=== PATIENT | male | born 1955 | race Caucasian/White ===

== ENCOUNTER 2016-07-09 14:13 | Observation (INO) | payer BC, OTHER ==
[2016-07-09] MEDS ORDERED: IPRATROPIUM-ALBUTEROL 3 ML NEB INHALATION STA ×2 (15:05→16:07)
--- NOTE | 2016-07-09 15:09 | ED ---
SOB HPI - General Chief Complaint: Shortness of Breath Stated Complaint: SOB Time Seen by Provider: 07/09/16 14:43 Source: patient, family, RN notes reviewed Mode of arrival: wheelchair Limitations: no limitations - History of Present Illness Initial Comments: This is a [id number] male history of lung cancer this fairly aggressive is had 10 days radiation treatment followed by chemotherapy that was last given 3 weeks ago complains of progressive shortness of breath especially over last 3 days she's had a dry cough no fever chills or sweats he does cough it does any phlegm is clear. He denies any overt chest pain. No complaints he is a former smoker but has never been diagnosed he states was COPD or emphysema. MD Complaint: shortness of breath, cough - Related Data Home Medications Medication Instructions Recorded Confirmed Losartan Potassium [Cozaar] 100 mg PO DAILY 09/08/15 07/09/16 amLODIPine BESYLATE [Norvasc] 10 mg PO DAILY 09/08/15 07/09/16 glipiZIDE [Glucotrol] 5 mg PO AC-BID 09/08/15 07/09/16 metFORMIN HCL [Glucophage] 1,000 mg PO BID 09/08/15 07/09/16 ALPRAZolam [Xanax] 1 mg PO Q8H PRN 07/09/16 07/09/16 Albuterol Inhaler [Ventolin Hfa 1 - 2 puff INHALATION RT-Q6H PRN 07/09/16 Inhaler] Atorvastatin [Lipitor] 20 mg PO HS 07/09/16 07/09/16 HYDROcodone/APAP 7.5-325MG [[place] 1 tab PO Q6HR PRN 07/09/16 07/09/16 7.5-325] Naproxen Sodium/P-Ephed HCl [Aleve 1 tab PO Q12H PRN 07/09/16 07/09/16 Cold and Sinus Caplet] Allergies Allergy/AdvReac Type Severity Reaction Status Date / Time Penicillins AdvReac SEE COMMENT Verified 07/09/16 14:53 Review of Systems ROS Statement: Those systems with pertinent positive or pertinent negative responses have been documented in the HPI. ROS Other: All systems not noted in ROS Statement are negative. Past Medical History Past Medical History: Cancer, Diabetes Mellitus, Hyperlipidemia, Hypertension Additional Past Medical History / Comment(s): diverticulitis, arthritis, kidney stones lung ca and liver ca brain mets History of Any Multi-Drug Resistant Organisms: None Reported Past Surgical History: Orthopedic Surgery Additional Past Surgical History / Comment(s): KIDNEY STONE REMOVED, ORIF Lt tibia, left knee arthroscopy x 2, rey cataracts, Past Anesthesia/Blood Transfusion Reactions: Postoperative Nausea & Vomiting ( PONV) Past Psychological History: No Psychological Hx Reported Smoking Status: Current every day smoker Past Alcohol Use History: None Reported, Heavy Additional Past Alcohol Use History / Comment(s): smoked- 2 PPD for past 30 yrs,lately has cut down to few cig per day, quit drinking >35 years ago drank heavy in younger years then quit Past Drug Use History: None Reported - Past Family History Mother Family Medical History: Cancer Father Additional Family Medical History / Comment(s): ALS General Exam - General Exam Comments Initial Comments: This is a well-developed well-nourished awake alert oriented 3 male Limitations: no limitations General appearance: alert, in no apparent distress Head exam: Present: atraumatic, normocephalic, normal inspection Eye exam: Present: normal appearance, PERRL, EOMI. Absent: scleral icterus, conjunctival injection, periorbital swelling ENT exam: Present: mucous membranes dry Neck exam: Present: normal inspection. Absent: tenderness, meningismus, lymphadenopathy Respiratory exam: Present: wheezes, decreased breath sounds. Absent: respiratory distress, rales, rhonchi, stridor Cardiovascular Exam: Present: regular rate, normal rhythm, normal heart sounds. Absent: systolic murmur, diastolic murmur, rubs, gallop, clicks GI/Abdominal exam: Present: soft, normal bowel sounds. Absent: distended, tenderness, guarding, rebound, rigid Extremities exam: Present: normal inspection, full ROM, normal capillary refill. Absent: tenderness, pedal edema, joint swelling, calf tenderness Back exam: Present: normal inspection Neurological exam: Present: alert, oriented X3, CN II-XII intact Psychiatric exam: Present: normal affect, normal mood Skin exam: Present: warm, dry, intact, normal color. Absent: rash Course Vital Signs 07/09/16 07/09/16 07/09/16 14:30 15:19 15:30 Temperature 97.8 F Pulse Rate 94 90 92 Respiratory 18 Rate Blood Pressure 137/59 O2 Sat by Pulse 93 L Oximetry 07/09/16 07/09/16 07/09/16 16:11 16:12 16:22 Temperature Pulse Rate 94 92 93 Respiratory 20 Rate Blood Pressure 105/65 O2 Sat by Pulse 93 L Oximetry - Reevaluation(s) Reevaluation #1: 07/09/16 16:08 Reevaluation patient revealed him to be still very dyspneic with wheezes and diminished breath sounds rhonchi on the left. Patient will get IV magnesium repeat updraft and some IV steroids Reevaluation #2: 07/09/16 16:39 I did reevaluate the patient after the repeat updraft he did receive IV steroids and IV magnesium is in process. He still does not feel much improved his saturations are in the low 90s to high 80s. Patient will be admitted for inpatient treatment Medical Decision Making - Lab Data Result diagrams: 07/09/16 14:55 07/09/16 14:55 Lab Results 07/09/16 07/09/16 07/09/16 Range/Units 14:55 14:55 14:55 WBC 4.7 (3.8-10.6) k/uL RBC 4.43 (4.30-5.90) m/uL Hgb 13.5 (13.0-17.5) gm/dL Hct 39.9 (39.0-53.0) % MCV 90.1 (80.0-100.0) fL MCH 30.4 (25.0-35.0) pg MCHC 33.7 (31.0-37.0) g/dL RDW 15.9 H (11.5-15.5) % Plt Count 194 (150-450) k/uL Neutrophils % (Manual) 62.0 % Lymphocytes % (Manual) 24.0 % Monocytes % (Manual) 13.0 % Eosinophils % (Manual) 1.0 % Neutrophils # (Manual) 2.9 (1.3-7.7) k/uL Lymphocytes # (Manual) 1.1 (1.0-4.8) k/uL Monocytes # (Manual) 0.6 (0-1.0) k/uL Eosinophils # (Manual) 0.0 (0-0.7) k/uL Nucleated RBCs 0 (0-0) /100 WBC Manual Slide Review Performed PT (9.0-12.0) sec INR (<1.1) APTT (22.0-30.0) sec Sodium 144 (137-145) mmol/L Potassium 4.8 (3.5-5.1) mmol/L Chloride 106 (98-107) mmol/L Carbon Dioxide 20 L (22-30) mmol/L Anion Gap 18 mmol/L BUN 16 (9-20) mg/dL Creatinine 1.09 (0.66-1.25) mg/dL Est GFR (MDRD) Af Amer >60 (>60 ml/min/1.73 sqM) Est GFR (MDRD) Non-Af >60 (>60 ml/min/1.73 sqM) Glucose 105 H (74-99) mg/dL Calcium 9.2 (8.4-10.2) mg/dL Magnesium 1.8 (1.6-2.3) mg/dL Total Bilirubin 0.6 (0.2-1.3) mg/dL AST 28 (17-59) U/L ALT 40 (21-72) U/L Alkaline Phosphatase 146 H (38-126) U/L Total Creatine Kinase 41 L (55-170) U/L CK-MB (CK-2) 0.4 (0.0-2.4) ng/mL CK-MB (CK-2) Rel Index 1.0 Troponin I <0.012 (0.000-0.034) ng/mL NT-Pro-B Natriuret Pep pg/mL Total Protein 7.3 (6.3-8.2) g/dL Albumin 4.2 (3.5-5.0) g/dL 07/09/16 07/09/16 Range/Units 14:55 14:55 WBC (3.8-10.6) k/uL RBC (4.30-5.90) m/uL Hgb (13.0-17.5) gm/dL Hct (39.0-53.0) % MCV (80.0-100.0) fL MCH (25.0-35.0) pg MCHC (31.0-37.0) g/dL RDW (11.5-15.5) % Plt Count (150-450) k/uL Neutrophils % (Manual) % Lymphocytes % (Manual) % Monocytes % (Manual) % Eosinophils % (Manual) % Neutrophils # (Manual) (1.3-7.7) k/uL Lymphocytes # (Manual) (1.0-4.8) k/uL Monocytes # (Manual) (0-1.0) k/uL Eosinophils # (Manual) (0-0.7) k/uL Nucleated RBCs (0-0) /100 WBC Manual Slide Review PT 10.7 (9.0-12.0) sec INR 1.1 (<1.1) APTT 25.3 (22.0-30.0) sec Sodium (137-145) mmol/L Potassium (3.5-5.1) mmol/L Chloride (98-107) mmol/L Carbon Dioxide (22-30) mmol/L Anion Gap mmol/L BUN (9-20) mg/dL Creatinine (0.66-1.25) mg/dL Est GFR (MDRD) Af Amer (>60 ml/min/1.73 sqM) Est GFR (MDRD) Non-Af (>60 ml/min/1.73 sqM) Glucose (74-99) mg/dL Calcium (8.4-10.2) mg/dL Magnesium (1.6-2.3) mg/dL Total Bilirubin (0.2-1.3) mg/dL AST (17-59) U/L ALT (21-72) U/L Alkaline Phosphatase (38-126) U/L Total Creatine Kinase (55-170) U/L CK-MB (CK-2) (0.0-2.4) ng/mL CK-MB (CK-2) Rel Index Troponin I (0.000-0.034) ng/mL NT-Pro-B Natriuret Pep 99 pg/mL Total Protein (6.3-8.2) g/dL Albumin (3.5-5.0) g/dL - EKG Data -: EKG Interpreted by Ga EKG shows normal: sinus rhythm (Sinus rhythm a rate of 93. Interval 166 QRS duration 110 daily since QTC of 380/472 with anterior fascicular block inferior changes no acute ST elevation or depression.) - Radiology Data Radiology results: report reviewed (X-ray shows no acute findings. The findings are consistent with lung cancer), image reviewed Critical Care Time Critical Care Time: Yes Critical Care Time: 31 minutes of critical care time which included the initial assessment with history physical lab and x-rays. Multiple reevaluation of the patient response to therapy evaluation of old charting. Discussion with the admitting physician. Admission orders and documentation the above. Disposition Clinical Impression: Lung cancer, Acute bronchospasm, Adult respiratory distress syndrome, Hypoxemia Disposition: ADMITTED IP TO THIS HOSP Condition: Serious
--- NOTE | 2016-07-09 15:23 | XR ---
EXAMINATION TYPE: XR chest 2V DATE OF EXAM: 07/09/2016 3:17 PM COMPARISON: 2 view chest x-ray 25 Nov 2015 HISTORY: Shortness of breath, lung carcinoma with difficulty breathing TECHNIQUE: Frontal and lateral views of the chest are obtained on 3 images. FINDINGS: There is no pleural effusion or pneumothorax seen. Increased right paratracheal density, m ass effect on the trachea is again noted. There are overlying cardiac leads. The cardiac silhouette s ize is within normal limits. Increased AP diameter of the chest compatible with possible underlying emphysema. The osseous structures are intact. IMPRESSION: Findings compatible with patient's history of lung carcinoma
[2016-07-09 15:27] LABS: INR 1.1 (<1.1)
[2016-07-09 15:28] LABS: Partial Thromboplastin Time 25.3 sec (22.0-30.0); Prothrombin Time 10.7 sec (9.0-12.0)
[2016-07-09 15:29] LABS: Aty Lym Flag Slight; CH 30.4; CHCM 33.8; HCT 39.9 % (39.0-53.0); HDW 2.83; HGB 13.5 gm/dL (13.0-17.5); MCH 30.4 pg (25.0-35.0); MCHC 33.7 g/dL (31.0-37.0); MCV 90.1 fL (80.0-100.0); Mean Platelet Volume 7.5; RBC 4.43 m/uL (4.30-5.90); RDW 15.9 % (11.5-15.5); WBC 4.7 k/uL (3.8-10.6); WBC (Perox) 4.77
[2016-07-09 15:30] LABS: ALT 40 U/L (21-72); AST 28 U/L (17-59); Alkaline Phosphatase 146 U/L (38-126); Anion Gap 18 mmol/L; Blood Urea Nitrogen 16 mg/dL (9-20); Calcium 9.2 mg/dL (8.4-10.2); Carbon Dioxide 20 mmol/L (22-30); Chloride 106 mmol/L (98-107); Glucose 105 mg/dL (74-99); Magnesium 1.8 mg/dL (1.6-2.3); Non-African American GFR(MDRD) >60 (>60 ml/min/1.73 sqM); Potassium 4.8 mmol/L (3.5-5.1); Sodium 144 mmol/L (137-145); Total Bilirubin 0.6 mg/dL (0.2-1.3); Total Protein 7.3 g/dL (6.3-8.2)
[2016-07-09 15:34] LABS: Add Differential Manual Differential; Creatine Kinase 41 U/L (55-170)
[2016-07-09 15:42] LABS: Manual Review Performed; Nucleated Red Blood Cells 0 /100 WBC (0-0); Total Cells Counted 100
[2016-07-09 15:46] LABS: Creatine Kinase MB 0.4 ng/mL (0.0-2.4); Troponin I <0.012 ng/mL (0.000-0.034)
[2016-07-09] MEDS ORDERED: methylPREDNISolone SOD SUCCI 125 MG/2 ML VIAL IV STA (16:07)
[2016-07-09] MEDS ORDERED: MAGNESIUM SULFATE-D5W PMX 1 GM in DEXTROSE/WATER 1 100ML.BAG IVPB ONE (16:07)
[2016-07-09] MEDS ORDERED: ALPRAZolam 0.5 MG TAB PO PRN (16:43)
[2016-07-09] MEDS ORDERED: NAPROXEN SODIUM PO PRN (16:43)
[2016-07-09] MEDS ORDERED: P EPHED HCL PO PRN (16:43)
[2016-07-09] MEDS: glipiZIDE 10 MG TAB PO SCH (19:07)
[2016-07-09] MEDS: INSULIN LISPRO (humaLOG) 300 UNIT/3 ML VIAL SQ SCH ×2 (19:07→22:19)
[2016-07-09] MEDS: metFORMIN 500 MG TAB PO SCH (19:08)
[2016-07-09] MEDS: methylPREDNISolone SOD SUCCI 125 MG/2 ML VIAL IV SCH (19:10)
[2016-07-09] MEDS: SODIUM CHLORIDE 0.9% 1,000 ML IV SCH (19:11)
[2016-07-09] MEDS: IPRATROPIUM-ALBUTEROL 3 ML NEB INHALATION SCH (19:39)
[2016-07-09 20:11] LABS: Glucose,Whole Blood 151 mg/dL (75-99)
[2016-07-09] MEDS ORDERED: NAPROXEN 250 MG TAB PO PRN (20:31)
[2016-07-09] MEDS ORDERED: PSEUDOEPHEDRINE 12HR 120 MG TABLET.ER PO PRN (20:31)
[2016-07-09] MEDS ORDERED: TEMAZEPAM 15 MG CAP PO SCH (21:00)
[2016-07-09] MEDS: LEVOFLOXACIN 500MG-D5W PMX 500 MG in DEXTROSE/WATER 1 100ML.BAG IVPB SCH (22:04)
[2016-07-09] MEDS: CHLORPHEN-HYDROcod 8-10mg/5ml 5 ML ORAL.SYRG PO SCH (22:05)
[2016-07-09] MEDS: ATORVASTATIN 20 MG TAB PO SCH (22:06)
[2016-07-09] MEDS: HYDROcodone/APAP 7.5-325MG 1 EACH TAB PO PRN (22:07)
[2016-07-09] MEDS: HEPARIN SODIUM,PORCINE 5,000 UNIT/ML 1 ML VIAL SQ SCH (22:10)
[2016-07-09] MEDS ORDERED: TEMAZEPAM 15 MG CAP PO PRN (22:12)
[2016-07-10] MEDS: IPRATROPIUM-ALBUTEROL 3 ML NEB INHALATION SCH ×7 (00:07→23:15)
[2016-07-10] MEDS: HYDROmorphone 1 MG/ML 1 ML SYRINGE IVP PRN ×3 (00:38→23:11)
[2016-07-10] MEDS: methylPREDNISolone SOD SUCCI 125 MG/2 ML VIAL IV SCH ×4 (00:38→18:05)
[2016-07-10 06:24] LABS: Hemoglobin A1C 6.4 % (4.2-6.1)
[2016-07-10] MEDS: FORMOTEROL FUMARATE 20 MCG/2 ML NEBU INHALATION SCH ×2 (07:49→21:31)
[2016-07-10] MEDS: BUDESONIDE 0.5 MG/2 ML NEBU INHALATION SCH ×2 (07:49→21:31)
[2016-07-10 08:22] LABS: Glucose,Whole Blood 192 mg/dL (75-99)
[2016-07-10 08:29] LABS: Basophils % (A) 1 %; CH 29.9; CHCM 32.7; Eosinophils % (A) 0 %; HCT 39.2 % (39.0-53.0); HDW 2.79; HGB 12.8 gm/dL (13.0-17.5); Luc # (Auto) 0.15; Luc % (Auto) 4; Lymphocytes # (A) 0.7 k/uL (1.0-4.8); Lymphocytes % (A) 19 %; MCH 29.8 pg (25.0-35.0); MCHC 32.5 g/dL (31.0-37.0); MCV 91.7 fL (80.0-100.0); Mean Platelet Volume 7.2; Monocytes # (A) 0.1 k/uL (0-1.0); Monocytes % (A) 1 %; Neutrophils # (A) 2.6 k/uL (1.3-7.7); Neutrophils % (A) 75 %; RBC 4.28 m/uL (4.30-5.90); RDW 15.5 % (11.5-15.5); WBC 3.5 k/uL (3.8-10.6); WBC (Perox) 3.65
[2016-07-10] MEDS: glipiZIDE 10 MG TAB PO SCH ×2 (08:30→18:04)
[2016-07-10] MEDS: metFORMIN 500 MG TAB PO SCH ×2 (08:31→18:04)
[2016-07-10] MEDS: INSULIN LISPRO (humaLOG) 300 UNIT/3 ML VIAL SQ SCH ×4 (08:31→21:46)
[2016-07-10] MEDS: amLODIPine 10 MG TAB PO SCH (08:32)
[2016-07-10] MEDS: LOSARTAN 50 MG TAB PO SCH (08:32)
[2016-07-10] MEDS: HEPARIN SODIUM,PORCINE 5,000 UNIT/ML 1 ML VIAL SQ SCH ×2 (08:32→20:06)
[2016-07-10] MEDS: CHLORPHEN-HYDROcod 8-10mg/5ml 5 ML ORAL.SYRG PO SCH ×2 (08:37→20:04)
[2016-07-10 08:45] LABS: Anion Gap 19 mmol/L; Blood Urea Nitrogen 18 mg/dL (9-20); Calcium 9.4 mg/dL (8.4-10.2); Carbon Dioxide 18 mmol/L (22-30); Chloride 104 mmol/L (98-107); Glucose 223 mg/dL (74-99); Non-African American GFR(MDRD) >60 (>60 ml/min/1.73 sqM); Potassium 4.6 mmol/L (3.5-5.1); Sodium 141 mmol/L (137-145)
--- NOTE | 2016-07-10 11:08 | XR ---
EXAMINATION TYPE: XR chest 1V portable DATE OF EXAM: 07/10/2016 10:25 AM COMPARISON: 07/09/2016 HISTORY: COPD TECHNIQUE: Single frontal view of the chest is obtained. FINDINGS: Marked mediastinal enlargement with tracheal deviation is stable. Cardiomegaly, COPD, are again noted with no evidence of pleural effusion or pneumothorax. IMPRESSION: 1. Stable mediastinal mass with no acute process.
--- NOTE | 2016-07-10 11:08 | HP ---
DATE OF ADMISSION: 07/09/2015 CHIEF COMPLIANT: Shortness of breath and cough. HISTORY OF PRESENT ILLNESS: This 60-year-old
[2016-07-10 11:15] LABS: Glucose,Whole Blood 187 mg/dL (75-99)
--- NOTE | 2016-07-10 11:31 | HP ---
DATE OF ADMISSION: 07/09/2016. CHIEF COMPLAINT: Shortness of breath and abdominal pain. HISTORY OF PRESENT ILLNESS: This 60-year-old gentleman with a past medical history of multiple medical problems, recently diagnosed with small cell lung cancer, history of diabetes, history of hypertension, hyperlipidemia, history of degenerative joint disease, history of nephrectomy being followed by Dr. Klein in the outpatient setting was complaining of shortness of breath, incessant cough and as well as abdominal pain, which is in the left groin area. The patient came to [facility] and admitted to the hospital for further evaluation and treatment. The patient had aggressive radiation followed by chemotherapy. Dr. Jerez is following the patient closely. There is no history of fever, rigors or chills. No history of headache, loss of consciousness or seizures at this time. PAST MEDICAL HISTORY: History of recently diagnosed small cell lung cancer. History of diabetes, hypertension, hyperlipidemia, history of stage IV lung cancer with mets. Medications prior to admission include: 1. Xanax 1 mg p.o. t.i.d. p.r.n. 2. [place] 7.5 q6h prn 3. Glucotrol 5 mg p.o. b.i.d. 4. Norvasc 10 mg p.o. daily. 5. Naprosyn 1 tablet b.i.d. 6. Cozaar 100 milligrams daily. 7. Lipitor 20 mg a day. ALLERGIES: ntd. FAMILY HISTORY: History of cancer, ALS in the family. SOCIAL HISTORY: Previous history of smoking. No history of alcohol intake. REVIEW OF SYSTEMS: ENT: No diminished hearing or vision. CARDIOVASCULAR: As mentioned earlier. RESPIRATORY: As mentioned earlier. GI: No nausea. : No dysuria. Nervous system: No numbness, weakness. ALLERGIES/IMMUNOLOGY: No asthma or hayfever. MUSCULOSKELETAL: As mentioned earlier. HEMATOLOGY/ONCOLOGY: No history of anemia. ENDOCRINE: No history of diabetes mellitus . CONSTITUTIONAL: As mentioned earlier. DERMATOLOGY: Negative. RHEUMATOLOGY: Negative. PSYCHIATRY: As mentioned earlier. PHYSICAL EXAMINATION: The patient alert and oriented times three. Pulse is 87, blood pressure 120/76, respirations 18, temperature 97.8. Pulse ox 97% on 2 L. HEENT: Conjunctivae normal. Oral mucosa moist. NECK: Obese. CARDIOVASCULAR: S1, S2 muffled, no S3, no S4. RESPIRATORY: Breath sounds diminished at the bases. Breath efforts are markedly increased. Bilateral scattered rhonchi and crackles. ABDOMEN: Soft, obese, minimal tenderness in the left groin area present, no guarding. No rigidity. No mass palpable. Legs: No edema. No swelling. Nervous system: Higher functions as mentioned. Moves all four limbs. No focal deficits. LYMPHATICS: No lymph nodes palpable in the neck, axillae or groin. SKIN: No ulcer, rash or bleeding. Labs at this time show WBC 4.0, hemoglobin 13.5. Glucose 151, alk phos 146. ASSESSMENT: 1. Shortness of breath possible chronic obstructive pulmonary disease, acute exacerbation, and cough with acute purulent tracheobronchitis. 2. Recently diagnosed small cell lung cancer with extensive mets status post radiation chemotherapy. 3. Left lower abdominal pain. 4. Obesity. body mass index 36.6. 5. History of nicotine dependence. 6. Hypertension. 7. Hyperlipidemia. 8. Diabetes mellitus type 2. 9. History of nephrolithiasis. 10. History of degenerative joint disease. 11. Remote history of ETOH. RECOMMENDATIONS AND DISCUSSION: In this 60-year-old gentleman who presented with multiple complex medical issues, we will monitor the patient closely. Continue the current medications. Continue bronchodilators, empiric antibiotics. I would also recommend pulmonary consult with Dr. Phillip who has seen the patient earlier. Otherwise, we will continue to monitor. Guarded prognosis. Further recommendations to follow. A copy of dictation being forwarded to Dr. Klein who is the primary care physician. [facility]
[2016-07-10] MEDS: SALT AND SODA MOUTHWASH 1,000 ML PO SCH ×3 (11:50→20:06)
--- NOTE | 2016-07-10 13:32 | P.CNPUL ---
History of Present Illness Consult date: 07/10/16 Reason for consult: dyspnea, cough, COPD, lung mass Chief complaint: Cough and shortness of breath History of present illness: This is a 60-year-old male who presented emergency department complaining of shortness breath and cough. The patient states this has been worsening over the last 2 months. However over the last 4 days it got so bad he could not walk around his house without getting short of breath. He states he was having intermittent chest pain as well. He just felt like he couldn't breathe. Patient does not wear home oxygen. He was recently diagnosed with small cell lung cancer in November 2015. He states he went to [facility] for whole brain radiation. He was found to have a brain metastases. He is also been on chemotherapy since December. He denies fevers and chills. The patient states he quit smoking in November. He used to smoke 2 packs per day since the age of [age] years old. Not use any nebulizers or inhalers at home. Review of Systems All systems: negative Past Medical History Past Medical History: Cancer, Diabetes Mellitus, Hyperlipidemia, Hypertension Additional Past Medical History / Comment(s): diverticulitis, arthritis, kidney stones 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 and liver ca brain mets masses in abdomen that have been causing pain 2 primary tumors in abdomen, tumor pushes on heart, radiation 3 weeks ago chemo 2 weeks ago short term memory loss since radiation History of Any Multi-Drug Resistant Organisms: None Reported Past Surgical History: Orthopedic Surgery Additional Past Surgical History / Comment(s): KIDNEY STONE REMOVED, ORIF Lt tibia, left knee arthroscopy x 2, rey cataracts, Past Anesthesia/Blood Transfusion Reactions: Postoperative Nausea & Vomiting ( PONV) Past Psychological History: No Psychological Hx Reported Smoking Status: Former smoker Past Alcohol Use History: None Reported, Heavy Additional Past Alcohol Use History / Comment(s): quit november 2016 Past Drug Use History: None Reported - Past Family History Mother Family Medical History: Cancer Father Additional Family Medical History / Comment(s): ALS Medications and Allergies Home Medications Medication Instructions Recorded Confirmed Type Losartan Potassium [Cozaar] 100 mg PO DAILY 09/08/15 07/09/16 History amLODIPine BESYLATE [Norvasc] 10 mg PO DAILY 09/08/15 07/09/16 History glipiZIDE [Glucotrol] 5 mg PO AC-BID 09/08/15 07/09/16 History ALPRAZolam [Xanax] 1 mg PO Q8H PRN 07/09/16 07/09/16 History Atorvastatin [Lipitor] 20 mg PO HS 07/09/16 07/09/16 History HYDROcodone/APAP 7.5-325MG [[place] 1 tab PO Q6HR PRN 07/09/16 07/09/16 History 7.5-325] Naproxen Sodium/P-Ephed HCl [Aleve 1 tab PO Q12H PRN 07/09/16 07/09/16 History Cold and Sinus Caplet] Allergies Allergy/AdvReac Type Severity Reaction Status Date / Time Penicillins AdvReac SEE COMMENT Verified 07/09/16 17:25 Physical Exam Osteopathic Statement: *. No significant issues noted on an osteopathic structural exam other than those noted in the History and Physical/Consult. Vitals: Vital Signs Temp Pulse Pulse Pulse Resp BP BP 07/10/16 11:57 88 07/10/16 11:49 88 07/10/16 08:14 88 07/10/16 08:00 84 07/10/16 07:59 84 07/10/16 07:49 88 07/10/16 07:00 97.9 F 84 18 127/84 07/10/16 04:35 80 07/10/16 04:19 76 07/10/16 00:28 129/64 07/10/16 00:17 81 07/10/16 00:09 81 07/09/16 23:00 97.7 F 88 16 07/09/16 19:49 93 07/09/16 19:39 93 07/09/16 17:35 97.8 F 87 18 121/76 07/09/16 16:54 96.8 F L 99 18 115/68 Pulse Ox 07/10/16 11:57 07/10/16 11:49 07/10/16 08:14 07/10/16 08:00 07/10/16 07:59 07/10/16 07:49 95 07/10/16 07:00 95 07/10/16 04:35 07/10/16 04:19 07/10/16 00:28 07/10/16 00:17 07/10/16 00:09 07/09/16 23:00 92 L 07/09/16 19:49 07/09/16 19:39 93 L 07/09/16 17:35 96 07/09/16 16:54 95 Intake and Output 07/09/16 07/10/16 07/10/16 22:59 06:59 14:59 Intake Total 270 180 160 Output Total 600 300 Balance 270 -420 -140 Intake: IV 20 180 160 Levofloxacin 500Mg-D5w 100 Pmx 500 mg In Dextrose/ Water 1 100ml.bag @ 100 mls/hr IVPB Q24H [facility]UPINDER Rx#: [id number] Sodium Chloride 0.9% 1, 20 80 160 000 ml @ 20 mls/hr IV . Q24H BHUPINDER Rx#:[id number] Oral 250 Output: Urine 600 300 Other: Voiding Method Urinal Urinal # Voids 300 300 Weight 129.274 kg 129.274 kg Patient Weight 07/11/16 06:59 Weight 129.274 kg Gen.: Patient is alert and oriented 3, no acute distress Cardiovascular: Regular rate and rhythm, S1/S2 Lungs: Diminished breath sounds bilaterally no wheezes rales or rhonchi Abdomen: Soft nontender nondistended positive bowel sounds Extremities: No edema Results - Laboratory Findings CBC and BMP: 07/10/16 08:05 07/10/16 08:05 PT/INR, D-dimer PT 10.7 sec (9.0-12.0) 07/09/16 14:55 INR 1.1 (<1.1) 07/09/16 14:55 Abnormal lab findings: Abnormal Labs 07/09/16 07/10/16 07/10/16 20:10 07:15 08:05 WBC 3.5 L RBC 4.28 L Hgb 12.8 L Lymphocytes # 0.7 L Carbon Dioxide Glucose POC Glucose (mg/dL) 151 H 192 H 07/10/16 07/10/16 08:05 11:11 WBC RBC Hgb Lymphocytes # Carbon Dioxide 18 L Glucose 223 H POC Glucose (mg/dL) 187 H - Diagnostic Findings Chest x-ray: report reviewed, image reviewed Assessment and Plan Plan: Acute hypoxic respiratory failure Acute exacerbation of COPD Tracheobronchitis Small cell lung cancer with metastases, stage IV Cough History of tobacco abuse Leukopenia Anemia Hyperglycemia Diabetes mellitus type 2 Hypertension Dyslipidemia Obesity O2 to maintain saturation greater than equal to 88% IV Solu-Medrol Bronchodilators and Pulmicort/Perforomist Antibiotics: Levaquin Sputum culture Continue home medications Blood sugar control Continued smoking cessation Chemo per Dr. Jerez Pain control Incentive spirometry and pulmonary hygiene GI and DVT prophylaxis
[2016-07-10 14:46] VITALS: BMI 34.5
[2016-07-10 16:55] LABS: Glucose,Whole Blood 88 mg/dL (75-99)
[2016-07-10] MEDS: SODIUM CHLORIDE 0.9% 1,000 ML IV SCH (16:55)
[2016-07-10] MEDS: HYDROcodone/APAP 7.5-325MG 1 EACH TAB PO PRN (20:05)
[2016-07-10] MEDS: ATORVASTATIN 20 MG TAB PO SCH (20:06)
[2016-07-10 20:54] LABS: Glucose,Whole Blood 139 mg/dL (75-99)
[2016-07-10] MEDS: LEVOFLOXACIN 500MG-D5W PMX 500 MG in DEXTROSE/WATER 1 100ML.BAG IVPB SCH (21:45)
--- NOTE | 2016-07-10 21:52 | P.CONS ---
History of Present Illness - Reason for Consult Consult date: 07/10/16 Metastatic small cell lung cancer. Chest pressure and SOB - History of Present Illness The patient is a 60-year-old gentleman well known to myself. He was initially seen in consult in 11/20, when he had presented to [facility], complaining of progressive right upper quadrant abdominal pain. He was found to have multiple liver metastasis. Additional last CT scans at that time revealed right upper lobe mass, extending into the mediastinum and crossing the midline along with other mediastinal adenopathy. Liver biopsy was positive for small cell lung cancer. The patient was then started on chemotherapy with [employer]-16 and carboplatin, and completed 4 cycles. He had marked improvement in the right upper quadrant abdominal pain. He was then referred to [facility], for possible clinical trials of maintenance therapy. While eligibility was being evaluated, per their recommendations, he had an additional cycle in 02/20. He was found to be eligible for a clinical trial, and as part of the pretrial workup, had an MRI of the brain in 04/22. This revealed a new mass in the left cerebellum. He underwent whole brain radiation for the same. The case was again discussed with Haylee, and received an additional cycle of chemotherapy, in early . Tolerance of the most recent cycle was somewhat worse, with increased fatigue, as well as decrease in appetite. CT scans done subsequently in 06/22, showed a mild decrease in the lung and mediastinal mass, with stable disease elsewhere. The chemotherapy was therefore discontinued, with a plan for a repeat MRI in the first week of July 2016, followed by referral back to [facility] for the above-mentioned clinical trial, if the MRI results were satisfactory. The patient did call the office yesterday stating that he was experiencing chest pressure, along with the increased shortness of breath made worse by exertion. He was also complaining of palpitations. He was admitted to go to the ER. Chest x-ray in the ER showed no evidence of infection. Cardiac enzymes were negative. He had had a CTA of the chest done in late 05/23 were similar symptoms which was negative for PE. Based on clinical evaluation, symptoms were felt to be due to bronchospastic disease. As oxygen saturation was low despite treatment in the ER, he was admitted for further management. Review of Systems Constitutional: Reports fatigue, Reports poor appetite, Reports weakness Eyes: denies blurred vision, denies pain Ears: deny: decreased hearing, ear discharge, earache, tinnitus Ears, nose, mouth and throat: Denies headache, Denies sore throat Cardiovascular: Reports chest pain, Reports palpitations, Reports shortness of breath Respiratory: Reports cough with sputum, Reports dyspnea Gastrointestinal: Denies abdominal pain, Denies diarrhea, Denies nausea, Denies vomiting Genitourinary: Reports as per HPI (No specific complaints) Musculoskeletal: Reports as per HPI, Denies myalgias Integumentary: Denies pruritus, Denies rash Neurological: Reports weakness Psychiatric: Reports anxiety Endocrine: Denies fatigue, Denies weight change Hematologic/Lymphatic: Reports as per HPI Past Medical History Past Medical History: Cancer, Diabetes Mellitus, Hyperlipidemia, Hypertension Additional Past Medical History / Comment(s): diverticulitis, arthritis, kidney stones 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 and liver ca brain mets masses in abdomen that have been causing pain 2 primary tumors in abdomen, tumor pushes on heart, radiation 3 weeks ago chemo 2 weeks ago short term memory loss since radiation History of Any Multi-Drug Resistant Organisms: None Reported Past Surgical History: Orthopedic Surgery Additional Past Surgical History / Comment(s): KIDNEY STONE REMOVED, ORIF Lt tibia, left knee arthroscopy x 2, rey cataracts, Past Anesthesia/Blood Transfusion Reactions: Postoperative Nausea & Vomiting ( PONV) Past Psychological History: No Psychological Hx Reported Smoking Status: Former smoker Past Alcohol Use History: None Reported, Heavy Additional Past Alcohol Use History / Comment(s): quit november 2016 Past Drug Use History: None Reported - Past Family History Mother Family Medical History: Cancer Father Additional Family Medical History / Comment(s): ALS Medications and Allergies Home Medications Medication Instructions Recorded Confirmed Type Losartan Potassium [Cozaar] 100 mg PO DAILY 09/08/15 07/09/16 History amLODIPine BESYLATE [Norvasc] 10 mg PO DAILY 09/08/15 07/09/16 History glipiZIDE [Glucotrol] 5 mg PO AC-BID 09/08/15 07/09/16 History ALPRAZolam [Xanax] 1 mg PO Q8H PRN 07/09/16 07/09/16 History Atorvastatin [Lipitor] 20 mg PO HS 07/09/16 07/09/16 History HYDROcodone/APAP 7.5-325MG [[place] 1 tab PO Q6HR PRN 07/09/16 07/09/16 History 7.5-325] Naproxen Sodium/P-Ephed HCl [Aleve 1 tab PO Q12H PRN 07/09/16 07/09/16 History Cold and Sinus Caplet] Allergies Allergy/AdvReac Type Severity Reaction Status Date / Time Penicillins AdvReac SEE COMMENT Verified 07/09/16 17:25 Physical Exam Vitals: Vital Signs Temp Pulse Pulse Resp BP Pulse Ox 07/10/16 16:44 94 07/10/16 16:32 94 07/10/16 14:53 97.9 F 96 18 126/67 94 L 07/10/16 11:57 88 07/10/16 11:49 88 07/10/16 08:14 88 07/10/16 08:00 84 07/10/16 07:59 84 07/10/16 07:49 88 95 07/10/16 07:00 97.9 F 84 18 127/84 95 07/10/16 04:35 80 07/10/16 04:19 76 07/10/16 00:28 129/64 07/10/16 00:17 81 07/10/16 00:09 81 07/09/16 23:00 97.7 F 88 16 92 L Intake and Output 07/10/16 07/10/16 07/10/16 06:59 14:59 22:59 Intake Total 180 160 Output Total 600 300 Balance -420 -140 Intake: IV 180 160 Levofloxacin 500Mg-D5w 100 Pmx 500 mg In Dextrose/ Water 1 100ml.bag @ 100 mls/hr IVPB Q24H [facility] Rx#: [id number] Sodium Chloride 0.9% 1, 80 160 000 ml @ 20 mls/hr IV . Q24H [facility] Rx#:[id number] Output: Urine 600 300 Other: Voiding Method Urinal Urinal # Voids 300 300 Weight 122 kg Patient Weight 07/11/16 06:59 Weight 122 kg - Constitutional General appearance: mild distress - EENT Eyes: EOMI, PERRLA ENT: normal oropharynx - Neck Neck: no lymphadenopathy - Respiratory Respiratory: bilateral: wheezing, prolonged expiration - Cardiovascular Rhythm: regular Heart sounds: normal: S1, S2 - Gastrointestinal General gastrointestinal: normal bowel sounds, soft - Integumentary Integumentary: normal - Neurologic Neurologic: CNII-XII intact - Musculoskeletal Musculoskeletal: generalized weakness, strength equal bilaterally - Psychiatric Psychiatric: A&O x's 3, appropriate affect Results CBC & Chem 7: 07/10/16 08:05 07/10/16 08:05 Labs: Abnormal Lab Results - Last 24 Hours (Table) 07/10/16 07/10/16 07/10/16 Range/Units 07:15 08:05 08:05 WBC 3.5 L (3.8-10.6) k/uL RBC 4.28 L (4.30-5.90) m/uL Hgb 12.8 L (13.0-17.5) gm/dL Lymphocytes # 0.7 L (1.0-4.8) k/uL Carbon Dioxide 18 L (22-30) mmol/L Glucose 223 H (74-99) mg/dL POC Glucose (mg/dL) 192 H (75-99) mg/dL 07/10/16 07/10/16 Range/Units 11:11 20:42 WBC (3.8-10.6) k/uL RBC (4.30-5.90) m/uL Hgb (13.0-17.5) gm/dL Lymphocytes # (1.0-4.8) k/uL Carbon Dioxide (22-30) mmol/L Glucose (74-99) mg/dL POC Glucose (mg/dL) 187 H 139 H (75-99) mg/dL Chest x-ray: report reviewed CT scan - abdomen: report reviewed CT scan - chest: report reviewed CT scan - pelvis: report reviewed (CTA of the chest from 05/23 also reviewed) Assessment and Plan (1) Adult respiratory distress syndrome Narrative/Plan: The patient had had similar symptoms, in late 05/23, with CTA of the chest at that time being negative. During this admission, cardiac workup was also negative. Based on his clinical presentation and exam , it is felt that his addition represents bronchospastic disease. The patient does not have a known diagnosis of COPD, but is at high risk for the condition, given his history of smoking and lung cancer, with imaging also showing evidence for the same. He is currently more comfortable, with initiation of steroids, breathing treatments , and oxygen. Pulmonary medicine has been consulted. Defer to them for further management. Status: Acute (2) Lung cancer Narrative/Plan: The patient has small cell lung cancer, metastatic to the liver and brain. As noted, most recent CT scans of the chest abdomen and pelvis , in 06/22, show mild decrease in the size of the lung and mediastinal mass, with stable disease elsewhere. He was supposed to have a repeat MRI of the brain, but did not keep that appointment due to the development of the symptoms leading to this admission. This will be rescheduled as an outpatient. Again, if the patient is found to have a satisfactory MRI brain, he will be referred back to the [facility], for reevaluation for clinical trials. Status: Acute
--- NOTE | 2016-07-10 22:09 | PN ---
DATE OF SERVICE: 07/10/2016 This 60-year-old gentleman admitted with shortness of breath and abdominal discomfort, also had COPD acute exacerbation, acute purulent tracheobronchitis. Patient on IV steroids and bronchodilators. Pulmonary is also following the patient. There is no history of chest pain, palpitations. PAST MEDICAL HISTORY: Reviewed. REVIEW OF SYSTEMS: CARDIOVASCULAR: No angina or palpitations. RESPIRATORY: As mentioned earlier. GI: No nausea. : No dysuria. NERVOUS: No numbness or weakness. ALLERGY/IMMUNOLOGY: No asthma. MUSCULOSKELETAL: As mentioned earlier. HEMATOLOGY/ONCOLOGY: No history of anemia. ENDOCRINE: No history of diabetes. CONSTITUTIONAL: As mentioned earlier. DERMATOLOGY: Negative. RHEUMATOLOGY: Negative. PSYCHIATRY: As mentioned earlier. PHYSICAL EXAM: The patient is alert and oriented x3. Pulse is 96, blood pressure 126/67, respirations 18, temperature 97.2, pulse ox 94% on room air. HEENT: Conjunctivae normal. NECK: No jugular venous distension. CARDIOVASCULAR: S1 and S2 muffled. RESPIRATORY: Breath sounds diminished in the bases. Bilateral scattered rhonchi and crackles. Expiratory wheezing also present. ABDOMEN: Soft, obese. LEGS: No edema. NERVOUS SYSTEM: No focal deficits. Current medications are: 1. [place] 7.5. 2. Xanax. 3. Norvasc. 4. Lipitor. 5. Tussionex. 6. Glucotrol. 7. Dilaudid. 8. Humalog. 9. Levaquin. 10. Solu-Medrol. 11. Naprosyn. 12. Sodium bicarb. 13. Protonix. 14. Sudafed. 15. Restoril. LABS: WBC 3.6, hemoglobin is 12.8. ASSESSMENT: 1. Shortness of breath, possible chronic obstructive pulmonary disease acute exacerbation with acute purulent tracheobronchitis and severe cough. 2. Recently diagnosed small-cell lung cancer with extensive metastases, status post radiation and chemotherapy. 3. Mediastinal lymphadenopathy. 4. Mild leukopenia. 5. Anemia, normocytic, possibly secondary to malignancy. 6. Left lower quadrant abdominal pain. 7. Obesity, body mass index 36.6. 8. History of nicotine dependence. 9. Hypertension. 10. Hyperlipidemia. 11. Diabetes mellitus type 2. 12. Nephrolithiasis. 13. History of degenerative joint disease. 14. Remote history of EtOH. 15. Obesity with a body mass index of 34.5. 16. NO CODE, NO CARDIOPULMONARY RESUSCITATION, NO VENTILATOR. RECOMMENDATIONS AND DISCUSSION: In this 60-year-old gentleman who presented with multiple complex medical issues, will monitor the patient closely, continue with steroids, continue with the bronchodilators, continue with the empiric antibiotics. Guarded prognosis because of multiple complex medical issues. Further recommendations to follow.
[2016-07-10] MEDS ORDERED: IPRATROPIUM-ALBUTEROL 3 ML NEB INHALATION PRN (23:16)
[2016-07-11] MEDS: methylPREDNISolone SOD SUCCI 125 MG/2 ML VIAL IV SCH ×3 (00:25→12:18)
[2016-07-11] MEDS: SALT AND SODA MOUTHWASH 1,000 ML PO SCH ×6 (00:26→21:47)
[2016-07-11 07:01] LABS: Glucose,Whole Blood 120 mg/dL (75-99)
[2016-07-11 07:41] LABS: Basophils % (A) 0 %; CH 29.9; Eosinophils % (A) 0 %; HCT 36.1 % (39.0-53.0); HDW 2.76; HGB 11.9 gm/dL (13.0-17.5); Luc # (Auto) 0.31; Luc % (Auto) 2; Lymphocytes # (A) 1.1 k/uL (1.0-4.8); Lymphocytes % (A) 6 %; MCHC 32.9 g/dL (31.0-37.0); MCV 91.1 fL (80.0-100.0); Mean Platelet Volume 7.4; Monocytes # (A) 0.5 k/uL (0-1.0); Monocytes % (A) 3 %; Neutrophils # (A) 17.2 k/uL (1.3-7.7); Neutrophils % (A) 90 %; RBC 3.97 m/uL (4.30-5.90); RDW 15.7 % (11.5-15.5); WBC 19.2 k/uL (3.8-10.6)
[2016-07-11 08:12] LABS: Anion Gap 17 mmol/L; Blood Urea Nitrogen 25 mg/dL (9-20); Calcium 9.7 mg/dL (8.4-10.2); Carbon Dioxide 20 mmol/L (22-30); Chloride 104 mmol/L (98-107); Glucose 127 mg/dL (74-99); Non-African American GFR(MDRD) >60 (>60 ml/min/1.73 sqM); Sodium 141 mmol/L (137-145)
[2016-07-11] MEDS: INSULIN LISPRO (humaLOG) 300 UNIT/3 ML VIAL SQ SCH ×4 (08:14→21:48)
[2016-07-11] MEDS: LOSARTAN 50 MG TAB PO SCH (08:14)
[2016-07-11] MEDS: metFORMIN 500 MG TAB PO SCH ×2 (08:14→17:26)
[2016-07-11] MEDS: amLODIPine 10 MG TAB PO SCH (08:14)
[2016-07-11] MEDS: glipiZIDE 10 MG TAB PO SCH ×2 (08:15→17:26)
[2016-07-11] MEDS: PANTOPRAZOLE 40 MG TABLET PO SCH (08:15)
[2016-07-11] MEDS: HEPARIN SODIUM,PORCINE 5,000 UNIT/ML 1 ML VIAL SQ SCH ×2 (08:15→21:52)
[2016-07-11] MEDS: CHLORPHEN-HYDROcod 8-10mg/5ml 5 ML ORAL.SYRG PO SCH ×2 (08:20→21:47)
[2016-07-11] MEDS: BUDESONIDE 0.5 MG/2 ML NEBU INHALATION SCH ×2 (08:44→19:13)
[2016-07-11] MEDS: IPRATROPIUM-ALBUTEROL 3 ML NEB INHALATION SCH ×4 (08:44→19:13)
[2016-07-11] MEDS: FORMOTEROL FUMARATE 20 MCG/2 ML NEBU INHALATION SCH ×2 (08:44→19:13)
[2016-07-11] MEDS: HYDROmorphone 1 MG/ML 1 ML SYRINGE IVP PRN (09:53)
[2016-07-11 11:43] LABS: Glucose,Whole Blood 127 mg/dL (75-99)
[2016-07-11] MEDS: HYDROcodone/APAP 7.5-325MG 1 EACH TAB PO PRN ×2 (12:25→21:48)
[2016-07-11 17:12] LABS: Glucose,Whole Blood 80 mg/dL (75-99)
--- NOTE | 2016-07-11 17:51 | PN ---
DATE OF SERVICE: 07/11/2016 The patient is a 60-year-old male who is seen sitting up in bed, is awake and alert, afebrile, hemodynamically stable, in no acute distress. Patient is eager to know what the plan is as far as going home and future treatment. Patient will inquire with his admitting physician and oncologist. On physical exam, vital signs, temp is 97.7, heart rate 85, respiratory rate 18, blood pressure is 139/81, O2 saturation 95% on 3 liters O2 via nasal cannula. HEENT: Head is normocephalic, atraumatic. NECK: Supple. Trachea is midline. LUNGS: Sounds decreased. No rales or wheezes. HEART: S1 and S2 are heard. Not tachycardic. ABDOMEN: Soft. Bowel sounds are heard. EXTREMITIES: With no edema. NEUROLOGIC: The patient is awake and alert. LABS: White count 19.2, hemoglobin is 11.9, hematocrit 36.1 with 204,000 platelets. Sodium is 141, potassium is 5.0, chloride 104, CO2 is 20. Anion gap is 17, BUN is 25, creatinine 0.89, glucose is 127. Calcium is 9.7. No new imaging to review. IMPRESSION: 1. Acute hypoxic respiratory failure. 2. Acute exacerbation of chronic obstructive pulmonary disease. 3. Tracheobronchitis. 4. Small cell lung cancer with metastasis stage IV. 5. Cough. 6. History of tobacco abuse. 7. Leukopenia. 8. Anemia. 9. Hyperglycemia. 10. Diabetes mellitus type 2. 11. Hypertension. 12. Dyslipidemia. 13. Obesity. PLAN: Continue oxygen to maintain saturations greater than or equal to 88%. Continue current medications which have been reviewed with bronchodilators and aerosolized steroids. IV steroids, antibiotics. Continue incentive spirometry and pulmonary hygiene with GI and DVT prophylaxis and recommendations per patient's oncologist. Will follow the patient closely with you, making further changes as necessary.
[2016-07-11 21:31] LABS: Glucose,Whole Blood 121 mg/dL (75-99)
[2016-07-11] MEDS: ATORVASTATIN 20 MG TAB PO SCH (21:47)
[2016-07-11] MEDS: LEVOFLOXACIN 500MG-D5W PMX 500 MG in DEXTROSE/WATER 1 100ML.BAG IVPB SCH (21:52)
[2016-07-12] MEDS: SALT AND SODA MOUTHWASH 1,000 ML PO SCH ×5 (00:04→17:28)
[2016-07-12] MEDS: HYDROmorphone 1 MG/ML 1 ML SYRINGE IVP PRN (01:03)
[2016-07-12] MEDS: metFORMIN 500 MG TAB PO SCH ×2 (07:31→17:29)
[2016-07-12] MEDS: HEPARIN SODIUM,PORCINE 5,000 UNIT/ML 1 ML VIAL SQ SCH (07:31)
[2016-07-12] MEDS: LOSARTAN 50 MG TAB PO SCH (07:31)
[2016-07-12] MEDS: PANTOPRAZOLE 40 MG TABLET PO SCH (07:32)
[2016-07-12] MEDS: glipiZIDE 10 MG TAB PO SCH ×2 (07:32→17:29)
[2016-07-12] MEDS: amLODIPine 10 MG TAB PO SCH (07:32)
[2016-07-12] MEDS: CHLORPHEN-HYDROcod 8-10mg/5ml 5 ML ORAL.SYRG PO SCH (07:34)
[2016-07-12] MEDS: INSULIN LISPRO (humaLOG) 300 UNIT/3 ML VIAL SQ SCH ×3 (07:40→17:28)
[2016-07-12 07:43] LABS: Glucose,Whole Blood 84 mg/dL (75-99)
[2016-07-12 08:02] LABS: Basophils % (A) 0 %; CH 29.9; CHCM 32.6; Eosinophils % (A) 0 %; HCT 34.8 % (39.0-53.0); HDW 2.72; HGB 11.6 gm/dL (13.0-17.5); Luc # (Auto) 0.31; Luc % (Auto) 2; Lymphocytes # (A) 1.7 k/uL (1.0-4.8); Lymphocytes % (A) 8 %; MCH 30.7 pg (25.0-35.0); MCHC 33.4 g/dL (31.0-37.0); Mean Platelet Volume 7.3; Monocytes # (A) 1.1 k/uL (0-1.0); Monocytes % (A) 5 %; Neutrophils # (A) 17.9 k/uL (1.3-7.7); Neutrophils % (A) 85 %; RBC 3.78 m/uL (4.30-5.90)
[2016-07-12 08:15] LABS: Anion Gap 15 mmol/L; Blood Urea Nitrogen 32 mg/dL (9-20); Calcium 9.7 mg/dL (8.4-10.2); Carbon Dioxide 23 mmol/L (22-30); Chloride 104 mmol/L (98-107); Glucose 91 mg/dL (74-99); Non-African American GFR(MDRD) >60 (>60 ml/min/1.73 sqM); Potassium 5.1 mmol/L (3.5-5.1); Sodium 142 mmol/L (137-145)
[2016-07-12 08:27] VITALS: RESP 20
[2016-07-12] MEDS: FORMOTEROL FUMARATE 20 MCG/2 ML NEBU INHALATION SCH (08:54)
[2016-07-12] MEDS: BUDESONIDE 0.5 MG/2 ML NEBU INHALATION SCH (08:54)
[2016-07-12] MEDS: IPRATROPIUM-ALBUTEROL 3 ML NEB INHALATION SCH ×3 (08:54→16:16)
[2016-07-12] MEDS ORDERED: predniSONE 20 MG TAB PO SCH (09:00)
--- NOTE | 2016-07-12 09:22 | PN ---
DATE OF SERVICE: 07/11/2016 This is a 60-year-old gentleman who was admitted with COPD acute exacerbation. He is being closely monitored. Patient also has history of recently diagnosed lung cancer. Patient is feeling slightly better now. No chest pain, no palpitation, no fever. On exam, alert and oriented x3. Pulse is 85, blood pressure 120/56, respirations 18, temperature 97.1, pulse ox 91% on room air. HEENT: Conjunctivae normal. NECK: No jugular venous distension. CARDIOVASCULAR SYSTEM: S1, S2, muffled. RESPIRATORY: Breath sounds diminished at the bases, bilateral scattered rhonchi, no crackles. Abdomen is soft, nontender. EXTREMITIES: Legs no edema, nos welling. NERVOUS SYSTEM: No focal deficits. LABS: WBC is 19.2, hemoglobin is 11.9. ASSESSMENT: 1. Shortness of breath with possible chronic obstructive pulmonary disease acute exacerbation, with acute tracheobronchitis and severe cough, improving. 2. Recently diagnosed small cell lung cancer with extensive metastasis, status post radiation and chemotherapy. 3. Mediastinal lymphadenopathy. 4. Mild leukopenia. 5. Anemia, normocytic, possibly secondary to malignancy. 6. Left lower quadrant abdominal pain secondary to cough, improving. 7. Obesity, body mass index of 36.6. 8. History of nicotine dependence. 9. Hypertension. 10. Hyperlipidemia. 11. Diabetes mellitus type 2. 12. Nephrolithiasis. 13. History of degenerative joint disease. 14. Remote history of Ethyl alcohol. 15. NO CODE. NO CARDIOPULMONARY RESUSCITATION, NO VENTILATOR. RECOMMENDATION: Recommend to continue with current medication, continue with the monitoring and symptomatic treatment. Continue with the bronchodilators. Continue with the tapering steroids. Repeat labs. Otherwise, arrange bronchodilators at home. Guarded prognosis. Further recommendations to follow.
[2016-07-12 11:53] LABS: Glucose,Whole Blood 99 mg/dL (75-99)
--- NOTE | 2016-07-12 14:00 | P.PN ---
Subjective Principal diagnosis: AECOPD Patient seen and examined. Patient states his breathing is much better. He is able to walk around without getting short of breath. He still has occasional cough. He did receive a nebulizer to take home. He is planning to go home today. Objective - Vital Signs Vital signs: Vital Signs Temp 97.4 F L 07/12/16 07:00 Pulse 92 07/12/16 12:52 Resp 20 07/12/16 07:00 BP 125/72 07/12/16 07:00 Pulse Ox 100 07/12/16 07:00 Intake & Output 07/11/16 07/12/16 07/12/16 18:59 06:59 18:59 Intake Total 160 100 Balance 160 100 Intake: IV 160 100 Levofloxacin 500Mg-D5w 100 Pmx 500 mg In Dextrose/ Water 1 100ml.bag @ 100 mls/hr IVPB Q24H [facility] Rx#: [id number] Sodium Chloride 0.9% 1, 160 000 ml @ 20 mls/hr IV . Q24H [facility] Rx#:[id number] Other: Voiding Method Urinal Urinal Urinal # Voids 1 - Exam Gen.: Patient is alert and oriented 3, no acute distress Cardiovascular: Regular rate and rhythm, S1/S2 Lungs: Diminished breath sounds bilaterally no wheezes rales or rhonchi Abdomen: Soft nontender nondistended positive bowel sounds Extremities: No edema - Labs CBC & Chem 7: 07/12/16 07:22 07/12/16 07:22 Labs: Abnormal Lab Results - Last 24 Hours (Table) 07/11/16 07/12/16 07/12/16 Range/Units 21:19 07:22 07:22 WBC 21.0 H (3.8-10.6) k/uL RBC 3.78 L (4.30-5.90) m/uL Hgb 11.6 L (13.0-17.5) gm/dL Hct 34.8 L (39.0-53.0) % RDW 16.0 H (11.5-15.5) % Neutrophils # 17.9 H (1.3-7.7) k/uL Monocytes # 1.1 H (0-1.0) k/uL BUN 32 H (9-20) mg/dL POC Glucose (mg/dL) 121 H (75-99) mg/dL Assessment and Plan Plan: Acute hypoxic respiratory failure, resolved, now on RA Acute exacerbation of COPD, improving Tracheobronchitis Small cell lung cancer with metastases, stage IV Cough History of tobacco abuse Leukopenia Anemia Hyperglycemia Diabetes mellitus type 2 Hypertension Dyslipidemia Obesity O2 to maintain saturation greater than equal to 88% IV Solu-Medrol change to Prednisone Bronchodilators and Pulmicort/Perforomist Antibiotics: Levaquin x 7 days total Sputum culture Continue home medications Blood sugar control Continued smoking cessation Chemo per Dr. Jerez Pain control Incentive spirometry and pulmonary hygiene GI and DVT prophylaxis Ok to DC from pulmonary standpoint. Follow up 1 week. Home with Duonebs, Symbicort/Advair, Prednisone taper.
[2016-07-12 15:54] VITALS: BP 124/71; TEMP 97.2
[2016-07-12 16:31] VITALS: PULSE 88
[2016-07-12 17:20] LABS: Glucose,Whole Blood 101 mg/dL (75-99)
[2016-07-12] MEDS ORDERED: LEVOFLOXACIN 500 MG TAB PO SCH (21:00)
--- NOTE | 2016-07-13 14:57 | DS ---
DATE OF ADMISSION: 07/09/2016 DATE OF DISCHARGE: 07/12/2016 FINAL DIAGNOSES: 1. Chronic obstructive pulmonary disease acute exacerbation with acute purulent tracheobronchitis, improved. 2. Recently diagnosed small cell lung cancer with extensive mental status post radiation chemotherapy. 3. Mediastinal lymphadenopathy. 4. Mild leukopenia. 5. Anemia, normocytic, possibly secondary to malignancy. 6. Left lower quadrant abdominal pain secondary to cough, improving. 7. Obesity, body mass index of 36.6. 8. History of nicotine dependence. 9. Hypertension. 10. Hyperlipidemia. 11. History of diabetes type 2. 12. Nephrolithiasis. 13. Degenerative joint disease. 14. Remote history of ETOH. 15. NO CODE, NO CPR, NO VENT. DISCHARGE DISPOSITION: The patient will be discharged in stable condition with guarded prognosis. HISTORY OF PRESENT ILLNESS: This 60-year-old gentleman with a past medical history of multiple medical problems as mentioned earlier including COPD acute exacerbation, shortness of breath, patient was treated with bronchodilators and steroids, antibiotics. Improved significantly. On exam, vital signs stable. CARDIOVASCULAR: S1, S2 muffled. Respiratory: Abdomen soft, nontender. Dr. Franco from pulmonary as well as Dr. Jerez saw the patient. DISCHARGE ADVICE AND MEDICATIONS: 1. Diet is cardiac. 2. Activity limited until follow-up. 3. Follow-up with Dr. Klein 2 to 3 days. 4. Follow up with Dr. Franco in two weeks. 5. Follow-up with Dr. Jerez as advised. 6. Xanax 1 mg q.8 p.r.n. 7. Lipitor 20 mg q.h.s. 8. Symbicort 160/4.5 2 puffs b.i.d. 9. Tussionex 5 mL b.i.d. p.r.n. 10. [place] for 7.5 q.6 p.r.n. 11. Albuterol Atrovent updrafts q.i.d. and p.r.n. 12. Levaquin 500 mg q.h.s. 13. Cozaar 100 mg p.o. daily. 14. Naprosyn 1 tablet p.o. b.i.d. 15. Norvasc 10 mg p.o. daily. 16. Glucotrol 5 mg a.c. b.i.d. 17. Prednisone 40 mg daily for 3 days, 30 for 3 days, 20 for 3 days, 10 for 3 days and discontinue. Once again, the patient will be discharged in stable condition with guarded prognosis. MTDD
== END 2016-07-12 17:45 | disposition home or self-care (01) ==
LOC: EC 14:13 → 5MS5E 16:41 → INTOOBSV 16:41 → 5ONC 16:58
PROVIDERS: ADMIT Hospitalist; ATTEND Hospitalist
DX: J44.1 Chronic obstructive pulmonary disease with (acute) exacerbation (principal); J96.01 Acute respiratory failure with hypoxia; J44.0 Chronic obstructive pulmonary disease with (acute) lower respiratory infection; J20.9 Acute bronchitis, unspecified; C34.90 Malignant neoplasm of unspecified part of unspecified bronchus or lung; C79.31 Secondary malignant neoplasm of brain; C78.7 Secondary malignant neoplasm of liver and intrahepatic bile duct; R59.0 Localized enlarged lymph nodes; D72.819 Decreased white blood cell count, unspecified; D64.9 Anemia, unspecified; R10.32 Left lower quadrant pain; E66.9 Obesity, unspecified; Z68.36 Body mass index [BMI] 36.0-36.9, adult; F17.210 Nicotine dependence, cigarettes, uncomplicated; I10 Essential (primary) hypertension; E11.65 Type 2 diabetes mellitus with hyperglycemia; N20.0 Calculus of kidney; K57.92 Diverticulitis of intestine, part unspecified, without perforation or abscess without bleeding; E78.5 Hyperlipidemia, unspecified; R41.3 Other amnesia; M19.90 Unspecified osteoarthritis, unspecified site; Z90.5 Acquired absence of kidney; Z79.899 Other long term (current) drug therapy; Z79.84 Long term (current) use of oral hypoglycemic drugs
CPT/HCPCS: 99291; 96365; 96375; 36415; 94640 ×8; 94760; 93005; 83880; 80053; 80048 ×3; 83036; 82550; 82553; 83735; 84484; 85025 ×4; 85610; 85730; 71010; 71020; G0378 ×4; J1644 ×4; J2930 ×3; J1956 ×3; J1170 ×3; J3475; J7512; 96366; 96367; 96372; 96376

== ENCOUNTER 2016-07-26 12:03 | Inpatient (IN) | payer OTHER ==
[2016-07-26] MEDS ORDERED: RX INFO: IV CONTRAST WAS GIVEN 1 EACH MISC MISCELLANE PRN (12:32)
--- NOTE | 2016-07-26 12:34 | ED ---
SOB HPI - General Chief Complaint: Shortness of Breath Stated Complaint: SOB Time Seen by Provider: 07/26/16 12:27 Source: patient Mode of arrival: wheelchair Limitations: no limitations - History of Present Illness Initial Comments: Patient complains of shortness of breath. He has tightness in the chest as well. His symptoms have been getting worse for several days. He has a history of lung cancer. He has no belly or back pain. He has no nausea or vomiting. He has no diaphoresis. He was not doing anything when the symptoms began. The symptoms are worse when walking around. He has no neck pain or stiffness. He has no change in vision or hearing. He denies any recent travel. He is tolerating oral intake. - Related Data Home Medications Medication Instructions Recorded Confirmed Losartan Potassium [Cozaar] 100 mg PO DAILY 09/08/15 07/26/16 amLODIPine BESYLATE [Norvasc] 10 mg PO DAILY 09/08/15 07/26/16 glipiZIDE [Glucotrol] 5 mg PO AC-BID 09/08/15 07/26/16 ALPRAZolam [Xanax] 1 mg PO Q8H PRN 07/09/16 07/26/16 Atorvastatin [Lipitor] 20 mg PO HS 07/09/16 07/26/16 HYDROcodone/APAP 7.5-325MG [[place] 1 tab PO Q6HR PRN 07/09/16 07/26/16 7.5-325] Naproxen Sodium/P-Ephed HCl [Aleve 1 tab PO Q12H PRN 07/09/16 07/26/16 Cold and Sinus Caplet] Budesonide-Formot 160-4.5 Mcg 2 puff INHALATION RT-BID 07/26/16 07/26/16 [Symbicort 160-4.5 Mcg Inhaler] Ipratropium-Albuterol Nebulize 3 ml INHALATION RT-QID 07/26/16 07/26/16 [Duoneb 0.5 mg-3 mg/3 ml Soln] predniSONE See Taper PO DIRECTED 07/26/16 07/26/16 Previous Rx's Medication Instructions Recorded CHLORPHEN-HYDROcod 8-10mg/5ml 5 ml PO Q12HR #60 ml 07/12/16 [Tussionex] Allergies Allergy/AdvReac Type Severity Reaction Status Date / Time Penicillins AdvReac SEE COMMENT Verified 07/26/16 12:14 Review of Systems ROS Statement: Those systems with pertinent positive or pertinent negative responses have been documented in the HPI. ROS Other: All systems not noted in ROS Statement are negative. Past Medical History Past Medical History: Cancer, Diabetes Mellitus, Hyperlipidemia, Hypertension Additional Past Medical History / Comment(s): diverticulitis, arthritis, kidney stones 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 and liver ca brain mets masses in abdomen that have been causing pain 2 primary tumors in abdomen, tumor pushes on heart, radiation 3 weeks ago chemo 2 weeks ago short term memory loss since radiation History of Any Multi-Drug Resistant Organisms: None Reported Past Surgical History: Orthopedic Surgery Additional Past Surgical History / Comment(s): KIDNEY STONE REMOVED, ORIF Lt tibia, left knee arthroscopy x 2, rey cataracts, Past Anesthesia/Blood Transfusion Reactions: Postoperative Nausea & Vomiting ( PONV) Past Psychological History: No Psychological Hx Reported Smoking Status: Former smoker Past Alcohol Use History: None Reported, Heavy Additional Past Alcohol Use History / Comment(s): quit november 2016 Past Drug Use History: None Reported - Past Family History Mother Family Medical History: Cancer Father Additional Family Medical History / Comment(s): ALS General Exam Limitations: no limitations General appearance: alert, in no apparent distress Head exam: Present: atraumatic, normocephalic, normal inspection Eye exam: Present: normal appearance, PERRL, EOMI. Absent: scleral icterus, conjunctival injection, periorbital swelling ENT exam: Present: normal exam, mucous membranes moist Neck exam: Present: normal inspection. Absent: tenderness, meningismus, lymphadenopathy Respiratory exam: Present: normal lung sounds bilaterally. Absent: respiratory distress, wheezes, rales, rhonchi, stridor Cardiovascular Exam: Present: regular rate, normal rhythm, normal heart sounds. Absent: systolic murmur, diastolic murmur, rubs, gallop, clicks GI/Abdominal exam: Present: soft, normal bowel sounds. Absent: distended, tenderness, guarding, rebound, rigid Extremities exam: Present: normal inspection, full ROM, normal capillary refill. Absent: tenderness, pedal edema, joint swelling, calf tenderness Back exam: Present: normal inspection Neurological exam: Present: alert, oriented X3, CN II-XII intact Psychiatric exam: Present: normal affect, normal mood Skin exam: Present: warm, dry, intact, normal color. Absent: rash Course Vital Signs 07/26/16 07/26/16 12:09 13:21 Temperature 98.4 F Pulse Rate 97 90 Respiratory 22 24 Rate Blood Pressure 84/58 98/61 O2 Sat by Pulse 96 99 Oximetry Medical Decision Making - Medical Decision Making Patient complains of shortness of breath. His x-rays concerning for multiple areas of infiltrate. I ordered cultures and antibiotics. He will be admitted to the hospital. - Lab Data Result diagrams: 07/26/16 12:25 07/26/16 12:25 Lab Results 07/26/16 07/26/16 07/26/16 Range/Units 12:25 12:25 12:25 WBC 11.6 H (3.8-10.6) k/uL RBC 4.17 L (4.30-5.90) m/uL Hgb 12.5 L (13.0-17.5) gm/dL Hct 38.1 L (39.0-53.0) % MCV 91.3 (80.0-100.0) fL MCH 30.0 (25.0-35.0) pg MCHC 32.9 (31.0-37.0) g/dL RDW 16.3 H (11.5-15.5) % Plt Count 147 L (150-450) k/uL Neutrophils % 83 % Lymphocytes % 7 % Monocytes % 6 % Eosinophils % 2 % Basophils % 0 % Neutrophils # 9.6 H (1.3-7.7) k/uL Lymphocytes # 0.8 L (1.0-4.8) k/uL Monocytes # 0.7 (0-1.0) k/uL Eosinophils # 0.2 (0-0.7) k/uL Basophils # 0.0 (0-0.2) k/uL Anisocytosis Slight PT (9.0-12.0) sec INR (<1.1) APTT (22.0-30.0) sec Sodium 137 (137-145) mmol/L Potassium 4.6 (3.5-5.1) mmol/L Chloride 102 (98-107) mmol/L Carbon Dioxide 22 (22-30) mmol/L Anion Gap 13 mmol/L BUN 21 H (9-20) mg/dL Creatinine 1.20 (0.66-1.25) mg/dL Est GFR (MDRD) Af Amer >60 (>60 ml/min/1.73 sqM) Est GFR (MDRD) Non-Af >60 (>60 ml/min/1.73 sqM) Glucose 101 H (74-99) mg/dL Calcium 9.3 (8.4-10.2) mg/dL Total Bilirubin 1.2 (0.2-1.3) mg/dL AST 64 H (17-59) U/L ALT 116 H (21-72) U/L Alkaline Phosphatase 243 H (38-126) U/L Troponin I (0.000-0.034) ng/mL NT-Pro-B Natriuret Pep 52 pg/mL Total Protein 6.7 (6.3-8.2) g/dL Albumin 3.8 (3.5-5.0) g/dL 07/26/16 07/26/16 Range/Units 12:25 12:25 WBC (3.8-10.6) k/uL RBC (4.30-5.90) m/uL Hgb (13.0-17.5) gm/dL Hct (39.0-53.0) % MCV (80.0-100.0) fL MCH (25.0-35.0) pg MCHC (31.0-37.0) g/dL RDW (11.5-15.5) % Plt Count (150-450) k/uL Neutrophils % % Lymphocytes % % Monocytes % % Eosinophils % % Basophils % % Neutrophils # (1.3-7.7) k/uL Lymphocytes # (1.0-4.8) k/uL Monocytes # (0-1.0) k/uL Eosinophils # (0-0.7) k/uL Basophils # (0-0.2) k/uL Anisocytosis PT 10.8 (9.0-12.0) sec INR 1.1 (<1.1) APTT 21.5 L (22.0-30.0) sec Sodium (137-145) mmol/L Potassium (3.5-5.1) mmol/L Chloride (98-107) mmol/L Carbon Dioxide (22-30) mmol/L Anion Gap mmol/L BUN (9-20) mg/dL Creatinine (0.66-1.25) mg/dL Est GFR (MDRD) Af Amer (>60 ml/min/1.73 sqM) Est GFR (MDRD) Non-Af (>60 ml/min/1.73 sqM) Glucose (74-99) mg/dL Calcium (8.4-10.2) mg/dL Total Bilirubin (0.2-1.3) mg/dL AST (17-59) U/L ALT (21-72) U/L Alkaline Phosphatase (38-126) U/L Troponin I <0.012 (0.000-0.034) ng/mL NT-Pro-B Natriuret Pep pg/mL Total Protein (6.3-8.2) g/dL Albumin (3.5-5.0) g/dL 07/26/16 12:33 Twelve-lead EKG obtained, interpreted by me showing ventricular rate 98 bpm, normal NM interval and QRS complexes, no ST elevation or depression, interpreted by me as normal sinus rhythm. Disposition Clinical Impression: Lung cancer, Pneumonia Disposition: ADMITTED IP TO THIS HOSP Condition: Serious Time of Disposition: 14:44
[2016-07-26 13:03] LABS: Anisocytosis Slight; Basophils % (A) 0 %; CH 30.2; CHCM 33.2; Eosinophils # (A) 0.2 k/uL (0-0.7); Eosinophils % (A) 2 %; HCT 38.1 % (39.0-53.0); HDW 2.36; HGB 12.5 gm/dL (13.0-17.5); Luc # (Auto) 0.11; Luc % (Auto) 1; Lymphocytes # (A) 0.8 k/uL (1.0-4.8); Lymphocytes % (A) 7 %; MCHC 32.9 g/dL (31.0-37.0); MCV 91.3 fL (80.0-100.0); Mean Platelet Volume 7.3; Monocytes # (A) 0.7 k/uL (0-1.0); Monocytes % (A) 6 %; Neutrophils # (A) 9.6 k/uL (1.3-7.7); Neutrophils % (A) 83 %; RBC 4.17 m/uL (4.30-5.90); RDW 16.3 % (11.5-15.5); WBC 11.6 k/uL (3.8-10.6); WBC (Perox) 11.43
[2016-07-26 13:17] LABS: ALT 116 U/L (21-72); AST 64 U/L (17-59); Alkaline Phosphatase 243 U/L (38-126); Anion Gap 13 mmol/L; Blood Urea Nitrogen 21 mg/dL (9-20); Calcium 9.3 mg/dL (8.4-10.2); Carbon Dioxide 22 mmol/L (22-30); Chloride 102 mmol/L (98-107); Glucose 101 mg/dL (74-99); INR 1.1 (<1.1); Non-African American GFR(MDRD) >60 (>60 ml/min/1.73 sqM); Partial Thromboplastin Time 21.5 sec (22.0-30.0); Potassium 4.6 mmol/L (3.5-5.1); Prothrombin Time 10.8 sec (9.0-12.0); Sodium 137 mmol/L (137-145); Total Bilirubin 1.2 mg/dL (0.2-1.3); Total Protein 6.7 g/dL (6.3-8.2)
--- NOTE | 2016-07-26 14:36 | CT ---
EXAMINATION TYPE: CT angio chest DATE OF EXAM: 07/26/2016 2:24 PM COMPARISON: 11/25/2015 HISTORY: Patient complains of chest pain and difficulty breathing. CT DLP: 510.7 mGycm CONTRAST: CT chest with contrast and 3D reconstruction with MIP imaging is performed with IV Contrast, patient injected with 100 mL of Omnipaque 350. Contrast-enhanced CT of the chest was performed through the course of the pulmonary arteries with maya g and mediastinal window settings submitted. 3D reconstruction with MIP imaging was also performed. PULMONARY ARTERIES: The pulmonary arteries and their major tributaries are patent. I do not see hardeep dence for sizable filling defect to suggest pulmonary embolic process. LUNGS: Scattered groundglass infiltrates throughout both lung guillen may reflect acute inflammatory p rocess. No evidence for atelectasis. No pulmonary nodule or mass is detected. No pleural effusion. MEDIASTINUM: Thoracic aorta is of normal caliber . The heart is mildly enlarged. Large right paratra cheal soft tissue mass is again seen and is slightly larger in size and currently measures 10.8 x 8.8 x 7.2 cm versus 8.9 x 8.0 x 7.9 cm. Again noted is tracheal deviation from right to left and mass ef fect upon the superior vena cava which continues to be patent. Right supraclavicular adenopathy is no kassy as well. There is also right epicardial adenopathy. Small pericardial effusion is unchanged. Uppe r abdominal adenopathy again noted. HILAR STRUCTURES: No evidence for mass. No hilar lymph nodes greater than 1 cm. UPPER ABDOMEN: No significant abnormality is seen. IMPRESSION: 1. No evidence for Pulmonary embolism at this time.
[2016-07-26] MEDS ORDERED: CEFEPIME 1 GM in SODIUM CHLORIDE 0.9% 50 ML IVPB STA (14:43)
[2016-07-26] MEDS ORDERED: VANCOMYCIN 1,750 MG in SODIUM CHLORIDE 0.9% 250 ML IVPB STA (14:43)
[2016-07-26] MEDS ORDERED: ONDANSETRON 4 MG/2 ML VIAL IVP PRN (14:45)
[2016-07-26] MEDS ORDERED: MORPHINE SULFATE 4 MG/ML SYRINGE IV PRN (14:45)
[2016-07-26] MEDS ORDERED: NALOXONE 0.4 MG/ML 1 ML VIAL IV PRN (14:45)
[2016-07-26] MEDS ORDERED: LORazepam 0.5 MG TAB PO PRN (14:45)
[2016-07-26] MEDS ORDERED: methylPREDNISolone SOD SUCCI 125 MG/2 ML VIAL IV STA (16:05)
[2016-07-26] MEDS ORDERED: LEVALBUTEROL NEB 1.25 MG/3 ML AMP INHALATION PRN (16:07)
[2016-07-26] MEDS ORDERED: IPRATROPIUM 0.5 MG/2.5 ML NEBU INHALATION PRN ×2 (16:10)
[2016-07-26 16:22] LABS: Glucose,Whole Blood 85 mg/dL (75-99)
[2016-07-26 16:37] LABS: ABG PH 7.59 (7.35-7.45)
[2016-07-26 16:38] LABS: ABG Base Excess -3.9 mmol/L; ABG HCO3 18 mmol/L (21-25); ABG Oxygen Saturation 98.3 % (94-97); ABG PCO2 19 mmHg (35-45); ABG PO2 88 mmHg (83-108); ABG TCO2 18 mmol/L (19-24)
[2016-07-26] MEDS ORDERED: ALPRAZolam 0.5 MG TAB PO PRN (16:40)
[2016-07-26] MEDS ORDERED: HYDROcodone/APAP 7.5-325MG 1 EACH TAB PO PRN (16:40)
[2016-07-26] MEDS ORDERED: P EPHED HCL PO PRN (16:40)
[2016-07-26] MEDS ORDERED: NAPROXEN SODIUM PO PRN (16:40)
[2016-07-26] MEDS ORDERED: IV VANCOMYCIN PER PHARMACY 1 EACH MISC MISCELLANE PRN (16:41)
[2016-07-26] MEDS ORDERED: TEMAZEPAM 15 MG CAP PO PRN (16:43)
[2016-07-26] MEDS ORDERED: ALPRAZolam 0.25 MG TAB PO PRN (16:43)
[2016-07-26] MEDS ORDERED: NAPROXEN 250 MG TAB PO PRN (16:47)
[2016-07-26] MEDS ORDERED: PSEUDOEPHEDRINE 12HR 120 MG TABLET.ER PO PRN (16:48)
[2016-07-26] MEDS: HYDROmorphone 1 MG/ML 1 ML SYRINGE IVP PRN (17:44)
[2016-07-26] MEDS: INSULIN LISPRO (humaLOG) 300 UNIT/3 ML VIAL SQ SCH ×2 (17:50→21:17)
[2016-07-26] MEDS: methylPREDNISolone SOD SUCCI 125 MG/2 ML VIAL IV SCH ×2 (17:50→23:48)
[2016-07-26 18:32] LABS: Appearance,Urine Clear (Clear); Bilirubin,Urine Negative (Negative); Glucose,Urine (UA) Negative (Negative); Ketones,Urine Trace (Negative); Leukocyte Esterase,Urine Negative (Negative); Nitrite,Urine Negative (Negative); PH, Urine 7.5 (5.0-8.0); Protein,Urine Trace (Negative); UA Billing (MACRO vs. MICRO) CHEM; Urobilinogen,Urine <2.0 mg/dL (<2.0)
[2016-07-26 18:46] LABS: Specific Gravity,Urine 1.046 (1.001-1.035)
[2016-07-26 19:54] LABS: Glucose,Whole Blood 141 mg/dL (75-99)
[2016-07-26 20:08] LABS: Hemoglobin A1C 6.4 % (4.2-6.1)
[2016-07-26] MEDS: BUDESONIDE 0.5 MG/2 ML NEBU INHALATION SCH (20:22)
[2016-07-26] MEDS: LEVALBUTEROL NEB 1.25 MG/3 ML AMP INHALATION SCH (20:22)
[2016-07-26] MEDS: FORMOTEROL FUMARATE 20 MCG/2 ML NEBU INHALATION SCH (20:22)
[2016-07-26] MEDS: CHLORPHEN-HYDROcod 8-10mg/5ml 5 ML ORAL.SYRG PO SCH (21:15)
[2016-07-26] MEDS: ATORVASTATIN 20 MG TAB PO SCH (21:16)
[2016-07-26] MEDS: FAMOTIDINE 20 MG TAB PO SCH (21:17)
--- NOTE | 2016-07-26 21:51 | HP ---
DATE OF ADMISSION: 07/26/2016 CHIEF COMPLAINT: Shortness of breath and chest pain. HISTORY OF PRESENT ILLNESS: This 60-year-old gentleman with a past medical history of multiple medical problems including recently diagnosed small cell lung cancer, extensive and as well as radiation and chemotherapy being followed by Dr. Klein in the outpatient setting was recently admitted with multiple complex medical issues. The patient improved significantly. The patient went home and currently the patient complaining of increased shortness of breath and cough and chest pain associated with increasing respirations. The patient came to [facility] and was admitted for further evaluation and treatment. CAT scan did not show any evidence of pulmonary embolism, diffuse inflammatory with pneumonia is considered. The patient admitted to the hospital for further evaluation and treatment. There is no history of fever, rigors or chills. No history of headache, loss of consciousness or seizures. PAST MEDICAL HISTORY: 1. Non-small cell lung cancer. 2. History of diabetes. 3. Hypertension. 4. Hyperlipidemia. 5. Obesity. 6. History of diverticulitis. 7. History of lung cancer. 8. History of orthopedic surgery. 9. History of kidney stone. Medications prior to admission include home medications are: 1. Prednisone taper as before. 2. Glucotrol 5 mg a.c. b.i.d. 3. Norvasc 10 mg p.o. daily. 4. Aleve one b.i.d. p.r.n. 5. Cozaar 100 mg daily. 6. DuoNeb q.i.d. 7. [place] 7.5 mg q.6h p.r.n. 8. Tussionex 5 mg b.i.d. 9. Symbicort 160/4.5 2 puffs b.i.d. 10. Lipitor 20 mg q.h.s. 11. Xanax 1 mg q.8 p.r.n. ALLERGIES: PENICILLIN. FAMILY HISTORY: History of cancer, ALS in the family. SOCIAL HISTORY: Previous history of smoking. No history of alcohol intake. REVIEW OF SYSTEMS: ENT: No diminished vision. No diminished hearing. CARDIOVASCULAR: As mentioned earlier. RESPIRATORY: As mentioned earlier. GI: No nausea or vomiting. : No dysuria. Nervous system: No numbness or weakness. ALLERGY/IMMUNOLOGY: No asthma or hayfever. MUSCULOSKELETAL: As mentioned earlier. HEMATOLOGY/ONCOLOGY: No history of anemia. ENDOCRINE: As mentioned earlier. CONSTITUTIONAL: As mentioned. HEMATOLOGY/ONCOLOGY: No history of anemia. ENDOCRINE: As mentioned earlier. CONSTITUTIONAL: As mentioned earlier. DERMATOLOGY: negative. RHEUMATOLOGY: Negative. PSYCHIATRY: As mentioned earlier. PHYSICAL EXAMINATION: Alert and oriented times three. Pulse 100, blood pressure 109/78, respiration 18, temperature 96.9, pulse ox 100% on 3 liters. HEENT: Conjunctivae normal. Oral mucosa moist. NECK: No jugular venous distention. No carotid bruits. No lymph node enlargement. CARDIOVASCULAR: S1, S2 muffled. No S3, no S4. RESPIRATORY: Breath sounds diminished at the bases. Breathing efforts increased. Bilateral scattered rhonchi and expiratory wheezing and crackles also present. Abdomen is soft, obese, nontender. No mass palpable. Legs no edema. No swelling. Nervous system: Higher function as mentioned earlier. Moves all four limbs. No focal deficits. LYMPHATICS: No lymph nodes palpable in the neck, axillae or groin. SKIN: No ulcer, rash or bleeding. LABS: WBC 11.6, hemoglobin is 12.5, ABGs pH 7.59, pO2 88, plasma lactic acid is 2.5. AST is 64, ALT is 116. Chest x-ray noted. ASSESSMENT: 1. Chronic obstructive pulmonary disease acute exacerbation with acute bilateral pneumonia, possibly gram-negative with acute sepsis. 2. Acute respiratory alkalosis. 3. Increased WBC. 4. Anemia, normocytic. 5. Thrombocytopenia. 6. Obesity with body mass index . 7. History of recently diagnosed small cell lung cancer with extensive mental status and status post radiation. 8. Mediastinal lymphadenopathy. 9. History of nicotine dependence. 10. Hypertension. 11. Hyperlipidemia. 12. Diabetes mellitus type 2 history. 14. History of degenerative joint disease. 15. ETOH. 16. Increased plasma lactic acid. 17. Increased AST, ALT. 18. FULL CODE. RECOMMENDATIONS AND DISCUSSION: In this 60-year-old gentleman who presented with multiple complex medical issues, we will monitor the patient closely. Continue with current condition medications, continue symptomatic treatment. We will initiate broad-spectrum IV antibiotics. Continue the bronchodilators. Pulmonary consultation. IV steroids. Symptomatic treatment for pain. Prognosis guarded because of multiple complex medical issues. Further recommendations to follow. A copy of dictation being forwarded to Dr. Klein who is the primary physician. [facility]
[2016-07-26] MEDS: CEFEPIME 2 GM in SODIUM CHLORIDE 0.9% 50 ML IVPB SCH (23:48)
[2016-07-27] MEDS: VANCOMYCIN 1,750 MG in SODIUM CHLORIDE 0.9% 250 ML IVPB SCH ×3 (05:11→22:58)
[2016-07-27] MEDS: methylPREDNISolone SOD SUCCI 125 MG/2 ML VIAL IV SCH ×3 (05:12→17:30)
[2016-07-27] MEDS: HYDROmorphone 1 MG/ML 1 ML SYRINGE IVP PRN (05:26)
[2016-07-27] MEDS: BUDESONIDE 0.5 MG/2 ML NEBU INHALATION SCH ×2 (07:17→20:59)
[2016-07-27] MEDS: FORMOTEROL FUMARATE 20 MCG/2 ML NEBU INHALATION SCH ×2 (07:17→20:59)
[2016-07-27] MEDS: LEVALBUTEROL NEB 1.25 MG/3 ML AMP INHALATION SCH ×3 (07:17→20:59)
[2016-07-27 07:37] LABS: Basophils % (A) 0 %; CH 30.1; CHCM 32.8; Eosinophils % (A) 0 %; HDW 2.29; HGB 11.6 gm/dL (13.0-17.5); Luc # (Auto) 0.02; Luc % (Auto) 0; Lymphocytes # (A) 0.5 k/uL (1.0-4.8); Lymphocytes % (A) 6 %; MCH 29.7 pg (25.0-35.0); MCHC 32.2 g/dL (31.0-37.0); MCV 92.2 fL (80.0-100.0); Mean Platelet Volume 7.1; Monocytes # (A) 0.2 k/uL (0-1.0); Monocytes % (A) 2 %; Neutrophils # (A) 7.8 k/uL (1.3-7.7); Neutrophils % (A) 92 %; RDW 15.9 % (11.5-15.5); WBC 8.4 k/uL (3.8-10.6); WBC (Perox) 9.12
[2016-07-27 08:03] LABS: Glucose,Whole Blood 168 mg/dL (75-99)
[2016-07-27 08:05] LABS: ALT 107 U/L (21-72); AST 58 U/L (17-59); Alkaline Phosphatase 231 U/L (38-126); Anion Gap 12 mmol/L; Blood Urea Nitrogen 24 mg/dL (9-20); Calcium 9.2 mg/dL (8.4-10.2); Carbon Dioxide 21 mmol/L (22-30); Chloride 105 mmol/L (98-107); Glucose 176 mg/dL (74-99); Non-African American GFR(MDRD) >60 (>60 ml/min/1.73 sqM); Sodium 138 mmol/L (137-145); Total Bilirubin 0.8 mg/dL (0.2-1.3); Total Protein 6.5 g/dL (6.3-8.2)
[2016-07-27] MEDS: INSULIN LISPRO (humaLOG) 300 UNIT/3 ML VIAL SQ SCH ×4 (09:09→21:48)
[2016-07-27] MEDS: FAMOTIDINE 20 MG TAB PO SCH ×2 (09:10→22:58)
[2016-07-27] MEDS: amLODIPine 10 MG TAB PO SCH (09:10)
[2016-07-27] MEDS: LOSARTAN 50 MG TAB PO SCH (09:10)
[2016-07-27] MEDS: CHLORPHEN-HYDROcod 8-10mg/5ml 5 ML ORAL.SYRG PO SCH ×2 (09:12→20:23)
[2016-07-27] MEDS: CEFEPIME 2 GM in SODIUM CHLORIDE 0.9% 50 ML IVPB SCH ×2 (09:12→15:46)
--- NOTE | 2016-07-27 09:19 | XR ---
EXAMINATION TYPE: XR chest 1V portable DATE OF EXAM: 07/27/2016 8:51 AM HISTORY: Difficulty breathing. REFERENCE: Previous study dated 07/10/2016. FINDINGS: The heart is enlarged. There is a stable right paratracheal mass. This is compressing and d eviating the trachea towards the left. There is overinflation of the lungs. There is some volume loss in the left lung. IMPRESSION: 1. STABLE RIGHT-SIDED MEDIASTINAL MASS. 2. CARDIOMEGALY. 3. INTERVAL DEVELOPMENT OF VOLUME LOSS AT THE LEFT LUNG BASE.
[2016-07-27 12:00] LABS: Glucose,Whole Blood 214 mg/dL (75-99)
--- NOTE | 2016-07-27 14:17 | CONS ---
DATE OF CONSULTATION: Mr. Reynaldo Menchaca is a 60-year-old male who was seen, evaluated, examined as per request of Dr. Everett who is the attending physician of the patient in the hospital. This patient is well known to me for diagnosis supraclavicular mass and small cell cancer diagnosed back in November 2015. In fact, I did a bronchoscopy and lung biopsy on him and consulted Dr. Pisano at that time to do a biopsy of supraclavicular lymph node. Patient recently has been seen by another renal medicine physician, Dr. Franco in my absence and advised to be admitted to the hospital. Patient has been seeing Dr. Jerez for chemotherapy. Due to problems with progressive increased shortness of breath came into the hospital and has been admitted to the hospital. He had a CT scan of the chest in the emergency department. He had been complaining of shortness of breath and cough and difficulty in breathing. Past medical history is significant for small cell lung cancer, diabetes mellitus, hypertension, dyslipidemia, morbid obesity, diverticulitis. PAST SURGICAL HISTORY: Significant for bronchoscopy and transbronchial lung biopsies, supraclavicular lymph node biopsy. Also significant for orthopedic surgery. REVIEW OF SYSTEMS: Otherwise unremarkable and noncontributory except as dictated above. The CT scan of the chest performed in the emergency room reviewed. No evidence of filling defect suggestive of PE is present; however, revealed a ground glass infiltrate bilaterally, large right paratracheal soft tissue mass is seen, which is 10 x 8 cm x 7.2 cm in size, along with tracheal deviation and mass effect on the SVC. Current medications while in the hospital include: Tylenol with Codeine, Xanax, amlodipine, Lipitor, Pulmicort, cefepime, Tussionex, Pepcid, Perforomist, Dilaudid, Humalog, Xopenex, Cozaar, Solu-Medrol, Restoril and vancomycin. FAMILY HISTORY AND SOCIAL HISTORY: Significant for smoking and nicotine use. See my prior consultation note for details. On examination, most recent vitals include blood pressure is 124/71, respiratory rate 16. Blood pressure 100/57, respiratory rate 16 to 18, heart rate 82, temperature 98, sating 94%. She is on 3 liters of oxygen. HEENT: Atraumatic, normocephalic. Pharynx is clear. Supraclavicular mass palpable. Right supraclavicular mass as dictated above. LUNGS: Bilateral coarse breath sounds present. HEART: Regular rate and rhythm. S1 and S2 audible. ABDOMEN: Soft. No rebound or rigidity. EXTREMITIES: +1 peripheral pulses. NEUROLOGICAL EXAMINATION: Awake and alert. No focal neurological deficit. IMPRESSION: 1. Patchy pneumonia. I agree with broad-spectrum antibiotics appears to be community-acquired pneumonia. 2. Small cell lung cancer 3. Hypertension, hypertensive cardiovascular disease. 4. Dyslipidemia. PLAN AND RECOMMENDATIONS: Continue broad-spectrum antibiotics. Continue supportive care. I will obtain consultation with Radiation Oncology for possible radiation treatment as well as consultation with Oncology.
[2016-07-27 14:56] VITALS: BMI 34.0
--- NOTE | 2016-07-27 16:32 | P.CONS ---
History of Present Illness - Reason for Consult Consult date: 07/27/16 Shortness of breathe- Small cell lung cancer Requesting physician: Cindy Everett - Chief Complaint I have chest pressure - History of Present Illness SITE: SMALL CELL LUNG CANCER OF RIGHT UPPER L OBE STAGE: [id number], Extensive stage Mr. Menchaca is a pleasant 60 year old male with a diagnosis of extensive stage small cell lung cancer. He was found at diagnosis to have multiple liver metastasis. Mr. Paul had been receiving carbo/PEDIATRIC REGISTERED NURSE 16 under the care of Dr. Jerez x 4 cycles, which he tolerated quite well. He was undergoing consideration for a clinical trial at [facility]. Unfortunately he was found to have brain metastasis and was therefore treated at [facility] with whole brain radiation. Mr. Paul is now being seen as an inpatient secondary to significant chest pressure making it difficult to stand for long periods of time and shorness of breathe worse on exertion. Review of Systems Constitutional: Reports anorexia, Reports fatigue, Reports weakness Eyes: denies blurred vision, denies pain Cardiovascular: Reports chest pain, Reports orthopnea, Reports shortness of breath Respiratory: Reports congestion Gastrointestinal: Denies abdominal pain, Denies diarrhea, Denies nausea, Denies vomiting Neurological: Denies numbness, Denies weakness 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, masses in abdomen that have been causing pain 2 primary tumors in abdomen, tumor pushes on heart, radiation ?5 weeks ago, chemo 07-08-16, short term memory loss since radiation History of Any Multi-Drug Resistant Organisms: None Reported Past Surgical History: Orthopedic Surgery Additional Past Surgical History / Comment(s): cystocopy and KIDNEY STONE REMOVED, ORIF Lt tibia, left knee arthroscopy x 2, rey cataracts,brochoscopy/bx , bx supraclavicular mass Past Anesthesia/Blood Transfusion Reactions: Postoperative Nausea & Vomiting ( PONV) Past Psychological History: No Psychological Hx Reported Smoking Status: Former smoker Past Alcohol Use History: None Reported, Heavy Additional Past Alcohol Use History / Comment(s): quit november 2016 Past Drug Use History: None Reported - Past Family History Mother Family Medical History: Cancer Father Additional Family Medical History / Comment(s): ALS Medications and Allergies Home Medications Medication Instructions Recorded Confirmed Type Losartan Potassium [Cozaar] 100 mg PO DAILY 09/08/15 07/26/16 History amLODIPine BESYLATE [Norvasc] 10 mg PO DAILY 09/08/15 07/26/16 History glipiZIDE [Glucotrol] 5 mg PO AC-BID 09/08/15 07/26/16 History ALPRAZolam [Xanax] 1 mg PO Q8H PRN 07/09/16 07/26/16 History Atorvastatin [Lipitor] 20 mg PO HS 07/09/16 07/26/16 History HYDROcodone/APAP 7.5-325MG [[place] 1 tab PO Q6HR PRN 07/09/16 07/26/16 History 7.5-325] Naproxen Sodium/P-Ephed HCl [Aleve 1 tab PO Q12H PRN 07/09/16 07/26/16 History Cold and Sinus Caplet] Budesonide-Formot 160-4.5 Mcg 2 puff INHALATION RT-BID 07/26/16 07/26/16 History [Symbicort 160-4.5 Mcg Inhaler] Ipratropium-Albuterol Nebulize 3 ml INHALATION RT-QID 07/26/16 07/26/16 History [Duoneb 0.5 mg-3 mg/3 ml Soln] predniSONE See Taper PO DIRECTED 07/26/16 07/26/16 History Allergies Allergy/AdvReac Type Severity Reaction Status Date / Time Penicillins AdvReac SEE COMMENT Verified 07/26/16 12:14 Physical Exam Vitals: Vital Signs Temp Pulse Pulse Resp BP Pulse Ox 07/27/16 16:08 96.6 F L 88 16 102/61 95 07/27/16 13:54 80 07/27/16 13:41 80 07/27/16 08:00 82 16 07/27/16 07:38 75 07/27/16 07:31 75 07/27/16 07:20 75 94 L 07/27/16 07:00 97.8 F 82 16 100/57 96 07/26/16 23:50 16 07/26/16 21:11 98.2 F 87 16 123/70 93 L 07/26/16 20:46 104 H 07/26/16 20:34 104 H 07/26/16 20:33 104 H 07/26/16 20:23 100 07/26/16 17:19 98 30 H 07/26/16 16:47 100 07/26/16 16:36 100 Intake and Output 07/27/16 07/27/16 07/27/16 06:59 14:59 22:59 Intake Total 420 Balance 420 Intake: Intake, IV Titration 300 Amount Cefepime 2 gm In Sodium 50 Chloride 0.9% 50 ml @ 100 mls/hr IVPB Q8HR BHUPINDER Rx# :[id number] Vancomycin 1,750 mg In 250 Sodium Chloride 0.9% 250 ml @ 125 mls/hr IVPB Q12H BHUPINDER Rx#:[id number] Oral 120 Other: # Voids 2 Weight 120 kg Patient Weight 07/28/16 06:59 Weight 120 kg - Constitutional General appearance: average body habitus - EENT Eyes: EOMI - Respiratory Respiratory: bilateral: prolonged expiration, negative: wheezing - Cardiovascular Rhythm: regular - Neurologic Neurologic: CNII-XII intact Results CBC & Chem 7: 07/27/16 07:10 07/27/16 07:10 Labs: Abnormal Lab Results - Last 24 Hours (Table) 07/26/16 07/26/16 07/26/16 Range/Units 16:25 18:13 19:53 RBC (4.30-5.90) m/uL Hgb (13.0-17.5) gm/dL Hct (39.0-53.0) % RDW (11.5-15.5) % Plt Count (150-450) k/uL Neutrophils # (1.3-7.7) k/uL Lymphocytes # (1.0-4.8) k/uL ABG pH 7.59 H (7.35-7.45) ABG pCO2 19 L* (35-45) mmHg ABG HCO3 18 L (21-25) mmol/L ABG Total CO2 18 L (19-24) mmol/L ABG O2 Saturation 98.3 H (94-97) % Carbon Dioxide (22-30) mmol/L BUN (9-20) mg/dL Glucose (74-99) mg/dL POC Glucose (mg/dL) 141 H (75-99) mg/dL ALT (21-72) U/L Alkaline Phosphatase (38-126) U/L Ur Specific [place] 1.046 H (1.001-1.035) Urine Protein Trace H (Negative) Urine Ketones Trace H (Negative) 07/27/16 07/27/16 07/27/16 Range/Units 07:10 07:10 07:46 RBC 3.90 L (4.30-5.90) m/uL Hgb 11.6 L (13.0-17.5) gm/dL Hct 36.0 L (39.0-53.0) % RDW 15.9 H (11.5-15.5) % Plt Count 121 L (150-450) k/uL Neutrophils # 7.8 H (1.3-7.7) k/uL Lymphocytes # 0.5 L (1.0-4.8) k/uL ABG pH (7.35-7.45) ABG pCO2 (35-45) mmHg ABG HCO3 (21-25) mmol/L ABG Total CO2 (19-24) mmol/L ABG O2 Saturation (94-97) % Carbon Dioxide 21 L (22-30) mmol/L BUN 24 H (9-20) mg/dL Glucose 176 H (74-99) mg/dL POC Glucose (mg/dL) 168 H (75-99) mg/dL ALT 107 H (21-72) U/L Alkaline Phosphatase 231 H (38-126) U/L Ur Specific [place] (1.001-1.035) Urine Protein (Negative) Urine Ketones (Negative) 07/27/16 Range/Units 11:58 RBC (4.30-5.90) m/uL Hgb (13.0-17.5) gm/dL Hct (39.0-53.0) % RDW (11.5-15.5) % Plt Count (150-450) k/uL Neutrophils # (1.3-7.7) k/uL Lymphocytes # (1.0-4.8) k/uL ABG pH (7.35-7.45) ABG pCO2 (35-45) mmHg ABG HCO3 (21-25) mmol/L ABG Total CO2 (19-24) mmol/L ABG O2 Saturation (94-97) % Carbon Dioxide (22-30) mmol/L BUN (9-20) mg/dL Glucose (74-99) mg/dL POC Glucose (mg/dL) 214 H (75-99) mg/dL ALT (21-72) U/L Alkaline Phosphatase (38-126) U/L Ur Specific [place] (1.001-1.035) Urine Protein (Negative) Urine Ketones (Negative) Microbiology - Last 24 Hours (Table) 07/26/16 18:13 Urine Culture - Preliminary Urine,Voided Assessment and Plan Plan: Mr. Menchaca is a 60 year old gentleman with metastatic small cell lung cancer including brain metastasis. He has primary symptoms of chest pressure and shortness of breathe. Based on recent imaging he does have large volume central disease that is likely a cause of this pressure and positional bronchial collapse. He is likely a good candidate for palliative chest radiation. I have discussed this case with Dr. Jerez and he would like to await re-evaluation downtown at [facility] for consideration of maintenance therapy. I have scheduled Mr. Menchaca for a follow up for further discussion as an outpatient regarding chest palliation.
[2016-07-27 17:01] LABS: Glucose,Whole Blood 189 mg/dL (75-99)
--- NOTE | 2016-07-27 17:56 | P.CONS ---
History of Present Illness - Reason for Consult Consult date: 07/27/16 small cell lung cancer Requesting physician: Romario Phillip - Chief Complaint chest pain - History of Present Illness Mr. Souza is a very pleasant 60-year-old male patient of Dr. Jerez who was initially seen in consult in November 2015. Patient at that time had complaints of progressive right upper quadrant abdominal pain. On imaging he was found to have multiple liver metastases. CT also revealed right upper lobe mass that extended into the mediastinum crossing the midline with mediastinal adenopathy. Liver biopsy was performed, this was positive for small cell lung cancer. Patient was started on chemotherapy with carboplatin and etoposide. Patient completed 4 cycles with marketed improvement in his right upper quadrant abdominal pain. He was referred to [facility] in [place] for clinical trials in maintenance therapy. Pt eligibility was being evaluated so patient had an additional cycle of chemotherapy in February 2016. Patient was then participating in preclinical trial workup when he had an MRI of the brain in April 2016. Patient was found to have a mass in the left cerebellum. Patient had whole brain radiation for the same. Patient is case was still being reviewed at [facility] so the patient received another cycle of chemotherapy in June 2016, with poor tolerance. CT in June 2016 showed mild decrease in the lung and mediastinal mass and stable disease elsewhere. Chemotherapy has been on hold since that time. Patient was due for a repeat MRI but unfortunately due to multiple hospital admissions for shortness of breath and associated chest pain this has not been completed. Patient does require open MRI due to severe anxiety. Patient is admitted again with the same symptoms of chest pressure, radiating across the anterior portion of the chest, patient states tenderness to palpation of the sternum, he denies fevers, chills, oral irritation, postnasal drip, cough, numbness or tingling, nausea or vomiting, dizziness, abdominal pain or distention, no acute changes in bowel or bladder habits. Patient complains of moderate to severe musculoskeletal weakness, this is worse if the patient is active in any fashion. His voice gets weaker as he speaks, he does get short of breath the more he talks. Patient's chest x-ray and CTA of the chest have no definitive infection or PE. 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, masses in abdomen that have been causing pain 2 primary tumors in abdomen, tumor pushes on heart, radiation ?5 weeks ago, chemo 07-08-16, short term memory loss since radiation History of Any Multi-Drug Resistant Organisms: None Reported Past Surgical History: Orthopedic Surgery Additional Past Surgical History / Comment(s): cystocopy and KIDNEY STONE REMOVED, ORIF Lt tibia, left knee arthroscopy x 2, rey cataracts,brochoscopy/bx , bx supraclavicular mass Past Anesthesia/Blood Transfusion Reactions: Postoperative Nausea & Vomiting ( PONV) Past Psychological History: No Psychological Hx Reported Smoking Status: Former smoker Past Alcohol Use History: None Reported, Heavy Additional Past Alcohol Use History / Comment(s): quit november 2016 Past Drug Use History: None Reported - Past Family History Mother Family Medical History: Cancer Father Additional Family Medical History / Comment(s): ALS Medications and Allergies Home Medications Medication Instructions Recorded Confirmed Type Losartan Potassium [Cozaar] 100 mg PO DAILY 09/08/15 07/26/16 History amLODIPine BESYLATE [Norvasc] 10 mg PO DAILY 09/08/15 07/26/16 History glipiZIDE [Glucotrol] 5 mg PO AC-BID 09/08/15 07/26/16 History ALPRAZolam [Xanax] 1 mg PO Q8H PRN 07/09/16 07/26/16 History Atorvastatin [Lipitor] 20 mg PO HS 07/09/16 07/26/16 History HYDROcodone/APAP 7.5-325MG [[place] 1 tab PO Q6HR PRN 07/09/16 07/26/16 History 7.5-325] Naproxen Sodium/P-Ephed HCl [Aleve 1 tab PO Q12H PRN 07/09/16 07/26/16 History Cold and Sinus Caplet] Budesonide-Formot 160-4.5 Mcg 2 puff INHALATION RT-BID 07/26/16 07/26/16 History [Symbicort 160-4.5 Mcg Inhaler] Ipratropium-Albuterol Nebulize 3 ml INHALATION RT-QID 07/26/16 07/26/16 History [Duoneb 0.5 mg-3 mg/3 ml Soln] predniSONE See Taper PO DIRECTED 07/26/16 07/26/16 History Allergies Allergy/AdvReac Type Severity Reaction Status Date / Time Penicillins AdvReac SEE COMMENT Verified 07/26/16 12:14 Physical Exam Vitals: Vital Signs Temp Pulse Pulse Resp BP Pulse Ox 07/27/16 16:08 96.6 F L 88 16 102/61 95 07/27/16 16:00 88 16 07/27/16 13:54 80 07/27/16 13:41 80 07/27/16 08:00 82 16 07/27/16 07:38 75 07/27/16 07:31 75 07/27/16 07:20 75 94 L 07/27/16 07:00 97.8 F 82 16 100/57 96 07/26/16 23:50 16 07/26/16 21:11 98.2 F 87 16 123/70 93 L 07/26/16 20:46 104 H 07/26/16 20:34 104 H 07/26/16 20:33 104 H 07/26/16 20:23 100 Intake and Output 07/27/16 07/27/16 07/27/16 06:59 14:59 22:59 Intake Total 420 Balance 420 Intake: Intake, IV Titration 300 Amount Cefepime 2 gm In Sodium 50 Chloride 0.9% 50 ml @ 100 mls/hr IVPB Q8HR [facility]UPINDER Rx# :[id number] Vancomycin 1,750 mg In 250 Sodium Chloride 0.9% 250 ml @ 125 mls/hr IVPB Q12H [facility]UPINDER Rx#:[id number] Oral 120 Other: # Voids 2 Weight 120 kg Patient Weight 07/28/16 06:59 Weight 120 kg - Constitutional General appearance: cooperative, mild distress, obese - EENT Eyes: anicteric sclerae, PERRLA, normal appearance ENT: normal oropharynx - Neck Neck: no lymphadenopathy - Respiratory Respiratory: bilateral: CTA - Cardiovascular Rhythm: regular Heart sounds: normal: S1, S2 leg Peripheral Edema: bilateral: None - Gastrointestinal General gastrointestinal: no absent bowel sounds, no decreased bowel sounds, no distended, no hepatomegaly, no hyperactive bowel sounds, normal bowel sounds, no organomegaly, no rigid, no scaphoid, soft, no splenomegaly, no tenderness, no umbilical hernia, no ventral hernia - Integumentary Integumentary: normal - Neurologic Neurologic: CNII-XII intact - Musculoskeletal Musculoskeletal: generalized weakness, strength equal bilaterally - Psychiatric Psychiatric: A&O x's 3, appropriate affect, intact judgment & insight Results CBC & Chem 7: 07/27/16 07:10 07/27/16 07:10 Labs: Abnormal Lab Results - Last 24 Hours (Table) 07/26/16 07/26/16 07/27/16 Range/Units 18:13 19:53 07:10 RBC 3.90 L (4.30-5.90) m/uL Hgb 11.6 L (13.0-17.5) gm/dL Hct 36.0 L (39.0-53.0) % RDW 15.9 H (11.5-15.5) % Plt Count 121 L (150-450) k/uL Neutrophils # 7.8 H (1.3-7.7) k/uL Lymphocytes # 0.5 L (1.0-4.8) k/uL Carbon Dioxide (22-30) mmol/L BUN (9-20) mg/dL Glucose (74-99) mg/dL POC Glucose (mg/dL) 141 H (75-99) mg/dL ALT (21-72) U/L Alkaline Phosphatase (38-126) U/L Ur Specific [place] 1.046 H (1.001-1.035) Urine Protein Trace H (Negative) Urine Ketones Trace H (Negative) 07/27/16 07/27/16 07/27/16 Range/Units 07:10 07:46 11:58 RBC (4.30-5.90) m/uL Hgb (13.0-17.5) gm/dL Hct (39.0-53.0) % RDW (11.5-15.5) % Plt Count (150-450) k/uL Neutrophils # (1.3-7.7) k/uL Lymphocytes # (1.0-4.8) k/uL Carbon Dioxide 21 L (22-30) mmol/L BUN 24 H (9-20) mg/dL Glucose 176 H (74-99) mg/dL POC Glucose (mg/dL) 168 H 214 H (75-99) mg/dL ALT 107 H (21-72) U/L Alkaline Phosphatase 231 H (38-126) U/L Ur Specific [place] (1.001-1.035) Urine Protein (Negative) Urine Ketones (Negative) 07/27/16 Range/Units 16:45 RBC (4.30-5.90) m/uL Hgb (13.0-17.5) gm/dL Hct (39.0-53.0) % RDW (11.5-15.5) % Plt Count (150-450) k/uL Neutrophils # (1.3-7.7) k/uL Lymphocytes # (1.0-4.8) k/uL Carbon Dioxide (22-30) mmol/L BUN (9-20) mg/dL Glucose (74-99) mg/dL POC Glucose (mg/dL) 189 H (75-99) mg/dL ALT (21-72) U/L Alkaline Phosphatase (38-126) U/L Ur Specific [place] (1.001-1.035) Urine Protein (Negative) Urine Ketones (Negative) Microbiology - Last 24 Hours (Table) 07/26/16 18:13 Urine Culture - Preliminary Urine,Voided Chest x-ray: report reviewed CT scan - chest: report reviewed Assessment and Plan (1) Small cell lung cancer Narrative/Plan: Metastatic small cell lung cancer to the liver. Patient is status post 6 cycles of carboplatin and etoposide. Patient has also had whole brain radiation for solitary left cerebellum lesion. Patient had open MRI scan scheduled at [facility] but due to to hospitalizations within the last few weeks this has had to be rescheduled. Patient will reschedule this appointment. This MRI is needed for patient to be qualified for clinical trial at [facility]. Patient has also been evaluated by radiation oncology. Patient is going to be evaluated for possible radiation to the chest mass to see if this can relieve some of patient's symptoms. Status: Acute (2) SOB (shortness of breath) Status: Acute (3) Chest pain Status: Acute Plan: Chest pain and shortness of breath are felt to be multi factoral including COPD , mass effect from the tumor, bronchospasm and it is also felt that there is a psychological component because when the patient becomes anxious the difficulty breathing exacerbates with subsequent chest pain. Also from patient's description of onset of symptoms it sounds as though there is a degree of exercise intolerance. We will consult physical therapy to evaluate patient, may need pulmonary consult for medications if the patient is experiencing bronchospasm and exercise intolerance. He will be evaluated for oxygen. Patient's anxiety and pain medications will also be adjusted for comfort.
[2016-07-27] MEDS: HYDROcodone/APAP 7.5-325MG 1 EACH TAB PO PRN (20:13)
[2016-07-27] MEDS: ALPRAZolam 0.5 MG TAB PO PRN (20:15)
[2016-07-27] MEDS: ATORVASTATIN 20 MG TAB PO SCH (20:16)
[2016-07-27 20:44] LABS: Glucose,Whole Blood 236 mg/dL (75-99)
--- NOTE | 2016-07-27 21:44 | PN ---
DATE OF SERVICE: 07/27/2016 This 60-year-old gentleman admitted with shortness of breath, possible COPD acute exacerbation, and pneumonia as well. The patient had recent lung cancer. Patient also underwent chemotherapy. 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 Radiology opinion has been sought at this time and Dr. Holly has seen the patient. The possibility of palliative radiation is being considered at this time. Otherwise, the patient being closely monitored. The patient also had respiratory alkalosis. PAST MEDICAL HISTORY: Reviewed. REVIEW OF SYSTEMS: CARDIOVASCULAR: As mentioned earlier. RESPIRATORY: As mentioned earlier. GI: No nausea or vomiting. : No dysuria. Nervous system: No numbness, weakness. The current medications are reviewed and include: 1. [place] 7.5. q4h p.r.n. 2. Ventolin t.i.d. 3. Xanax 1 mg q.i.d. p.r.n. 4. Norvasc 10 mg daily. 5. Lipitor 20 mg q.h.s. 6. Pulmicort 0.5 b.i.d. 7. Cefepime 2 grams q.8. 8. Pepcid. 9. Dilaudid. 10. Xopenex. 11. Cozaar. 12. Solu-Medrol 60 IV q.6. 13. Vancomycin. 14. Narcan. 16. Zofran. 17. Sudafed. 18. Restoril. 19. Vancomycin. PHYSICAL EXAMINATION: The patient is alert and oriented times three. Pulse 80. Blood pressure ( ). Respiratory rate 16, temperature 97.6, pulse ox 94% on room air. HEENT: Conjunctivae normal. NECK: No jugular venous distention. CARDIOVASCULAR: S1, S2 muffled. RESPIRATORY: Breath sounds diminished at the bases. Bilateral scattered rhonchi and crackles. Expiratory wheezing also present. ABDOMEN: Soft, nontender. LEGS: No edema. No swelling. CENTRAL NERVOUS SYSTEM: No focal deficits. LABS: WBC 8.2, hemoglobin 11.6, platelets 121. The glucose 176, ALT is 107. Alk phos 231. ASSESSMENT: 1. Chronic obstructive pulmonary disease, acute exacerbation, with acute bilateral pneumonia, possibly gram-negative with acute sepsis, present on admission. 2. Acute respiratory alkalosis. 3. Increased WBC. 4. Anemia, normocytic. 5. Thrombocytopenia. 6. Obesity with a body mass index of . 7. History of recently diagnosed small cell lung cancer with extensive metastasis. Status post chemotherapy. 8. Mediastinal lymphadenopathy. 9. History of nicotine dependence. 10. Hypertension. 11. Hyperlipidemia. 12. Diabetes mellitus type 2 history. 13. History of degenerative joint disease. 14. History of ETOH. 15. Increased plasma lactic acid. 16. Increased AST, ALT. 17. FULL CODE. RECOMMENDATIONS AND DISCUSSION: In this 60-year-old gentleman who presented with multiple complex medical issues, we will monitor the patient closely. Continue the current medications, continue with bronchodilators, continue with antibiotics. Continue with IV steroids. Monitor blood sugars closely. Patient is apparently candidate for palliative radiation therapy as an outpatient. Guarded prognosis because of multiple complex medical issues. Further recommendations to follow. MTDD
[2016-07-28] MEDS: HYDROmorphone 1 MG/ML 1 ML SYRINGE IVP PRN ×3 (00:51→21:01)
[2016-07-28] MEDS: CEFEPIME 2 GM in SODIUM CHLORIDE 0.9% 50 ML IVPB SCH ×3 (00:53→18:00)
[2016-07-28] MEDS: methylPREDNISolone SOD SUCCI 125 MG/2 ML VIAL IV SCH ×3 (00:53→12:23)
[2016-07-28] MEDS: ALBUTEROL NEBULIZED 2.5 MG/3 ML INHALATION SCH ×3 (07:18→18:51)
[2016-07-28] MEDS: BUDESONIDE 0.5 MG/2 ML NEBU INHALATION SCH ×2 (07:18→18:51)
[2016-07-28] MEDS: FORMOTEROL FUMARATE 20 MCG/2 ML NEBU INHALATION SCH ×2 (07:18→18:51)
[2016-07-28] MEDS: HYDROcodone/APAP 7.5-325MG 1 EACH TAB PO PRN (07:51)
[2016-07-28 07:54] LABS: Glucose,Whole Blood 188 mg/dL (75-99)
[2016-07-28] MEDS: INSULIN LISPRO (humaLOG) 300 UNIT/3 ML VIAL SQ SCH ×4 (08:49→21:06)
[2016-07-28] MEDS: amLODIPine 10 MG TAB PO SCH (08:50)
[2016-07-28] MEDS: FAMOTIDINE 20 MG TAB PO SCH ×2 (08:50→21:06)
[2016-07-28] MEDS: LOSARTAN 50 MG TAB PO SCH (08:50)
[2016-07-28] MEDS: CHLORPHEN-HYDROcod 8-10mg/5ml 5 ML ORAL.SYRG PO SCH ×2 (08:52→23:35)
[2016-07-28] MEDS ORDERED: VANCOMYCIN TROUGH DUE 1 EACH MISC MISCELLANE ONE (09:00)
[2016-07-28 09:37] LABS: Basophils % (A) 0 %; CH 30.1; CHCM 32.7; Eosinophils % (A) 0 %; HCT 35.5 % (39.0-53.0); HDW 2.32; HGB 11.2 gm/dL (13.0-17.5); Luc # (Auto) 0.06; Luc % (Auto) 0; Lymphocytes # (A) 0.6 k/uL (1.0-4.8); Lymphocytes % (A) 3 %; MCH 29.1 pg (25.0-35.0); MCHC 31.5 g/dL (31.0-37.0); MCV 92.4 fL (80.0-100.0); Monocytes # (A) 0.7 k/uL (0-1.0); Monocytes % (A) 3 %; Neutrophils # (A) 19.5 k/uL (1.3-7.7); Neutrophils % (A) 93 %; RBC 3.85 m/uL (4.30-5.90); RDW 15.9 % (11.5-15.5); WBC 20.9 k/uL (3.8-10.6); WBC (Perox) 21.95
[2016-07-28 10:53] LABS: ALT 103 U/L (21-72); AST 53 U/L (17-59); Alkaline Phosphatase 205 U/L (38-126); Anion Gap 15 mmol/L; Blood Urea Nitrogen 28 mg/dL (9-20); Calcium 9.2 mg/dL (8.4-10.2); Carbon Dioxide 20 mmol/L (22-30); Chloride 102 mmol/L (98-107); Glucose 155 mg/dL (74-99); Non-African American GFR(MDRD) >60 (>60 ml/min/1.73 sqM); Potassium 4.7 mmol/L (3.5-5.1); Sodium 137 mmol/L (137-145); Total Bilirubin 0.6 mg/dL (0.2-1.3); Total Protein 6.4 g/dL (6.3-8.2)
[2016-07-28] MEDS: VANCOMYCIN 1,750 MG in SODIUM CHLORIDE 0.9% 250 ML IVPB SCH (11:11)
[2016-07-28 12:07] LABS: Glucose,Whole Blood 176 mg/dL (75-99)
[2016-07-28 16:37] LABS: Glucose,Whole Blood 185 mg/dL (75-99)
[2016-07-28] MEDS: ALPRAZolam 0.5 MG TAB PO PRN ×2 (18:02→23:36)
[2016-07-28] MEDS ORDERED: IPRATROPIUM-ALBUTEROL 3 ML NEB INHALATION PRN (18:56)
[2016-07-28 20:33] LABS: Glucose,Whole Blood 218 mg/dL (75-99)
[2016-07-28] MEDS: IPRATROPIUM-ALBUTEROL 3 ML NEB INHALATION SCH (20:47)
[2016-07-28] MEDS: ATORVASTATIN 20 MG TAB PO SCH (21:05)
--- NOTE | 2016-07-28 22:16 | PN ---
DATE OF SERVICE: 07/28/2016 This 60-year-old gentleman admitted with shortness of breath, possible COPD acute exacerbation/pneumonia, the patient was evaluated by therapy and recommended outpatient palliative radiation for significant mediastinal mass and lung cancer. The patient on IV steroids. PAST MEDICAL HISTORY: Reviewed. REVIEW OF SYSTEMS: CARDIOVASCULAR: No angina. RESPIRATORY: As mentioned earlier. GI: No nausea. : No dysuria. NERVOUS SYSTEM: No numbness or weakness. Current medications are reviewed and include: 1. [place] 7.5 every 5 p.r.n. 2. Ventolin t.i.d. 3. Xanax 1 mg daily. 4. Norvasc 10 mg daily. 5. Lipitor 20 mg at bedtime. 6. Pulmicort 2.5 b.i.d. 7. Cefepime 2 grams every 8. 8. Pepcid 20 mg daily. 9. [place] 20 mg b.i.d. 10. Dilaudid 0.2 mg every 4. 11. Humalog scale. 12. Atrovent. 13. Cozaar. 14. Solu-Medrol. 15. Narcan. 16. Naprosyn. 17. Zofran. 18. Sudafed. 19. Restoril. 20. Vancomycin. 21. IV fluids. PHYSICAL EXAMINATION: GENERAL: Alert, oriented x2. VITAL SIGNS: Pulse 60, blood pressure is 106/61, respirations 18, temperature normal, pulse ox 94% on room air. HEENT: Conjunctiva normal. NECK: No JVD. No carotid bruits. RESPIRATORY: Breath sounds diminished at the bases. A few scattered rhonchi and crackles. Respiratory wheezing also present. ABDOMEN: Soft, obese, nontender. No masses felt. EXTREMITIES: No edema. NERVOUS SYSTEM: Higher functions as mentioned. Moves all limbs equally. No focal motor or sensory deficits. LYMPHATICS: No lymph nodes in the neck, axillae or groin. SKIN: No ulcers or rashes. LABS: WBC 20.9, hemoglobin 7.2. ASSESSMENT: 1. Chronic obstructive pulmonary disease acute exacerbation with acute bilateral pneumonia, possibly gram-negative with acute sepsis, present on admission. 2. Sepsis with acute hypoxic respiratory failure, present on admission. 3. Acute respiratory alkalosis. 4. Increased WBC. 5. Anemia, normocytic. 6. Thrombocytopenia. 7. Obesity, high body mass index. 8. History of recently diagnosed small cell lung cancer with extensive mediastinal mets, status post chemotherapy. 9. Mediastinal lymphadenopathy. 10. History of nicotine dependence. 11. Hypertension. 12. Hyperlipidemia. 13. Diabetes mellitus type 2. 14. History of degenerative joint disease. 15. History of EtOH. 16. Increased plasma lactic acid. 17. Increased AST, ALT. 18. FULL CODE. RECOMMENDATIONS AND DISCUSSION: This 60-year-old gentleman who presented with multiple complex medical issues, we will monitor the patient closely, continue we will taper the steroids, continue with bronchodilators and aerosol medications. Malignancy also may be contributing to the shortness of breath per se. Also agree with radiation therapy, Dr. Barajas's recommendations, to pursue palliative radiation therapy. Closely follow with Dr. Phillip, the lodge officer. See orders for further details. Further recommendations to follow. MTDD
[2016-07-29] MEDS: HYDROmorphone 1 MG/ML 1 ML SYRINGE IVP PRN ×3 (01:14→22:23)
[2016-07-29] MEDS: VANCOMYCIN 1,750 MG in SODIUM CHLORIDE 0.9% 250 ML IVPB SCH ×3 (01:49→22:29)
[2016-07-29] MEDS: CEFEPIME 2 GM in SODIUM CHLORIDE 0.9% 50 ML IVPB SCH ×3 (02:38→16:57)
[2016-07-29] MEDS: methylPREDNISolone SOD SUCCI 40 MG/ML 1 ML VIAL IV SCH ×3 (02:40→16:58)
[2016-07-29 07:29] LABS: Glucose,Whole Blood 101 mg/dL (75-99)
[2016-07-29 07:34] LABS: Basophils % (A) 0 %; CH 29.9; CHCM 32.3; Eosinophils % (A) 0 %; HCT 34.6 % (39.0-53.0); HDW 2.32; HGB 10.9 gm/dL (13.0-17.5); Luc # (Auto) 0.11; Luc % (Auto) 1; Lymphocytes % (A) 5 %; MCH 29.5 pg (25.0-35.0); MCHC 31.7 g/dL (31.0-37.0); MCV 93.2 fL (80.0-100.0); Mean Platelet Volume 8.1; Monocytes % (A) 5 %; Neutrophils # (A) 17.1 k/uL (1.3-7.7); Neutrophils % (A) 89 %; RBC 3.71 m/uL (4.30-5.90); WBC 19.3 k/uL (3.8-10.6); WBC (Perox) 19.96
[2016-07-29 07:53] LABS: ALT 124 U/L (21-72); AST 63 U/L (17-59); Alkaline Phosphatase 201 U/L (38-126); Anion Gap 11 mmol/L; Blood Urea Nitrogen 29 mg/dL (9-20); Calcium 9.2 mg/dL (8.4-10.2); Carbon Dioxide 22 mmol/L (22-30); Chloride 106 mmol/L (98-107); Glucose 101 mg/dL (74-99); Non-African American GFR(MDRD) >60 (>60 ml/min/1.73 sqM); Potassium 4.9 mmol/L (3.5-5.1); Sodium 139 mmol/L (137-145); Total Bilirubin 0.5 mg/dL (0.2-1.3); Total Protein 6.3 g/dL (6.3-8.2)
[2016-07-29] MEDS: INSULIN LISPRO (humaLOG) 300 UNIT/3 ML VIAL SQ SCH ×4 (09:10→22:27)
[2016-07-29] MEDS: FAMOTIDINE 20 MG TAB PO SCH ×2 (09:13→20:39)
[2016-07-29] MEDS: amLODIPine 10 MG TAB PO SCH (09:13)
[2016-07-29] MEDS: LOSARTAN 50 MG TAB PO SCH (09:13)
[2016-07-29] MEDS: BUDESONIDE 0.5 MG/2 ML NEBU INHALATION SCH ×2 (09:24→19:45)
[2016-07-29] MEDS: FORMOTEROL FUMARATE 20 MCG/2 ML NEBU INHALATION SCH ×2 (09:24→19:45)
[2016-07-29] MEDS: IPRATROPIUM-ALBUTEROL 3 ML NEB INHALATION SCH ×3 (09:25→19:45)
[2016-07-29] MEDS: CHLORPHEN-HYDROcod 8-10mg/5ml 5 ML ORAL.SYRG PO SCH ×2 (10:49→20:40)
[2016-07-29 12:23] LABS: Glucose,Whole Blood 111 mg/dL (75-99)
[2016-07-29] MEDS: glipiZIDE 5 MG TAB PO SCH (16:59)
[2016-07-29 17:14] LABS: Glucose,Whole Blood 152 mg/dL (75-99)
[2016-07-29] MEDS: ATORVASTATIN 20 MG TAB PO SCH (20:39)
[2016-07-29 22:13] LABS: Glucose,Whole Blood 164 mg/dL (75-99)
--- NOTE | 2016-07-29 22:21 | PN ---
DATE OF SERVICE: 07/28/2016 Mr. Menchaca is a 60-year-old male who is seen, evaluated, examined. This patient has history of supraclavicular mass with biopsy, came back positive for small cell cancer. Patient has METs to the brain. He is status post radiation therapy. He has been on chemotherapy as well. The patient came in to the hospital with cough, congestion, shortness of breath and chest pain. Spiral CT is negative for PE. ( ) SVC compression has been noted. Radiation oncology and oncology service has been following this patient as well. Last set of vitals include blood pressure is 130/80, respiratory rate 16, pulse 80, temperature 97, sating 94%. HEENT: Atraumatic, normocephalic. Pharynx is clear. NECK: Supple without any lymphadenopathy, jugular venous distention or carotid bruit. Neck veins slightly prominent. LUNGS: Bilateral coarse breath sounds present, expiratory rhonchi. HEART: Regular rate and rhythm. S1 and S2 audible. ABDOMEN: Soft. No rebound or rigidity. EXTREMITIES: +1 peripheral pulses. NEUROLOGICAL EXAMINATION: Otherwise, awake and alert. IMPRESSION: 1. Acute chronic obstructive pulmonary disease exacerbation and bilateral pneumonia, mixed bacterial pneumonia and gram-negative cannot be excluded. 2. Sepsis associated pneumonia. 3. Chronic anemia and thrombocytopenia with morbid obesity. 4. 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 5. Mediastinal lymphadenopathy with large right-sided mass Patient has been evaluated by radiation oncology and recommended radiation therapy. Will follow.
--- NOTE | 2016-07-29 22:41 | PN ---
DATE OF SERVICE: 07/29/2016 Mr. Menchaca is a 60-year-old male, who has small cell cancer with a large right-sided hilar mass compressing the SVC; however, no obvious signs of SVC syndrome, has been noted though. Patient has feeling of chest pressure and pain which appears to be related to large mass. Patient has been evaluated by oncology and radiation oncology did recommend radiation therapy on outpatient basis. Clinically, patient is doing well. Clinically, patient is not much change. Cough, congestion, shortness breath improved. He is being treated for acute COPD exacerbation and pneumonia. His last set of vitals include blood pressure is 110/60, respiratory rate 16, pulse 83, temperature 97, sating 94%. HEENT: Unremarkable. NECK: Supple. LUNGS: Good air entry bilaterally. HEART: Regular rate and rhythm. ABDOMEN: Soft. No rebound or rigidity. EXTREMITIES: +1 peripheral pulses. NEUROLOGICAL EXAMINATION: Otherwise awake and alert. Labs reviewed. Medications reviewed as well. IMPRESSION: 1. Bilateral pneumonia. 2. Chest pressure related to large mass in the mediastinal with area of collapse, which may be causing contribution developing pneumonia intermittently. 3. Small cell cancer stage IV with mets to the brain. 4. History of XRT. 5. Severe chronic obstructive pulmonary disease. 6. Morbid obesity. 7. Large supraclavicular right-sided mass. PLAN: As above. Continue supportive care. Antibiotics, supportive care. Follow clinical course closely. Further recommendations pending.
[2016-07-30] MEDS: methylPREDNISolone SOD SUCCI 40 MG/ML 1 ML VIAL IV SCH ×4 (00:24→23:53)
[2016-07-30] MEDS: CEFEPIME 2 GM in SODIUM CHLORIDE 0.9% 50 ML IVPB SCH ×3 (00:25→15:48)
[2016-07-30] MEDS: HYDROmorphone 1 MG/ML 1 ML SYRINGE IVP PRN ×4 (04:02→23:55)
[2016-07-30 07:39] LABS: Glucose,Whole Blood 114 mg/dL (75-99)
[2016-07-30 08:00] LABS: ALT 202 U/L (21-72); AST 102 U/L (17-59); Alkaline Phosphatase 235 U/L (38-126); Anion Gap 10 mmol/L; Blood Urea Nitrogen 23 mg/dL (9-20); Calcium 9.3 mg/dL (8.4-10.2); Carbon Dioxide 22 mmol/L (22-30); Chloride 106 mmol/L (98-107); Glucose 121 mg/dL (74-99); Non-African American GFR(MDRD) >60 (>60 ml/min/1.73 sqM); Potassium 5.1 mmol/L (3.5-5.1); Sodium 138 mmol/L (137-145); Total Bilirubin 0.7 mg/dL (0.2-1.3); Total Protein 6.5 g/dL (6.3-8.2)
[2016-07-30] MEDS: CHLORPHEN-HYDROcod 8-10mg/5ml 5 ML ORAL.SYRG PO SCH ×2 (08:03→22:29)
[2016-07-30] MEDS: glipiZIDE 5 MG TAB PO SCH ×3 (08:04→17:20)
[2016-07-30] MEDS: FAMOTIDINE 20 MG TAB PO SCH ×2 (08:05→22:29)
[2016-07-30] MEDS: amLODIPine 10 MG TAB PO SCH (08:05)
[2016-07-30] MEDS: LOSARTAN 50 MG TAB PO SCH (08:05)
[2016-07-30] MEDS: INSULIN LISPRO (humaLOG) 300 UNIT/3 ML VIAL SQ SCH ×4 (08:05→22:30)
[2016-07-30 08:17] LABS: Basophils % (A) 0 %; CH 29.8; CHCM 32.1; Eosinophils % (A) 0 %; HCT 35.4 % (39.0-53.0); HDW 2.31; HGB 11.5 gm/dL (13.0-17.5); Luc # (Auto) 0.12; Luc % (Auto) 1; Lymphocytes # (A) 0.8 k/uL (1.0-4.8); Lymphocytes % (A) 5 %; MCH 30.2 pg (25.0-35.0); MCHC 32.5 g/dL (31.0-37.0); MCV 93.2 fL (80.0-100.0); Mean Platelet Volume 7.2; Monocytes # (A) 0.8 k/uL (0-1.0); Monocytes % (A) 5 %; Neutrophils % (A) 89 %; WBC 14.6 k/uL (3.8-10.6); WBC (Perox) 14.88
[2016-07-30] MEDS: BUDESONIDE 0.5 MG/2 ML NEBU INHALATION SCH ×2 (08:48→20:07)
[2016-07-30] MEDS: IPRATROPIUM-ALBUTEROL 3 ML NEB INHALATION SCH ×3 (08:48→20:07)
[2016-07-30] MEDS: FORMOTEROL FUMARATE 20 MCG/2 ML NEBU INHALATION SCH ×2 (08:48→20:07)
--- NOTE | 2016-07-30 09:16 | PN ---
DATE OF SERVICE: 07/29/2016 This is a 60-year-old gentleman who was admitted with COPD acute exacerbation as well as acute hypoxic respiratory failure, is being improved significantly. No chest pain or palpitation. No fever. On exam, alert and oriented x3. Pulse 83, blood pressure 112/62, respirations 16, temperature is 97.4, pulse ox 94% on room air. HEENT: Conjunctivae normal. NECK: No jugular venous distension. CARDIOVASCULAR: S1, S2, muffled. RESPIRATORY: Breath sounds diminished at the bases. Bilateral scattered rhonchi, no crackles. Abdomen is soft, obese, nontender. EXTREMITIES: Legs no edema. NERVOUS SYSTEM: No focal deficits. Labs are at this time WBC is 19.3, hemoglobin is 10.9. ASSESSMENT: 1. Chronic obstructive pulmonary disease acute exacerbation, with acute bilateral pneumonia, possibly gram-negative with acute sepsis, present on admission. 2. Sepsis with acute hypoxic respiratory failure, present on admission. 3. Acute respiratory alkalosis. 4. Increased WBC. 5. Anemia, normocytic. 6. Thrombocytopenia. 7. Obesity. High body mass index of 34. 8. History of recently diagnosed small cell lung cancer with extensive mediastinal metastases, status post chemotherapy. 9. Mediastinal lymphadenopathy. 10. History of nicotine dependence. 11. Hypertension. 12. Hyperlipidemia. 13. Diabetes mellitus type 2. 14. History of degenerative joint disease. 15. History of Ethyl alcohol. 16. Increased plasma lactic acid, present on admission. 17. Increased AST, ALT. 18. FULL CODE. RECOMMENDATION: In this 60-year-old gentleman who presented with multiple complex medical issues, will monitor the patient closely. Continue with the current medication and symptomatic treatment. Otherwise, at this time I would recommend continue with the bronchodilators, taper the steroids. Continue the rest of the medications. Closely follow with Pulmonary. Guarded prognosis. Further recommendations to follow.
[2016-07-30] MEDS: VANCOMYCIN 1,750 MG in SODIUM CHLORIDE 0.9% 250 ML IVPB SCH ×2 (11:43→22:32)
[2016-07-30 11:48] LABS: Glucose,Whole Blood 120 mg/dL (75-99)
[2016-07-30] MEDS: LORazepam 0.5 MG TAB PO PRN (14:00)
[2016-07-30 17:18] LABS: Glucose,Whole Blood 122 mg/dL (75-99)
--- NOTE | 2016-07-30 17:51 | CONS ---
DATE OF CONSULTATION: 07/30/2016 Mr. Menchaca is seen, evaluated, examined and followed. This patient is a 60-year-old male with pneumonia, acute COPD exacerbation and a large mass in the right perihilar area causing a feeling of chest pain and discomfort. Patient has a right supraclavicular mass as well. He has been found to have small-cell lung cancer, stage IV, with metastases to the brain which have been radiated. Patient has been on chemotherapy. Came into the hospital with chest pain and cough. He is being treated with steroids, bronchodilators and broad-spectrum antibiotics. Patient has been evaluated by Radiation Oncology as well as General Medical Oncology. His last set of vitals includes blood pressure 120/70, respiratory rate 20, pulse 80, temperature 97. Saturating 93% on 3 L oxygen. HEENT: Unremarkable. Atraumatic, normocephalic. Pharynx is clear. NECK: Supple without lymphadenopathy, jugular venous distention or carotid bruit. LUNGS: Bilateral good air entry is present with fine expiratory rhonchi. HEART: Regular rate, rhythm. S1, S2 audible. ABDOMEN: Soft. No rebound or rigidity. EXTREMITIES: Plus one. NEUROLOGICAL EXAMINATION: Awake and alert. Labs reviewed. White cell count 14,600, hemoglobin 11, hematocrit 35, platelet count 149,000. Sodium 138, potassium 5.1. BUN and creatinine are 23 and 0.82. AST and ALT are 102 and 202. Alkaline phosphatase is 235. Culture results and reports are reviewed. Blood culture is positive for Staph epi; however, repeat blood culture has no growth so far. Urine culture results are pending. Current medications are reviewed and include: 1. Tylenol with codeine 4 times a day. 2. DuoNeb updraft 4 times a day. 3. Amlodipine 10 mg daily. 4. Lipitor 20 mg daily. 5. Pulmicort 2 times a day. 6. Cefepime 2 grams q.8. 7. Tussionex as needed. 8. Pepcid. 9. Perforomist. 10. Glipizide 5 mg daily. 11. Dilaudid for pain control. 12. Ativan. 13. Cozaar. 14. Solu-Medrol 40 q.8 hourly. 15. Vancomycin. 16. Zofran. 17. Temazepam. The chest x-ray performed on 07/27/[address] scan of the chest have been reviewed; suggestive of left lung volume loss as well as right-sided infiltrate versus pneumonia and large mass in the right perihilar area which is about 9 x 8 cm in size, slightly ( ) than the previous exam of 11 x 9 cm. IMPRESSION: 1. Sepsis and pneumonia, on broad-spectrum antibiotics. Pneumonia involves the left lower lobe as well as the right lower lobe. 2. Progressively enlarging right-sided mediastinal mass. Patient is for radiation therapy in outpatient setting. 3. Severe chronic obstructive pulmonary disease and emphysema. 4. Stage IV small-cell lung cancer. PLAN AND RECOMMENDATION: As above. Continue supportive care. Continue antibiotics, breathing treatments. Will follow clinical course closely. Further recommendations pending. Plan of care as per clinical response of the patient.
[2016-07-30 20:22] LABS: Glucose,Whole Blood 174 mg/dL (75-99)
[2016-07-30] MEDS: HYDROcodone/APAP 7.5-325MG 1 EACH TAB PO PRN (20:22)
[2016-07-30] MEDS: ATORVASTATIN 20 MG TAB PO SCH (22:29)
[2016-07-31] MEDS: CEFEPIME 2 GM in SODIUM CHLORIDE 0.9% 50 ML IVPB SCH ×4 (00:52→23:43)
[2016-07-31] MEDS: HYDROmorphone 1 MG/ML 1 ML SYRINGE IVP PRN ×3 (06:14→14:25)
[2016-07-31] MEDS: FORMOTEROL FUMARATE 20 MCG/2 ML NEBU INHALATION SCH ×2 (06:57→18:59)
[2016-07-31] MEDS: BUDESONIDE 0.5 MG/2 ML NEBU INHALATION SCH ×2 (06:57→18:59)
[2016-07-31] MEDS: IPRATROPIUM-ALBUTEROL 3 ML NEB INHALATION SCH ×3 (06:57→18:58)
[2016-07-31 07:04] LABS: Glucose,Whole Blood 90 mg/dL (75-99)
--- NOTE | 2016-07-31 07:23 | PN ---
DATE OF SERVICE: 07/30/2016 This is a 60-year-old gentleman who was admitted with COPD acute exacerbation, with acute hypoxic respiratory failure, is being closely monitored at this time. The patient has also been evaluated for radiation, there is no chest pain. No palpitation. No fever. On exam, alert and oriented x3. Pulse is 80, blood pressure 120/68, respirations 20, temperature is 97.4, pulse ox 97% on 3 L. HEENT: Conjunctivae normal. NECK: No jugular venous distension. CARDIOVASCULAR SYSTEM: S1, S2, muffled. RESPIRATORY: Breath sounds diminished at the bases, a few scattered rhonchi, no crackles. Abdomen is soft, nontender. EXTREMITIES: Legs no edema. NERVOUS SYSTEM: No focal deficits. LABS: WBC is 14.6 hemoglobin is 11.5, glucose 114. ASSESSMENT: 1. Chronic obstructive pulmonary disease acute exacerbation with acute bilateral pneumonia, gram-negative with acute sepsis, present on admission. 2. Sepsis with acute hypoxic respiratory failure, present on admission. 3. Acute respiratory alkalosis. 4. Increased WBC. 5. Anemia, normocytic. 6. Thrombocytopenia. 7. Obesity, body mass index of 34. 8. History of recently diagnosed non-small cell cancer with extensive mediastinal metastases, status post chemotherapy. 9. Mediastinal lymphadenopathy. 10. History of nicotine dependence. 11. Hypertension. 12. Hyperlipidemia. 13. Diabetes mellitus type 2. 14. History of degenerative joint disease. 15. History of Ethyl alcohol. 16. Increased plasma lactic acid, present on admission. 17. Increased AST, ALT. 18. FULL CODE. RECOMMENDATION: Recommend to continue current medication. Continue with the monitoring and symptomatic treatment. Otherwise, continue with bronchodilators, continue with steroids. Guarded prognosis because of multiple complex medical issues. Further recommendations to follow.
[2016-07-31 07:48] VITALS: RESP 20
[2016-07-31] MEDS: amLODIPine 10 MG TAB PO SCH (08:31)
[2016-07-31] MEDS: FAMOTIDINE 20 MG TAB PO SCH ×2 (08:31→20:14)
[2016-07-31] MEDS: LOSARTAN 50 MG TAB PO SCH (08:31)
[2016-07-31] MEDS: CHLORPHEN-HYDROcod 8-10mg/5ml 5 ML ORAL.SYRG PO SCH ×2 (08:38→21:15)
[2016-07-31 08:40] LABS: Anisocytosis Slight; Basophils # (A) 0.1 k/uL (0-0.2); Basophils % (A) 1 %; CH 30.1; CHCM 32.7; Eosinophils % (A) 0 %; HCT 36.2 % (39.0-53.0); HDW 2.38; HGB 11.5 gm/dL (13.0-17.5); Luc # (Auto) 0.09; Luc % (Auto) 1; Lymphocytes # (A) 0.9 k/uL (1.0-4.8); Lymphocytes % (A) 6 %; MCH 29.5 pg (25.0-35.0); MCHC 31.9 g/dL (31.0-37.0); MCV 92.6 fL (80.0-100.0); Mean Platelet Volume 8.2; Monocytes # (A) 0.8 k/uL (0-1.0); Monocytes % (A) 5 %; Neutrophils # (A) 12.9 k/uL (1.3-7.7); Neutrophils % (A) 88 %; RBC 3.91 m/uL (4.30-5.90); WBC 14.8 k/uL (3.8-10.6); WBC (Perox) 14.37
[2016-07-31 08:54] LABS: ALT 298 U/L (21-72); AST 131 U/L (17-59); Alkaline Phosphatase 242 U/L (38-126); Anion Gap 11 mmol/L; Blood Urea Nitrogen 21 mg/dL (9-20); Calcium 9.3 mg/dL (8.4-10.2); Carbon Dioxide 22 mmol/L (22-30); Chloride 104 mmol/L (98-107); Glucose 153 mg/dL (74-99); Non-African American GFR(MDRD) >60 (>60 ml/min/1.73 sqM); Potassium 5.3 mmol/L (3.5-5.1); Sodium 137 mmol/L (137-145); Total Bilirubin 0.7 mg/dL (0.2-1.3); Total Protein 6.4 g/dL (6.3-8.2)
[2016-07-31] MEDS ORDERED: VANCOMYCIN TROUGH DUE 1 EACH MISC MISCELLANE ONE (09:00)
[2016-07-31] MEDS: INSULIN LISPRO (humaLOG) 300 UNIT/3 ML VIAL SQ SCH ×4 (09:03→21:13)
[2016-07-31] MEDS: VANCOMYCIN 1,750 MG in SODIUM CHLORIDE 0.9% 250 ML IVPB SCH ×2 (09:11→21:15)
[2016-07-31] MEDS: glipiZIDE 5 MG TAB PO SCH ×2 (09:11→17:06)
[2016-07-31] MEDS: methylPREDNISolone SOD SUCCI 40 MG/ML 1 ML VIAL IV SCH (09:50)
[2016-07-31 10:51] LABS: Glucose,Whole Blood 114 mg/dL (75-99)
[2016-07-31] MEDS: predniSONE 20 MG TAB PO SCH (11:21)
--- NOTE | 2016-07-31 12:13 | PN ---
DATE OF SERVICE: 07/31/2016 Mr. Reynaldo Menchaca is a 60-year-old male, seen, evaluated, and examined on the fifth floor. Patient is breathing relatively more comfortably, continued to have issues such as chest discomfort and pain. Patient has been requiring narcotic agents including Dilaudid and [place] fairly on a regular basis. His cough and congestion are slightly better. Last set of vitals include blood pressure is 134/80, respiratory rate 20, pulse 78, temperature 97, saturating at 93%. HEENT: Unremarkable. NECK: Supple. LUNGS: Good air entry bilaterally. HEART: Regular rate and rhythm. Abdomen is soft. NEUROLOGICAL EXAMINATION: Otherwise, awake and alert. IMPRESSION: 1. Sepsis and pneumonia left lower lobe as well as base of the right lower lobe. 2. Large right-sided median sternal mass. 3. Severe chronic obstructive pulmonary disease. 4. Stage IV metastatic small cell cancer. Plan is to continue antibiotics, supportive care. Continue pain medications. Will follow clinical course closely. Further recommendations pending.
[2016-07-31 16:58] LABS: Glucose,Whole Blood 79 mg/dL (75-99)
[2016-07-31] MEDS ORDERED: HYDROcodone/APAP 10-325MG 1 EACH TAB PO PRN (18:01)
--- NOTE | 2016-07-31 18:01 | P.PN ---
Subjective Principal diagnosis: chest pain, SCLC Pt seen today in followup, he continues to c/o pain across the chest area, not progressive, no diaphoresis, numbness, nausea or vomiting, he has THOMAS, persistent, dry cough, denies diarrhea or constipation, he has had difficulty sleeping, is very tired and worse out, being this tired "makes everything worse ". Objective - Vital Signs Vital signs: Vital Signs Temp 97.4 F L 07/31/16 15:00 Pulse 78 07/31/16 15:00 Resp 20 07/31/16 15:00 BP 144/90 07/31/16 15:00 Pulse Ox 94 L 07/31/16 15:00 Intake & Output 07/30/16 07/31/16 07/31/16 18:59 06:59 18:59 Intake Total 830 785 Balance 830 785 Intake: IV 480 410 0.9 @ 20ML/HR 180 110 Cefepime 2 gm In Sodium 50 50 Chloride 0.9% 50 ml @ 100 mls/hr IVPB Q8HR [facility] Rx# :[id number] Vancomycin 1,750 mg In 250 250 Sodium Chloride 0.9% 250 ml @ 125 mls/hr IVPB Q12HR@1000,2200 [facility] Rx#: [id number] Oral 350 375 Other: Voiding Method Toilet # Voids 3 - Constitutional Constitutional Comment(s): pt gets shorter of breath the more he talks General appearance: Present: cooperative, mild distress, obese - Respiratory Respiratory: bilateral: diminished - Cardiovascular Heart sounds: normal: S1, S2 - Peripheral edema leg Peripheral Edema: bilateral: Trace - Gastrointestinal General gastrointestinal: Present: normal bowel sounds, soft - Integumentary Integumentary: Present: pale - Neurologic Neurologic: Present: CNII-XII intact - Musculoskeletal Musculoskeletal: Present: strength equal bilaterally - Psychiatric Psychiatric: Present: A&O x's 3, appropriate affect, intact judgment & insight - Labs CBC & Chem 7: 07/31/16 07:59 07/31/16 07:59 Labs: Abnormal Lab Results - Last 24 Hours (Table) 07/30/16 07/31/16 07/31/16 Range/Units 20:07 07:59 07:59 WBC 14.8 H (3.8-10.6) k/uL RBC 3.91 L (4.30-5.90) m/uL Hgb 11.5 L (13.0-17.5) gm/dL Hct 36.2 L (39.0-53.0) % RDW 16.0 H (11.5-15.5) % Neutrophils # 12.9 H (1.3-7.7) k/uL Lymphocytes # 0.9 L (1.0-4.8) k/uL Potassium 5.3 H (3.5-5.1) mmol/L BUN 21 H (9-20) mg/dL Glucose 153 H (74-99) mg/dL POC Glucose (mg/dL) 174 H (75-99) mg/dL AST 131 H (17-59) U/L ALT 298 H (21-72) U/L Alkaline Phosphatase 242 H (38-126) U/L 07/31/16 Range/Units 10:50 WBC (3.8-10.6) k/uL RBC (4.30-5.90) m/uL Hgb (13.0-17.5) gm/dL Hct (39.0-53.0) % RDW (11.5-15.5) % Neutrophils # (1.3-7.7) k/uL Lymphocytes # (1.0-4.8) k/uL Potassium (3.5-5.1) mmol/L BUN (9-20) mg/dL Glucose (74-99) mg/dL POC Glucose (mg/dL) 114 H (75-99) mg/dL AST (17-59) U/L ALT (21-72) U/L Alkaline Phosphatase (38-126) U/L Microbiology - Last 24 Hours (Table) 07/28/16 12:52 Blood Culture - Preliminary Blood No Growth after 72 hours 07/28/16 12:39 Blood Culture - Preliminary Blood No Growth after 72 hours Assessment and Plan (1) Small cell lung cancer Narrative/Plan: Metastatic small cell lung cancer to the liver. Patient is status post 6 cycles of carboplatin and etoposide. Patient has also had whole brain radiation for solitary left cerebellum lesion. Patient had open MRI scan scheduled at [facility] but due to to hospitalizations within the last few weeks this has had to be rescheduled. Patient will reschedule this appointment. This MRI is needed for patient to be qualified for clinical trial at [facility]. Patient has been evaluated by radiation oncology and pt has appt with Dr. Aly on 08/10, Dr. Jerez has left a message asking if radiation can start as there has been significant difficulty controlling pt symptoms. Status: Acute (2) SOB (shortness of breath) Narrative/Plan: Persistent, Status: Acute (3) Chest pain Narrative/Plan: Chest pain and shortness of breath are felt to be multi factorial including COPD , mass effect from the tumor, bronchospasm and it is also felt that there is a psychological component because when the patient becomes anxious the difficulty breathing exacerbates with subsequent chest pain. EKG on admit and previous have been negative for cardiac source as the cause for discomfort. [place] most likely to be related to mass in the chest, Rad Onc is seeing pt with plans to palliatively radiate the chest mass. Pain meds are being adjusted. Status: Chronic Plan: Chest pain and shortness of breath are felt to be multi factoral including COPD , mass effect from the tumor, bronchospasm and it is also felt that there is a psychological component because when the patient becomes anxious the difficulty breathing exacerbates with subsequent chest pain. Also from patient's description of onset of symptoms it sounds as though there is a degree of exercise intolerance. We will consult physical therapy to evaluate patient, may need pulmonary consult for medications if the patient is experiencing bronchospasm and exercise intolerance. He will be evaluated for oxygen. Patient's anxiety and pain medications will also be adjusted for comfort.
--- NOTE | 2016-07-31 18:54 | PN ---
DATE OF SERVICE: 07/31/2016 This 60-year-old gentleman who was admitted with COPD, acute exacerbation, also has significant lung cancer with some shortness of breath. Dr. Phillip is following the patient closely from the pulmonary point of view. No chest pain. No palpitation. No fever. On exam, alert and oriented x3. Pulse 78, blood pressure 130/88, respiration 20, temperature 96.9, pulse ox 92% on room air. HEENT: Conjunctivae normal. NECK: No jugular venous distention. CARDIOVASCULAR SYSTEM: S1, S2 muffled. RESPIRATORY SYSTEM: Breath sounds diminished at the bases. Bilateral scattered rhonchi and crackles. ABDOMEN: Soft, obese, nontender. LEGS: No edema. No swelling. NERVOUS SYSTEM: No focal deficit. LABS: WBC 14.8, hemoglobin 11.5. Sodium 137, potassium 5.3. ASSESSMENT: 1. Chronic obstructive pulmonary disease, acute exacerbation, with acute bilateral pneumonia, Gram-negative, with acute sepsis, present on admission. 2. Sepsis with acute hypoxic respiratory failure, present on admission. 3. Acute respiratory alkalosis. 4. Increased white count. 5. Anemia, normocytic. 6. Thrombocytopenia. 7. Obesity with a body mass index of 34. 8. History of recently diagnosed [id number] cancer with extensive mediastinal metastases, status post chemotherapy. 9. Mediastinal lymphadenopathy. 10. History of nicotine dependence. 11. Hypertension. 12. Hyperlipidemia. 13. Diabetes mellitus, type 2. 14. History of degenerative joint disease. 15. History of ethanol. 16. Increased plasma lactic acidosis, present on admission. 17. Increased AST, ALT. 18. FULL CODE. RECOMMENDATIONS AND DISCUSSION: I recommend to continue current medications, continue with the monitoring, symptomatic treatment. Otherwise, at this time I would recommend continuing the bronchodilators, tapering steroids. Closely follow. Patient also has a significant element of anxiety. The radiation therapist evaluated the patient for which is most likely outpatient. Closely follow with Dr. Jerez. Further recommendations to follow. [facility]
[2016-07-31] MEDS: ATORVASTATIN 20 MG TAB PO SCH (20:14)
[2016-07-31] MEDS: MORPHINE SULFATE ER 15 MG TABLET PO SCH (20:14)
[2016-07-31 20:48] LABS: Glucose,Whole Blood 106 mg/dL (75-99)
[2016-08-01 07:01] LABS: Glucose,Whole Blood 62 mg/dL (75-99)
[2016-08-01 07:22] LABS: Glucose,Whole Blood 68 mg/dL (75-99)
[2016-08-01 07:38] LABS: Glucose,Whole Blood 87 mg/dL (75-99)
[2016-08-01] MEDS: amLODIPine 10 MG TAB PO SCH (07:49)
[2016-08-01] MEDS: CEFEPIME 2 GM in SODIUM CHLORIDE 0.9% 50 ML IVPB SCH ×2 (07:49→17:59)
[2016-08-01] MEDS: MORPHINE SULFATE ER 15 MG TABLET PO SCH (07:49)
[2016-08-01] MEDS: FAMOTIDINE 20 MG TAB PO SCH (07:49)
[2016-08-01] MEDS: predniSONE 20 MG TAB PO SCH (07:49)
[2016-08-01] MEDS: LOSARTAN 50 MG TAB PO SCH (07:49)
[2016-08-01] MEDS: glipiZIDE 5 MG TAB PO SCH (07:49)
[2016-08-01 07:50] LABS: Basophils % (A) 0 %; CHCM 32.6; Eosinophils # (A) 0.1 k/uL (0-0.7); Eosinophils % (A) 0 %; HCT 37.4 % (39.0-53.0); HDW 2.35; HGB 12.1 gm/dL (13.0-17.5); Luc # (Auto) 0.14; Luc % (Auto) 1; Lymphocytes # (A) 1.7 k/uL (1.0-4.8); Lymphocytes % (A) 12 %; MCH 29.9 pg (25.0-35.0); MCHC 32.4 g/dL (31.0-37.0); MCV 92.4 fL (80.0-100.0); Mean Platelet Volume 7.9; Monocytes # (A) 0.9 k/uL (0-1.0); Monocytes % (A) 6 %; Neutrophils # (A) 11.9 k/uL (1.3-7.7); Neutrophils % (A) 81 %; RBC 4.05 m/uL (4.30-5.90); RDW 15.9 % (11.5-15.5); WBC 14.7 k/uL (3.8-10.6); WBC (Perox) 15.67
[2016-08-01] MEDS: CHLORPHEN-HYDROcod 8-10mg/5ml 5 ML ORAL.SYRG PO SCH (07:50)
[2016-08-01] MEDS: INSULIN LISPRO (humaLOG) 300 UNIT/3 ML VIAL SQ SCH ×3 (07:50→17:59)
[2016-08-01 08:07] LABS: ALT 359 U/L (21-72); AST 134 U/L (17-59); Alkaline Phosphatase 257 U/L (38-126); Anion Gap 13 mmol/L; Blood Urea Nitrogen 23 mg/dL (9-20); Calcium 9.5 mg/dL (8.4-10.2); Carbon Dioxide 23 mmol/L (22-30); Chloride 104 mmol/L (98-107); Glucose 68 mg/dL (74-99); Non-African American GFR(MDRD) >60 (>60 ml/min/1.73 sqM); Potassium 4.9 mmol/L (3.5-5.1); Sodium 140 mmol/L (137-145); Total Bilirubin 0.9 mg/dL (0.2-1.3); Total Protein 6.6 g/dL (6.3-8.2)
[2016-08-01] MEDS: LORazepam 0.5 MG TAB PO PRN ×2 (08:52→15:27)
[2016-08-01] MEDS: VANCOMYCIN 1,750 MG in SODIUM CHLORIDE 0.9% 250 ML IVPB SCH (08:52)
[2016-08-01] MEDS: IPRATROPIUM-ALBUTEROL 3 ML NEB INHALATION SCH ×2 (08:59→16:20)
[2016-08-01] MEDS: BUDESONIDE 0.5 MG/2 ML NEBU INHALATION SCH (08:59)
[2016-08-01] MEDS: FORMOTEROL FUMARATE 20 MCG/2 ML NEBU INHALATION SCH (08:59)
[2016-08-01 11:10] LABS: Glucose,Whole Blood 97 mg/dL (75-99)
--- NOTE | 2016-08-01 12:18 | PN ---
DATE OF SERVICE: 08/01/2016 Mr. Jose Juan Menchaca is a 60-year-old male who was seen, evaluated and examined. The patient has been admitted to the hospital with pneumonia, has a large mass in the mediastinal area, which patient has been treated with a small cell cancer and also which is stage IV with a history of radiation therapy to the brain mets. He is awake and alert and does have still some chest discomfort. Hemodynamic status is stable. Blood pressure 140/81, respiratory rate 20, pulse 85, temperature 97, sating 95%. HEENT: Unremarkable. NECK: Supple. LUNGS: Good air entry bilaterally. HEART: Regular rate and rhythm. ABDOMEN: Soft. NEUROLOGICAL EXAMINATION: Awake and alert. IMPRESSION: 1. Metastatic stage IV small cell cancer. 2. Large mediastinal mass and small cell cancer with feeling of pressure in the chest. 3. Left-sided pneumonia. 4. Generalized weakness and medical debility. Plan is to continue antibiotics, steroids, breathing treatments. Continue supportive care. Continue to continue space pain medications. Increase activity as tolerated.
--- NOTE | 2016-08-01 12:41 | P.PN ---
Subjective Principal diagnosis: chest pain, SCLC Pt seen today in follow up. He is nauseous when seen, stating difficulty breathing and pain across the chest, denies headache, numbness, tingling, diaphoresis or dizziness. Objective - Vital Signs Vital signs: Vital Signs Temp 97 F L 08/01/16 07:00 Pulse 83 08/01/16 09:17 Resp 20 08/01/16 07:00 BP 141/81 08/01/16 07:00 Pulse Ox 95 08/01/16 09:01 Intake & Output 07/31/16 08/01/16 08/01/16 18:59 06:59 18:59 Intake Total 785 490 Balance 785 490 Intake: IV 410 490 0.9 @ 20ML/HR 110 140 Cefepime 2 gm In Sodium 50 100 Chloride 0.9% 50 ml @ 100 mls/hr IVPB Q8HR [facility] Rx# :[id number] Vancomycin 1,750 mg In 250 250 Sodium Chloride 0.9% 250 ml @ 125 mls/hr IVPB Q12HR@1000,2200 [facility] Rx#: [id number] Oral 375 Other: Voiding Method Toilet - Exam Pt is able to have a conversation and answer questions, no diaphoresis, paleness - Constitutional General appearance: Present: cooperative, mild distress, obese - EENT Eyes: Present: anicteric sclerae - Respiratory Respiratory: bilateral: CTA - Cardiovascular Rhythm: regular Heart sounds: normal: S1, S2 Abnormal Heart Sounds: Absent: systolic murmur, diastolic murmur, rub, S3 Gallop , S4 Gallop, click, other - Peripheral edema leg Peripheral Edema: bilateral: None - Gastrointestinal General gastrointestinal: Present: normal bowel sounds, soft - Integumentary Integumentary: Present: normal turgor, pale - Neurologic Neurologic: Present: CNII-XII intact - Musculoskeletal Musculoskeletal: Present: generalized weakness - Psychiatric Psychiatric Comment(s): flat affect Psychiatric: Present: A&O x's 3, appropriate affect, intact judgment & insight - Labs CBC & Chem 7: 08/01/16 07:17 08/01/16 07:17 Labs: Abnormal Lab Results - Last 24 Hours (Table) 07/31/16 07/31/16 08/01/16 Range/Units 10:50 20:46 06:56 WBC (3.8-10.6) k/uL RBC (4.30-5.90) m/uL Hgb (13.0-17.5) gm/dL Hct (39.0-53.0) % RDW (11.5-15.5) % Neutrophils # (1.3-7.7) k/uL BUN (9-20) mg/dL Glucose (74-99) mg/dL POC Glucose (mg/dL) 114 H 106 H 62 L (75-99) mg/dL AST (17-59) U/L ALT (21-72) U/L Alkaline Phosphatase (38-126) U/L 08/01/16 08/01/16 08/01/16 Range/Units 07:16 07:17 07:17 WBC 14.7 H (3.8-10.6) k/uL RBC 4.05 L (4.30-5.90) m/uL Hgb 12.1 L (13.0-17.5) gm/dL Hct 37.4 L (39.0-53.0) % RDW 15.9 H (11.5-15.5) % Neutrophils # 11.9 H (1.3-7.7) k/uL BUN 23 H (9-20) mg/dL Glucose 68 L (74-99) mg/dL POC Glucose (mg/dL) 68 L (75-99) mg/dL AST 134 H (17-59) U/L ALT 359 H (21-72) U/L Alkaline Phosphatase 257 H (38-126) U/L Microbiology - Last 24 Hours (Table) 07/28/16 12:52 Blood Culture - Preliminary Blood No Growth after 72 hours 07/28/16 12:39 Blood Culture - Preliminary Blood No Growth after 72 hours Assessment and Plan (1) Small cell lung cancer Narrative/Plan: Metastatic small cell lung cancer to the liver. Patient is status post 6 cycles of carboplatin and etoposide. Patient has also had whole brain radiation for solitary left cerebellum lesion. Patient had open MRI scan scheduled at [facility] but due to to hospitalizations within the last few weeks this has had to be rescheduled. Patient will reschedule this appointment. This MRI is needed for patient to be qualified for clinical trial at [facility]. Rad Onc to see pt and possibly start palliative treatment sooner Status: Acute (2) SOB (shortness of breath) Narrative/Plan: Persistent, O2 on, saturation is WNL, nebulizers being provided, antianxiety meds seem to help Status: Acute (3) Chest pain Narrative/Plan: Telemetry ordered, Radiation Oncologist to see pt today, pain meds adjusted, anxiety medicine ordered. Pt being monitored closely. Status: Chronic
[2016-08-01 14:27] VITALS: BP 110/65; TEMP 97.5
[2016-08-01 16:34] VITALS: PULSE 82
--- NOTE | 2016-08-01 16:35 | XR ---
EXAMINATION TYPE: XR Hip Complete RT DATE OF EXAM ORDERED: 08/01/2016 4:28 PM HISTORY: Pain following trauma. COMPARISON: None. FINDINGS: There is degenerative change in the right hip with overgrowth of the acetabulum as well as a nonspherical femoral head. There is a small "bump" on the femoral neck. No fracture or dislocation is seen. No other acute osseous lesion is seen. IMPRESSION: 1. NO ACUTE OSSEOUS LESION. 2. PLEASE CORRELATE CLINICALLY FOR FEMOROACETABULAR IMPINGEMENT SYNDROME.
--- NOTE | 2016-08-01 16:35 | XR ---
EXAMINATION TYPE: XR knee complete RT DATE OF EXAM ORDERED: 08/01/2016 4:28 PM HISTORY: Pain following trauma. COMPARISON: None. FINDINGS: No fracture, dislocation or joint effusion is seen. IMPRESSION: NO ACUTE OSSEOUS LESION.
[2016-08-01 16:39] LABS: Glucose,Whole Blood 105 mg/dL (75-99)
--- NOTE | 2016-08-02 08:51 | DS ---
DATE OF ADMISSION: 07/26/2016 DATE OF DISCHARGE: 08/01/2016 The patient is a 60-year-old admitted with history of lung cancer is admitted with shortness of breath and patient is clinically doing well but patient is severely fatigued, probably because of the cancer ( ) by itself rather than chronic obstructive pulmonary disease and patient was treated for COPD. The patient is saturating well and is not requiring any home oxygen. Patient was seen and examined on the day of discharge. Vital signs stable. PHYSICAL EXAMINATION: GENERAL: The patient is alert and oriented x3, not in any acute distress. Well developed, well nourished. HEENT: Pupils are round and equally reacting to light. EOMI. No scleral icterus. No conjunctival pallor. Normocephalic, atraumatic. No pharyngeal erythema. No thyromegaly. CARDIOVASCULAR: S1 and S2 present. No murmurs, rubs, or gallops. PULMONARY: Chest is clear to auscultation, no wheezing or crackles. ABDOMEN: Soft, nontender, nondistended, normoactive bowel sounds. No palpable organomegaly. MUSCULOSKELETAL: No joint swelling or deformity. EXTREMITIES: No cyanosis, clubbing, or pedal edema. NEUROLOGICAL: Gross neurological examination did not reveal any focal deficits. SKIN: No rashes. FINAL DIAGNOSIS(ES): 1. Acute hypercapnic respiratory failure secondary to chronic obstructive pulmonary disease exacerbation. 2. Lung cancer with metastasis and pulmonology and oncology is recommending palliative radiation therapy. 3. Leukocytosis due to systemic steroids. 4. Type 2 diabetes mellitus. 5. Left-sided pneumonia and sepsis secondary to that. Patient will be discharged on Ceftin. I do not believe patient will need pseudomonal coverage at this point of time. Patient please refer to my depart summary for further details of discharge medications. DISCHARGE DIET: Regular. Activity as tolerated. Follow up with Dr. Gustavo Jerez in one week, ( ) primary care physician August 09 at 10:00 a.m. Her primary care physician is Dr. Luisana Klein. Patient will follow with Dr. Luisana Klein in 3 to 7 days. Activity as tolerated. We will set up home care for him. Patient will be discharged today on a tapering dose of steroids, inhalational treatments and Ceftin. Spent greater than 35 minutes in total discharge process.
== END 2016-08-01 18:25 | disposition home or self-care (01) | DRG 871 ==
LOC: EC 12:03 → 5MS5E 14:45 → 5ONC 07-27 17:38
PROVIDERS: ADMIT Hospitalist; ATTEND Hospitalist
DX: A41.9 Sepsis, unspecified organism (principal); J96.02 Acute respiratory failure with hypercapnia; J96.01 Acute respiratory failure with hypoxia; E87.4 Mixed disorder of acid-base balance; J15.6 Pneumonia due to other Gram-negative bacteria; C78.1 Secondary malignant neoplasm of mediastinum; J44.0 Chronic obstructive pulmonary disease with (acute) lower respiratory infection; C78.7 Secondary malignant neoplasm of liver and intrahepatic bile duct; C34.11 Malignant neoplasm of upper lobe, right bronchus or lung; D64.9 Anemia, unspecified; C79.31 Secondary malignant neoplasm of brain; J44.1 Chronic obstructive pulmonary disease with (acute) exacerbation; D69.6 Thrombocytopenia, unspecified; E11.9 Type 2 diabetes mellitus without complications; I11.9 Hypertensive heart disease without heart failure; E78.5 Hyperlipidemia, unspecified; F41.9 Anxiety disorder, unspecified; R41.3 Other amnesia; J98.01 Acute bronchospasm; R11.2 Nausea with vomiting, unspecified; G89.3 Neoplasm related pain (acute) (chronic); M19.90 Unspecified osteoarthritis, unspecified site; R63.0 Anorexia; T38.0X5A Adverse effect of glucocorticoids and synthetic analogues, initial encounter; R74.8 Abnormal levels of other serum enzymes; D72.829 Elevated white blood cell count, unspecified; R53.1 Weakness; Z88.0 Allergy status to penicillin; Z87.81 Personal history of (healed) traumatic fracture; Z87.01 Personal history of pneumonia (recurrent); Z92.3 Personal history of irradiation; Z87.891 Personal history of nicotine dependence; Z87.442 Personal history of urinary calculi; Z92.21 Personal history of antineoplastic chemotherapy; Z68.34 Body mass index [BMI] 34.0-34.9, adult; Z87.898 Personal history of other specified conditions; Z87.19 Personal history of other diseases of the digestive system; Z80.9 Family history of malignant neoplasm, unspecified; Z82.0 Family history of epilepsy and other diseases of the nervous system; Z98.42 Cataract extraction status, left eye; Z98.41 Cataract extraction status, right eye; Z79.84 Long term (current) use of oral hypoglycemic drugs; Z79.1 Long term (current) use of non-steroidal anti-inflammatories (NSAID); Z79.891 Long term (current) use of opiate analgesic; Z79.51 Long term (current) use of inhaled steroids; Z79.52 Long term (current) use of systemic steroids; Z79.899 Other long term (current) drug therapy
CPT/HCPCS: 36415; 36600; 71010; 71275; 73502; 80053; 80202; 81003; 82805; 83036; 83605; 83880; 84484; 85025; 85610; 85730; 87040; 87077; 87086; 87186; 93005; 94640; 94760; 99285

== ENCOUNTER 2016-08-18 00:59 | Inpatient (IN) | payer OTHER ==
[2016-08-18] MEDS ORDERED: SODIUM CHLORIDE 0.9% 1,000 ML IV ONE ×2 (02:03→02:58)
[2016-08-18] MEDS ORDERED: ONDANSETRON 4 MG/2 ML VIAL IVP STA ×2 (02:03→03:24)
[2016-08-18] MEDS ORDERED: MORPHINE SULFATE 10 MG/ML SYRINGE IVP STA (02:03)
--- NOTE | 2016-08-18 02:09 | ED ---
Nausea/Vomiting/Diarrhea HPI - General Source: patient, RN notes reviewed Mode of arrival: ambulatory Limitations: no limitations <Sharmila Johnston - Last Filed: 08/18/16 04:04> <Min Mccoy - Last Filed: 08/18/16 04:21> - General Chief complaint: Nausea/Vomiting/Diarrhea Stated complaint: ROEL,vomiting Time Seen by Provider: 08/18/16 01:45 - History of Present Illness Initial comments: Patient is a 60-year-old male presents the emergency room for evaluation of nausea and vomiting. Patient has stage IV lung cancer with metastases. Patient has been going through chemotherapy and radiation since November. Patient has been following up with oncologist, Dr. Jerez. Patient states that he is recently started on a new radiation regimen 4 days ago. Patient states over the past 4 days he has had increasing nausea and vomiting has been unable to keep anything down and take his medications. Patient denies any increasing pain or shortness of breath. Patient denies fevers. Patient states he was given nausea medication but he is unable to keep it down. (Sharmila Johnston) - Related Data Home Medications Medication Instructions Recorded Confirmed Losartan Potassium [Cozaar] 100 mg PO DAILY 09/08/15 08/18/16 amLODIPine BESYLATE [Norvasc] 10 mg PO DAILY 09/08/15 08/18/16 glipiZIDE [Glucotrol] 5 mg PO AC-BID 09/08/15 08/18/16 ALPRAZolam [Xanax] 0.25 mg PO Q8H PRN 07/09/16 08/18/16 Atorvastatin [Lipitor] 20 mg PO HS 07/09/16 08/18/16 Naproxen Sodium/P-Ephed HCl [Aleve 1 tab PO Q12H PRN 07/09/16 07/26/16 Cold and Sinus Caplet] Budesonide-Formot 160-4.5 Mcg 2 puff INHALATION RT-BID 07/26/16 08/18/16 [Symbicort 160-4.5 Mcg Inhaler] Ipratropium-Albuterol Nebulize 3 ml INHALATION RT-QID 07/26/16 08/18/16 [Duoneb 0.5 mg-3 mg/3 ml Soln] metFORMIN HCL [Glucophage] 500 mg PO BID 08/18/16 08/18/16 Previous Rx's Medication Instructions Recorded CHLORPHEN-HYDROcod 8-10mg/5ml 5 ml PO Q12HR #60 ml 07/12/16 [Tussionex] Cefuroxime Axetil [Ceftin] 500 mg PO BID #10 tab 08/01/16 HYDROcodone/APAP 10-325MG [Lorton 1 each PO Q4H PRN #30 tab 08/01/16 10-325] Morphine Sulfate ER [Ms Contin] 15 mg PO Q12HR #30 tablet 08/01/16 predniSONE 10 mg PO DAILY #30 tab 08/01/16 Allergies Allergy/AdvReac Type Severity Reaction Status Date / Time Penicillins AdvReac SEE COMMENT Verified 08/18/16 01:42 Review of Systems ROS Other: All systems not noted in ROS Statement are negative. <Sharmila Johnston - Last Filed: 08/18/16 04:04> ROS Other: All systems not noted in ROS Statement are negative. <Min Mccoy - Last Filed: 08/18/16 04:21> ROS Statement: Those systems with pertinent positive or pertinent negative responses have been documented in the HPI. 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, masses in abdomen that have been causing pain 2 primary tumors in abdomen, tumor pushes on heart, radiation ?5 weeks ago, chemo 07-08-16, short term memory loss since radiation History of Any Multi-Drug Resistant Organisms: None Reported Past Surgical History: Orthopedic Surgery Additional Past Surgical History / Comment(s): cystocopy and KIDNEY STONE REMOVED, ORIF Lt tibia, left knee arthroscopy x 2, rey cataracts,brochoscopy/bx , bx supraclavicular mass Past Anesthesia/Blood Transfusion Reactions: Postoperative Nausea & Vomiting ( PONV) Past Psychological History: No Psychological Hx Reported Smoking Status: Former smoker Past Alcohol Use History: None Reported, Heavy Additional Past Alcohol Use History / Comment(s): quit november 2016 Past Drug Use History: None Reported - Past Family History Mother Family Medical History: Cancer Father Additional Family Medical History / Comment(s): ALS <Sharmila Johnston - Last Filed: 08/18/16 04:04> General Exam Limitations: no limitations General appearance: alert, in no apparent distress Head exam: Present: atraumatic, normocephalic, normal inspection Eye exam: Present: normal appearance, PERRL, EOMI Pupils: Present: normal accommodation ENT exam: Present: normal exam Neck exam: Present: normal inspection Respiratory exam: Present: decreased breath sounds. Absent: respiratory distress Cardiovascular Exam: Present: regular rate, normal rhythm, normal heart sounds GI/Abdominal exam: Present: soft, normal bowel sounds. Absent: distended, tenderness, guarding, rebound, rigid Extremities exam: Present: normal inspection Back exam: Present: normal inspection Neurological exam: Present: alert, oriented X3, CN II-XII intact, normal gait Psychiatric exam: Present: normal affect, normal mood Skin exam: Present: warm, dry, intact, normal color. Absent: rash <Sharmila Johnston L - Last Filed: 08/18/16 04:04> General appearance: alert, in no apparent distress Head exam: Present: atraumatic, normocephalic, normal inspection Eye exam: Present: normal appearance, PERRL, EOMI. Absent: scleral icterus, conjunctival injection, periorbital swelling ENT exam: Present: normal exam, mucous membranes moist Neck exam: Present: normal inspection. Absent: tenderness, meningismus, lymphadenopathy Respiratory exam: Present: normal lung sounds bilaterally. Absent: respiratory distress, wheezes, rales, rhonchi, stridor Cardiovascular Exam: Present: regular rate, normal rhythm, normal heart sounds. Absent: systolic murmur, diastolic murmur, rubs, gallop, clicks GI/Abdominal exam: Present: soft, normal bowel sounds. Absent: distended, tenderness, guarding, rebound, rigid Extremities exam: Present: normal inspection, full ROM, normal capillary refill. Absent: tenderness, pedal edema, joint swelling, calf tenderness Back exam: Present: normal inspection Neurological exam: Present: alert, oriented X3, CN II-XII intact Psychiatric exam: Present: normal affect, normal mood Skin exam: Present: warm, dry, intact, normal color. Absent: rash <Min Mccoy B - Last Filed: 08/18/16 04:21> - General Exam Comments Initial Comments: Sitting in exam room, no acute distress. (Sharmila Johnston) Course <Sharmila Johnston - Last Filed: 08/18/16 04:04> <Min Mccoy - Last Filed: 08/18/16 04:21> Vital Signs 08/18/16 08/18/16 08/18/16 01:22 02:18 03:15 Temperature 97.7 F 97.6 F 97.5 F L Pulse Rate 100 96 96 Respiratory 24 18 18 Rate Blood Pressure 94/61 98/56 104/56 O2 Sat by Pulse 92 L 98 96 Oximetry - Reevaluation(s) Reevaluation #1: 08/18/16 04:21 Patient still with active nausea vomiting (Min Mccoy) Medical Decision Making - Lab Data Result diagrams: 08/18/16 01:50 08/18/16 01:50 - Radiology Data Radiology results: report reviewed, image reviewed <Sharmila Johnston - Last Filed: 08/18/16 04:04> - Lab Data Result diagrams: 08/18/16 01:50 08/18/16 01:50 <Min Mccoy - Last Filed: 08/18/16 04:21> - Medical Decision Making Patient is a 60-year-old male presents emergency room for evaluation of nausea and vomiting. Patient has stage IV lung cancer and has been going through radiation over the past 4 days. Case discussed with Dr. Mccoy. Will admit patient for fluid rehydration and nausea/pain control. No new findings in labs compared with past results. (Sharmila Johnston) 60 now here for evaluation tract with nausea and vomiting, nausea abnormality and dehydration. Patient be admitted for symptom control and resuscitation ( Min Mccoy) - Lab Data Lab Results 08/18/16 08/18/16 Range/Units 01:50 01:50 WBC 8.9 (3.8-10.6) k/uL RBC 4.48 (4.30-5.90) m/uL Hgb 13.6 (13.0-17.5) gm/dL Hct 41.8 (39.0-53.0) % MCV 93.4 (80.0-100.0) fL MCH 30.3 (25.0-35.0) pg MCHC 32.5 (31.0-37.0) g/dL RDW 17.2 H (11.5-15.5) % Plt Count 226 (150-450) k/uL Neutrophils % 87 % Lymphocytes % 7 % Monocytes % 4 % Eosinophils % 1 % Basophils % 0 % Neutrophils # 7.7 (1.3-7.7) k/uL Lymphocytes # 0.6 L (1.0-4.8) k/uL Monocytes # 0.4 (0-1.0) k/uL Eosinophils # 0.0 (0-0.7) k/uL Basophils # 0.0 (0-0.2) k/uL Anisocytosis Slight Sodium 144 (137-145) mmol/L Potassium 5.4 H (3.5-5.1) mmol/L Chloride 107 (98-107) mmol/L Carbon Dioxide 17 L (22-30) mmol/L Anion Gap 20 mmol/L BUN 45 H (9-20) mg/dL Creatinine 2.50 H (0.66-1.25) mg/dL Est GFR (MDRD) Af Amer 32 (>60 ml/min/1.73 sqM) Est GFR (MDRD) Non-Af 26 (>60 ml/min/1.73 sqM) Glucose 80 (74-99) mg/dL Calcium 9.9 (8.4-10.2) mg/dL Magnesium 2.4 H (1.6-2.3) mg/dL Total Bilirubin 1.8 H (0.2-1.3) mg/dL AST 74 H (17-59) U/L ALT 126 H (21-72) U/L Alkaline Phosphatase 372 H (38-126) U/L Total Protein 7.0 (6.3-8.2) g/dL Albumin 4.1 (3.5-5.0) g/dL Disposition Decision Date: 08/18/16 <Sharmila Johnston - Last Filed: 08/18/16 04:04> <Min Mccoy - Last Filed: 08/18/16 04:21> Clinical Impression: Dehydration, Lung cancer, Nausea and vomiting Disposition: ADMITTED IP TO THIS [facility] Condition: Stable Referrals: Luisana Klein MD [Primary Care Provider] - 1-2 days
[2016-08-18 02:23] LABS: Anisocytosis Slight; Basophils % (A) 0 %; CH 30.5; CHCM 32.8; Eosinophils % (A) 1 %; HCT 41.8 % (39.0-53.0); HDW 2.29; HGB 13.6 gm/dL (13.0-17.5); Luc # (Auto) 0.14; Luc % (Auto) 2; Lymphocytes # (A) 0.6 k/uL (1.0-4.8); Lymphocytes % (A) 7 %; MCH 30.3 pg (25.0-35.0); MCHC 32.5 g/dL (31.0-37.0); MCV 93.4 fL (80.0-100.0); Mean Platelet Volume 7.5; Monocytes # (A) 0.4 k/uL (0-1.0); Monocytes % (A) 4 %; Neutrophils # (A) 7.7 k/uL (1.3-7.7); Neutrophils % (A) 87 %; RBC 4.48 m/uL (4.30-5.90); RDW 17.2 % (11.5-15.5); WBC 8.9 k/uL (3.8-10.6)
[2016-08-18 02:33] LABS: Calcium 9.9 mg/dL (8.4-10.2); Magnesium 2.4 mg/dL (1.6-2.3); Potassium 5.4 mmol/L (3.5-5.1); Total Bilirubin 1.8 mg/dL (0.2-1.3)
--- NOTE | 2016-08-18 02:38 | XR ---
EXAMINATION TYPE: XR KUB DATE OF EXAM: 08/18/2016 2:29 AM COMPARISON: 11/25/2015 HISTORY: Vomiting TECHNIQUE: 2 views FINDINGS: There is no sign of intestinal obstruction or pneumoperitoneum. Fecal pattern is normal. Th ere are no pathologic calcifications over the kidneys. There is no sign of a mass. IMPRESSION: Nonacute abdomen. No change.
[2016-08-18] MEDS ORDERED: HYDROmorphone 1 MG/ML 1 ML SYRINGE IVP STA (03:24)
[2016-08-18] MEDS ORDERED: ONDANSETRON 4 MG/2 ML VIAL IVP PRN (03:24)
[2016-08-18] MEDS ORDERED: NALOXONE 0.4 MG/ML 1 ML VIAL IV PRN (03:24)
[2016-08-18] MEDS ORDERED: HYDROmorphone 1 MG/ML 1 ML SYRINGE IV PRN (03:24)
[2016-08-18] MEDS ORDERED: ALPRAZolam 0.25 MG TAB PO PRN (03:26)
[2016-08-18] MEDS ORDERED: diphenhydrAMINE 50 MG/ML 1 ML VIAL IVP PRN (05:14)
[2016-08-18] MEDS ORDERED: LORazepam 2 MG/ML SYRINGE IV PRN (05:14)
[2016-08-18] MEDS: SODIUM CHLORIDE 0.9% 1,000 ML IV SCH ×2 (05:30→11:47)
[2016-08-18] MEDS: METOCLOPRAMIDE 5 MG/ML 2 ML VIAL IVP SCH ×4 (05:33→23:15)
[2016-08-18 07:25] LABS: Glucose,Whole Blood 76 mg/dL (75-99)
[2016-08-18] MEDS: INSULIN LISPRO (humaLOG) 300 UNIT/3 ML VIAL SQ SCH ×4 (07:30→20:36)
[2016-08-18] MEDS: IPRATROPIUM-ALBUTEROL 3 ML NEB INHALATION SCH ×4 (08:00→20:50)
[2016-08-18] MEDS: amLODIPine 10 MG TAB PO SCH (09:00)
[2016-08-18] MEDS: predniSONE 10 MG TAB PO SCH (09:02)
[2016-08-18 11:20] VITALS: BMI 29.5
[2016-08-18 11:43] LABS: Glucose,Whole Blood 79 mg/dL (75-99)
[2016-08-18] MEDS ORDERED: HYDROcodone/APAP 10-325MG 1 EACH TAB PO PRN (11:59)
[2016-08-18 12:09] LABS: Anisocytosis Slight; Basophils # (A) 0.1 k/uL (0-0.2); Basophils % (A) 1 %; CH 30.2; CHCM 31.3; Eosinophils # (A) 0.1 k/uL (0-0.7); Eosinophils % (A) 1 %; HCT 39.6 % (39.0-53.0); HDW 2.21; HGB 12.4 gm/dL (13.0-17.5); Luc # (Auto) 0.13; Luc % (Auto) 2; Lymphocytes # (A) 0.6 k/uL (1.0-4.8); Lymphocytes % (A) 8 %; MCH 30.2 pg (25.0-35.0); MCHC 31.2 g/dL (31.0-37.0); MCV 96.8 fL (80.0-100.0); Macrocytosis Slight; Mean Platelet Volume 7.4; Monocytes # (A) 0.4 k/uL (0-1.0); Monocytes % (A) 5 %; Neutrophils % (A) 84 %; RBC 4.09 m/uL (4.30-5.90); RDW 17.1 % (11.5-15.5); WBC 7.1 k/uL (3.8-10.6); WBC (Perox) 7.89
[2016-08-18 12:22] LABS: Calcium 9.1 mg/dL (8.4-10.2); Potassium 5.4 mmol/L (3.5-5.1); Total Bilirubin 1.5 mg/dL (0.2-1.3); Total Protein 6.4 g/dL (6.3-8.2)
--- NOTE | 2016-08-18 14:28 | HP ---
DATE OF ADMISSION: The patient is a 60-year-old who came in with complaints of nausea and vomiting, multiple episodes and patient was found to be in renal failure with elevated BUN and creatinine. Patient's baseline creatinine 0.8, now around 2.5 and patient's potassium has gone up to 5.4. Patient is admitted for IV fluid hydration. Patient's nausea, vomiting did improve. Patient has lung cancer with metastasis and patient is presently receiving radiation therapy. He started having nausea, vomiting since yesterday, multiple episodes yesterday. Denied any abdominal pain, denied any diarrhea. Denied any fever, chills. Denied any dysuria, cough, runny nose and denied any flu-like symptoms. REVIEW OF SYSTEMS: CONSTITUTIONAL: No fever, no malaise, no fatigue. HEENT: No recent visual problems or hearing problems. Denied any sore throat. CARDIOVASCULAR: No chest pain, orthopnea, PND, no palpitations, no syncope. PULMONARY: No shortness of breath, no cough, no hemoptysis. GASTROINTESTINAL: As described in HPI. NEUROLOGICAL: No headaches, no weakness, no numbness. HEMATOLOGICAL: Denies any bleeding or petechiae. GENITOURINARY: Denies any burning micturition, frequency, or urgency. MUSCULOSKELETAL/RHEUMATOLOGICAL: Denies any joint pain, swelling, or any muscle pain. ENDOCRINE: Denies any polyuria or polydipsia. The rest of the 14 point review of systems is negative. Home medications include: 1. Losartan. 2. Amlodipine. 3. Glipizide. 4. Alprazolam. 5. Atorvastatin. 6. Naproxen. 7. Budesonide formoterol 8. Ipratropium albuterol. 9. Metformin. 10. Ceftin. 11. Hydrocodone acetaminophen. 12. Morphine. 13. Prednisone. I am not sure why patient is on Ceftin. ALLERGIES: Allergic to PENICILLINS. Past medical history is significant for lung cancer, receiving radiation therapy, COPD, diabetes mellitus, hyperlipidemia, hypertension, pneumonias in the past. SOCIAL HISTORY: Former smoker. Quit smoking in November 2015. Denied any alcohol abuse or any drug abuse. FAMILY HISTORY: Mother had cancer. Father had amyotrophic lateral sclerosis. PHYSICAL EXAMINATION: Temperature 96.9, pulse of 88, respiratory rate of 16, blood pressure is 106/67, saturating at 92% on room air. GENERAL: The patient is alert and oriented x3, not in any acute distress. Well developed, well nourished. HEENT: Pupils are round and equally reacting to light. EOMI. No scleral icterus. No conjunctival pallor. Normocephalic, atraumatic. No pharyngeal erythema. No thyromegaly. CARDIOVASCULAR: S1 and S2 present. No murmurs, rubs, or gallops. PULMONARY: Chest is clear to auscultation, no wheezing or crackles. ABDOMEN: Soft, nontender, nondistended, normoactive bowel sounds. No palpable organomegaly. MUSCULOSKELETAL: No joint swelling or deformity. EXTREMITIES: No cyanosis, clubbing, or pedal edema. NEUROLOGICAL: Gross neurological examination did not reveal any focal deficits. SKIN: No rashes. LABORATORY DATA: CBC, CMP are abnormal for elevated potassium of 5.4, bicarbonate of 17, which has come up to 20, BUN of 45, creatinine of 2.27, total bili of 1.5, AST 62 and ALT is 115, fairly stable at that level. Minimal elevation is probably due to metastatic lung cancer. ASSESSMENT AND PLAN: 1. Nausea, vomiting secondary to radiation therapy. 2. Acute renal failure secondary to excessive nausea, vomiting and low bicarbonate is secondary to bicarbonate losses from GI. 3. Intravascular volume depletion leading to metabolic acidosis and patient will be on IV fluids, because of hyperchloremia changing to lactated Ringer's at 125 mL per hour. 4. Lung cancer. 5. Diabetes mellitus, hold off on oral hypoglycemic agents including metformin because of renal dysfunction. 6. Hypertension. Hold off losartan because of hyperkalemia. 7. Hyperkalemia secondary to losartan and acute renal failure. Basically IV fluid hydration. Hold off on those medications. Monitor liver function testing, make sure LFTs are not going up tomorrow.
[2016-08-18 14:33] LABS: Hemoglobin A1C 6.2 % (4.2-6.1)
[2016-08-18] MEDS: LACTATED RINGERS 1,000 ML IV SCH ×2 (15:41→20:40)
[2016-08-18 16:59] LABS: Glucose,Whole Blood 111 mg/dL (75-99)
--- NOTE | 2016-08-18 20:16 | CONS ---
DATE OF CONSULTATION: August 18, 2016. REASON FOR CONSULTATION: Lung cancer. CHIEF COMPLAINT: Nausea and vomiting. Reynaldo is a very pleasant 60-year-old gentleman, very well-known to our practice. He has been under the care of Dr. Jerez. He was initially diagnosed in November 2015 with small cell lung cancer. The patient initially presented with right-sided upper abdominal pain which has been getting progressively worse associated with 20 pounds weight loss. He had a CT scan of his abdomen which revealed extensive liver metastases and mediastinal adenopathy, the largest in the right paratracheal area measuring 8 almost 9 cm in size. He did eventually end up having biopsy of the right supraclavicular node, which was positive for small cell carcinoma of the lung carcinoma and his initial brain CAT scan was negative. The patient was started on systemic chemotherapy with a combination of carboplatin and GEOLOGY TEACHER-16 on 12/07/2015. He received four cycles and then he was referred to [facility] for potential clinical trial. However, they recommended to continue with the current regimen and he received cycle number five in February 2016. However shortly after that, then he had restaging work-up done for potential participation in clinical trial. He had a brain MRI on 05/03/2016 which revealed a new 1 cm lesion in the left cerebellum. The patient underwent whole brain radiation therapy completed on 05/29/2016 and then he received today his cycle #6 of systemic treatment completed on 06/07/2016. His recent imaging study however revealed further disease progression in his mediastinal lymph node and because of significant dysphagia and shortness of breath he was referred to start radiation therapy, which was started on 08/13/2016. The patient presented to the emergency department yesterday with progressive nausea, vomiting and inability to keep food down and he was found to be dehydrated and he ended up being admitted to the hospital. He feels overall tired. He is nauseated. He could not keep anything down for the last couple of days. He stated that he has lost about 50 pounds within the last month or so. He denies any fever or chills. No melena, hematochezia, hematuria, hemoptysis, hematemesis or epistaxis. No headaches. PAST MEDICAL HISTORY: In addition to what is stated above in regard to his lung carcinoma, he has history of kidney stones but otherwise negative. History of hypertension and hyperlipidemia. SOCIAL HISTORY: He used to smoke. He quit in November 2015. No alcohol abuse or substance abuse. ALLERGIES: No known drug allergies. FAMILY HISTORY: For malignancy. His mother had colon cancer. Current medications include: 1. Hydrocodone 10 every 4 hours as needed. 2. Albuterol inhaler as needed. 3. Xanax 0.25 mg every 8 hours as needed. 4. Norvasc 10 mg daily. 5. Atrovent 20 mg q.h.s. 6. Symbicort b.i.d. 7. Benadryl 25 mg as needed. 8. Dilaudid 1 mg IV every 3 hours as needed. 9. Humalog sliding scale. 10. Ativan 1 mg every 6 hours as needed. 11. Reglan 10 mg IV q.6h. 12. MS Contin 15 mg q.12h. 13. Zofran 4 mg IV every 8 hours as needed. 14. Protonix 40 mg IV daily. 15. Prednisone 10 mg daily. PHYSICAL EXAMINATION: He is alert and oriented x3. Does not appear to be in distress at this point in time. VITAL SIGNS: Temperature 96.4, afebrile, pulse is 88 and regular, respiration 16, blood pressure 106/67, pulse ox is 92% on room air. HEENT: Normocephalic, atraumatic. No obvious icterus. NECK: Supple. He has a palpable large right supraclavicular node. Chest equal expansion bilaterally. LUNGS: Revealed decreased breath sounds at both bases. He has scattered rhonchi. HEART: Regular rate and rhythm. ABDOMEN: Soft, has mild epigastric tenderness. The liver is enlarged. EXTREMITIES: Reveal no edema. SKIN: A few bruises. No ecchymosis or petechiae. LYMPHATIC: He has a large about 4 cm right supraclavicular node. MUSCULOSKELETAL: Moving all extremities appropriately. There is no percussion tenderness detected over his spine or his sternum. Laboratory data: WBC of 7.1, hemoglobin 12.4, hematocrit 39.6, platelets are 200, sodium 145, potassium 5.4, chloride 109, CO2 is 20. BUN 45, creatinine is 2.26. Total bilirubin 1.5. AST 62, ALT 115, alkaline phosphatase is 318. IMPRESSION: 1. Persistent nausea or vomiting likely related to radiation therapy and extensive mediastinal adenopathy. 2. Acute renal failure related to nausea or vomiting and in fact, his creatinine back in March 2016 was normal at 0.9. 3. Extensive stage small cell lung carcinoma with recent progression with diagnostic and therapeutic circumstances as stated above. RECOMMENDATIONS: 1. Continue IV hydration. 2. Continue current and antiemetics. The patient seems to be slowly improving. 3. Radiation therapy is on hold until the patient's nausea and vomiting improves. 4. Overall prognosis is felt to be very guarded. The above was discussed with the patient and I have answered all his questions to his satisfaction. Thank you very much for asking me to participate in the care of this nice gentleman.
[2016-08-18] MEDS: MORPHINE SULFATE ER 15 MG TABLET PO SCH (20:33)
[2016-08-18] MEDS: ATORVASTATIN 20 MG TAB PO SCH (20:35)
[2016-08-18 20:48] LABS: Glucose,Whole Blood 96 mg/dL (75-99)
[2016-08-18] MEDS: SYMBICORT 160-4.5 MCG INHALER INHALATION SCH (20:50)
[2016-08-19] MEDS: LACTATED RINGERS 1,000 ML IV SCH ×3 (03:41→21:36)
[2016-08-19] MEDS: METOCLOPRAMIDE 5 MG/ML 2 ML VIAL IVP SCH ×3 (05:45→17:27)
[2016-08-19 07:30] LABS: Glucose,Whole Blood 84 mg/dL (75-99)
[2016-08-19] MEDS: INSULIN LISPRO (humaLOG) 300 UNIT/3 ML VIAL SQ SCH ×4 (07:35→21:34)
[2016-08-19 07:48] LABS: Anisocytosis Slight; CH 30.4; CHCM 32.1; HCT 36.4 % (39.0-53.0); HDW 2.27; HGB 11.8 gm/dL (13.0-17.5); MCH 30.9 pg (25.0-35.0); MCHC 32.5 g/dL (31.0-37.0); MCV 95.2 fL (80.0-100.0); Mean Platelet Volume 8.3; RBC 3.82 m/uL (4.30-5.90); RDW 17.1 % (11.5-15.5); WBC 5.3 k/uL (3.8-10.6)
[2016-08-19] MEDS: PANTOPRAZOLE 40 MG/10 ML VIAL IVP SCH (07:59)
[2016-08-19] MEDS: predniSONE 10 MG TAB PO SCH (07:59)
[2016-08-19] MEDS: amLODIPine 10 MG TAB PO SCH (07:59)
[2016-08-19] MEDS: MORPHINE SULFATE ER 15 MG TABLET PO SCH ×2 (07:59→21:33)
[2016-08-19 08:16] LABS: Calcium 9.1 mg/dL (8.4-10.2); Potassium 4.7 mmol/L (3.5-5.1); Total Bilirubin 1.6 mg/dL (0.2-1.3); Total Protein 5.9 g/dL (6.3-8.2)
[2016-08-19] MEDS: IPRATROPIUM-ALBUTEROL 3 ML NEB INHALATION SCH ×4 (08:28→20:57)
[2016-08-19] MEDS: SYMBICORT 160-4.5 MCG INHALER INHALATION SCH ×2 (08:28→20:57)
[2016-08-19 12:22] LABS: Glucose,Whole Blood 101 mg/dL (75-99)
[2016-08-19 17:13] LABS: Glucose,Whole Blood 98 mg/dL (75-99)
--- NOTE | 2016-08-19 19:23 | DS ---
DATE OF ADMISSION: 08/18/2016 DATE OF DISCHARGE: PROGRESS NOTE/DISCHARGE SUMMARY: This dictation is both progress note/discharge summary. 60-year-old admitted with nausea, vomiting secondary to radiation therapy and patient's symptoms of nausea, vomiting improved. Diarrhea, improved, and patient kidney function improved with IV fluids and although it is not normalized yet, because of which I am going to hold off on his LAURA inhibitor and the patient's blood pressures are normal in spite of holding off his LAURA inhibitor for more than a day. Patient is also diabetic but his blood sugars are in the 80s and 90s all throughout the day and we will advance the diet now and since his kidney function has not normalized yet, I believe it is better to hold off his glipizide as well as metformin. His creatinine is 1.51, baseline is around 0.8. He came in with 2.5 and the patient will check his blood sugars and we will follow up with Dr. Luisana Klein in 3 to 7 days. At that time if his blood sugars continues to be elevated he may need to be restarted back. If his kidney function normalizes. If his kidney function does not normalize, patient will be a candidate for Januvia or related medications. At that time, sulfonuria or metformin is not a good idea. At this time, patient is clinically doing well. If patient is able to tolerate soft diet, patient will be discharged today. Otherwise, the patient will continue with IV fluids resuscitation and keep him one more day if patient is not able to tolerate soft diet. REVIEW OF SYSTEMS: Continued nausea. CARDIOVASCULAR: No chest pain, no orthopnea, no PND, no palpitations. PULMONARY: Denied any shortness of breath. No cough or hemoptysis. GASTROINTESTINAL: No diarrhea, nausea or vomiting. No abdominal pain. Normoactive bowel sounds. NEUROLOGIC: No headaches, no weakness, no numbness. Medications were reviewed and medication reconciliation as mentioned earlier. PHYSICAL EXAMINATION: VITAL SIGNS: Temperature 97.5, pulse of 100, respiratory rate of 20. Blood pressure is 124/69, saturating at 95% on room air. GENERAL: Alert and oriented x3, morbidly obese. HEENT: Pupils are round and equally reacting to light. EOMI. No scleral icterus. No conjunctival pallor. Normocephalic, atraumatic. No pharyngeal erythema. No thyromegaly. CARDIOVASCULAR: S1 and S2 present. No murmurs, rubs, or gallops. PULMONARY: Chest is clear to auscultation, no wheezing or crackles. ABDOMEN: Soft, nontender, nondistended, normoactive bowel sounds. No palpable organomegaly. MUSCULOSKELETAL: No joint swelling or deformity. EXTREMITIES: No cyanosis, clubbing, or pedal edema. NEUROLOGICAL: Gross neurological examination did not reveal any focal deficits. SKIN: No rashes. LABORATORY DATA: Creatinine improved to 1.5 as mentioned above, BUN to 34, bilirubin is 1.6, mildly elevated ALT but fairly stable compared to yesterday. No further intervention at this point of time. Fairly stable AST. ASSESSMENT AND PLAN: 1. Nausea, vomiting, secondary to radiation therapy. 2. Acute renal failure secondary to excessive nausea, vomiting, improved creatinine with IV fluid resuscitation. 3. Intravascular volume depletion leading to metabolic acidosis and acute renal failure both of which improved IV fluids. 4. History of lung cancer, is receiving radiation therapy at this point of time. 5. Type 2 diabetes mellitus, management as mentioned above. 6. Hypertension. 7. Hyperkalemia. Please refer to my depart summary for further details of discharge medications and patient will follow with Dr. Luisana Klein if he is discharged today in 3 to 5 days. Activity as tolerated. BMP needs to be tested in the clinic upon his discharge. Cardiac and ADA 1800 calorie diet. Spent greater than 35 minutes in total discharge process.
[2016-08-19 21:11] LABS: Glucose,Whole Blood 89 mg/dL (75-99)
[2016-08-19] MEDS: ATORVASTATIN 20 MG TAB PO SCH (21:33)
[2016-08-20] MEDS: METOCLOPRAMIDE 5 MG/ML 2 ML VIAL IVP SCH ×2 (00:10→05:26)
[2016-08-20] MEDS: LACTATED RINGERS 1,000 ML IV SCH (05:27)
[2016-08-20] MEDS: PANTOPRAZOLE 40 MG/10 ML VIAL IVP SCH (07:52)
[2016-08-20] MEDS: predniSONE 10 MG TAB PO SCH (07:52)
[2016-08-20 07:54] LABS: Glucose,Whole Blood 76 mg/dL (75-99)
[2016-08-20] MEDS: MORPHINE SULFATE ER 15 MG TABLET PO SCH (07:54)
[2016-08-20] MEDS: INSULIN LISPRO (humaLOG) 300 UNIT/3 ML VIAL SQ SCH (07:56)
[2016-08-20 08:08] VITALS: BP 125/81; RESP 17; TEMP 97.4
[2016-08-20] MEDS: IPRATROPIUM-ALBUTEROL 3 ML NEB INHALATION SCH (08:29)
[2016-08-20] MEDS: SYMBICORT 160-4.5 MCG INHALER INHALATION SCH (08:29)
[2016-08-20 08:32] VITALS: PULSE 88
[2016-08-20] MEDS: amLODIPine 10 MG TAB PO SCH (09:44)
[2016-08-20 11:39] LABS: ALT 127 U/L (21-72); AST 92 U/L (17-59); Alkaline Phosphatase 348 U/L (38-126); Anion Gap 11 mmol/L; Blood Urea Nitrogen 21 mg/dL (9-20); Calcium 9.1 mg/dL (8.4-10.2); Carbon Dioxide 20 mmol/L (22-30); Chloride 109 mmol/L (98-107); Glucose 95 mg/dL (74-99); Non-African American GFR(MDRD) >60 (>60 ml/min/1.73 sqM); Potassium 4.7 mmol/L (3.5-5.1); Sodium 140 mmol/L (137-145); Total Bilirubin 1.7 mg/dL (0.2-1.3)
--- NOTE | 2016-08-21 12:53 | DS ---
DATE OF ADMISSION: 08/18/2016 DATE OF DISCHARGE: 08/20/2016 Patient is a 60-year-old admitted with nausea, vomiting and resulting in acute renal failure, which improved. Patient's creatinine has come down to 1.06. Patient was discharged by me yesterday, but patient ended up staying here, because of which I repeated comprehensive metabolic profile again and saw and evaluated the patient. His liver enzymes are fairly stable, although there is minimal elevation, not high enough to be concerned about, but this needs to be reviewed as an outpatient. His kidney function did improve and creatinine came down to 1.06 from 2.50 a couple days ago. Please refer to my discharge summary from yesterday. Consider my yesterday's discharge summary as progress note. PHYSICAL EXAMINATION: Patient's vital signs are stable. GENERAL: The patient is alert and oriented x3, not in any acute distress. Well developed, well nourished. HEENT: Pupils are round and equally reacting to light. EOMI. No scleral icterus. No conjunctival pallor. Normocephalic, atraumatic. No pharyngeal erythema. No thyromegaly. CARDIOVASCULAR: S1 and S2 present. No murmurs, rubs, or gallops. PULMONARY: Chest is clear to auscultation, no wheezing or crackles. ABDOMEN: Soft, nontender, nondistended, normoactive bowel sounds. No palpable organomegaly. MUSCULOSKELETAL: No joint swelling or deformity. EXTREMITIES: No cyanosis, clubbing, or pedal edema. NEUROLOGICAL: Gross neurological examination did not reveal any focal deficits. SKIN: No rashes. For further details please refer to my discharge summary from yesterday.
== END 2016-08-20 11:42 | disposition home or self-care (01) | DRG 683 ==
LOC: EC 00:59 → 4MS4W 04:21
PROVIDERS: ADMIT Hospitalist; ATTEND Hospitalist
DX: N17.9 Acute kidney failure, unspecified (principal); C34.90 Malignant neoplasm of unspecified part of unspecified bronchus or lung; C78.7 Secondary malignant neoplasm of liver and intrahepatic bile duct; E87.2 Acidosis; E87.8 Other disorders of electrolyte and fluid balance, not elsewhere classified; R13.10 Dysphagia, unspecified; T66.XXXA Radiation sickness, unspecified, initial encounter; E87.5 Hyperkalemia; E86.0 Dehydration; I10 Essential (primary) hypertension; E11.9 Type 2 diabetes mellitus without complications; E78.5 Hyperlipidemia, unspecified; J44.9 Chronic obstructive pulmonary disease, unspecified; K57.90 Diverticulosis of intestine, part unspecified, without perforation or abscess without bleeding; M19.90 Unspecified osteoarthritis, unspecified site; T46.5X5A Adverse effect of other antihypertensive drugs, initial encounter; Z79.84 Long term (current) use of oral hypoglycemic drugs; Z79.52 Long term (current) use of systemic steroids; Z79.899 Other long term (current) drug therapy; Z87.891 Personal history of nicotine dependence; Y92.009 Unspecified place in unspecified non-institutional (private) residence as the place of occurrence of the external cause; Y84.2 Radiological procedure and radiotherapy as the cause of abnormal reaction of the patient, or of later complication, without mention of misadventure at the time of the procedure
CPT/HCPCS: 36415; 74000; 80053; 83036; 83735; 85025; 85027; 94640; 96361; 96374; 96375; 96376; 99285

== ENCOUNTER 2016-08-28 02:20 | Emergency (ER) | payer OTHER ==
[2016-08-28] MEDS ORDERED: SODIUM CHLORIDE 0.9% 500 ML IV STA (03:11)
[2016-08-28] MEDS ORDERED: MORPHINE SULFATE 4 MG/ML SYRINGE IV STA (03:11)
[2016-08-28] MEDS ORDERED: METOCLOPRAMIDE 5 MG/ML 2 ML VIAL IVP STA (03:11)
[2016-08-28] MEDS ORDERED: SODIUM CHLORIDE 0.9% 1,000 ML IV STA (03:11)
--- NOTE | 2016-08-28 03:15 | ED ---
General Adult HPI - General Chief complaint: Nausea/Vomiting/Diarrhea Stated complaint: SOB/Hx Lung CA Time Seen by Provider: 08/28/16 02:35 Source: patient, family, RN notes reviewed Mode of arrival: ambulatory Limitations: no limitations - History of Present Illness Initial comments: Patient is a pleasant 60-year-old male presenting to the emergency Department with vomiting. Patient has a history of stage IV lung cancer. Patient has undergone chemotherapy twice and radiation. Patient is currently on another treatment regimen for radiation. This time it is his chest and neck. Patient does have some difficulty in breathing and chest pain. This has been persistent for over a month. Patient has decreased oral intake. Patient has occasional vomiting, worse today. - Related Data Home Medications Medication Instructions Recorded Confirmed amLODIPine BESYLATE [Norvasc] 10 mg PO DAILY 09/08/15 08/18/16 ALPRAZolam [Xanax] 0.25 mg PO Q8H PRN 07/09/16 08/18/16 Atorvastatin [Lipitor] 20 mg PO HS 07/09/16 08/18/16 Budesonide-Formot 160-4.5 Mcg 2 puff INHALATION RT-BID 07/26/16 08/18/16 [Symbicort 160-4.5 Mcg Inhaler] Ipratropium-Albuterol Nebulize 3 ml INHALATION RT-QID 07/26/16 08/18/16 [Duoneb 0.5 mg-3 mg/3 ml Soln] HYDROcodone/APAP 10-325MG [[place] 1 tab PO Q4H PRN 08/18/16 08/18/16 10-325] Previous Rx's Medication Instructions Recorded Morphine Sulfate ER [Ms Contin] 15 mg PO Q12HR #30 tablet 08/01/16 Ondansetron Odt [Zofran Odt] 4 mg PO Q8HR PRN #30 tab 08/19/16 Allergies Allergy/AdvReac Type Severity Reaction Status Date / Time Penicillins AdvReac SEE COMMENT Verified 08/18/16 10:23 Review of Systems ROS Statement: Those systems with pertinent positive or pertinent negative responses have been documented in the HPI. ROS Other: All systems not noted in ROS Statement are negative. Constitutional: Denies: fever Eyes: Denies: eye pain ENT: Denies: ear pain Respiratory: Reports: dyspnea. Denies: cough Cardiovascular: Reports: chest pain (Right-sided upper chest where his tumors are) Endocrine: Reports: fatigue Gastrointestinal: Reports: nausea, vomiting. 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, masses in abdomen that have been causing pain 2 primary tumors in abdomen, tumor pushes on heart, radiation ?5 weeks ago, chemo 07-08-16, short term memory loss since radiation History of Any Multi-Drug Resistant Organisms: None Reported Past Surgical History: Orthopedic Surgery Additional Past Surgical History / Comment(s): cystocopy and KIDNEY STONE REMOVED, ORIF Lt tibia, left knee arthroscopy x 2, rey cataracts,brochoscopy/bx , bx supraclavicular mass Past Anesthesia/Blood Transfusion Reactions: Postoperative Nausea & Vomiting ( PONV) Past Psychological History: No Psychological Hx Reported Smoking Status: Former smoker Past Alcohol Use History: None Reported, Heavy Additional Past Alcohol Use History / Comment(s): quit november 2015 Past Drug Use History: None Reported - Past Family History Mother Family Medical History: Cancer Father Additional Family Medical History / Comment(s): ALS General Exam Limitations: no limitations General appearance: alert, in no apparent distress Head exam: Present: atraumatic Eye exam: Present: normal appearance, PERRL ENT exam: Present: normal oropharynx Neck exam: Present: other (Right-sided fullness which patient states is chronic) Respiratory exam: Present: normal lung sounds bilaterally Cardiovascular Exam: Present: regular rate, normal rhythm GI/Abdominal exam: Present: soft. Absent: tenderness Extremities exam: Present: normal inspection Neurological exam: Present: alert Psychiatric exam: Present: normal affect, normal mood Skin exam: Absent: rash Course Vital Signs 08/28/16 08/28/16 08/28/16 02:24 02:26 03:26 Temperature 98.6 F 97 F L Pulse Rate 110 H 97 98 Respiratory 24 22 18 Rate Blood Pressure 127/75 107/55 O2 Sat by Pulse 94 L 97 97 Oximetry 08/28/16 08/28/16 04:00 05:00 Temperature Pulse Rate 83 97 Respiratory 20 18 Rate Blood Pressure 131/87 113/87 O2 Sat by Pulse 97 97 Oximetry EKG Findings - EKG Comments: EKG Findings:: Sinus tachycardia at 109. NH 182. QRS 86. QT 332. QTC 447. Left axis. Septal Q waves. No acute ST change. Q wave in lead aVF. Medical Decision Making - Medical Decision Making Patient again reexamined and is feeling better. Patient is comfortable with discharge home. Patient will follow-up today with his radiation oncologist. - Lab Data Result diagrams: 08/28/16 02:40 08/28/16 02:40 Lab Results 08/28/16 08/28/16 Range/Units 02:40 02:40 WBC 5.4 (3.8-10.6) k/uL RBC 4.42 (4.30-5.90) m/uL Hgb 13.6 (13.0-17.5) gm/dL Hct 40.9 (39.0-53.0) % MCV 92.6 (80.0-100.0) fL MCH 30.8 (25.0-35.0) pg MCHC 33.2 (31.0-37.0) g/dL RDW 17.4 H (11.5-15.5) % Plt Count 195 (150-450) k/uL Neutrophils % 78 % Lymphocytes % 11 % Monocytes % 8 % Eosinophils % 0 % Basophils % 1 % Neutrophils # 4.2 (1.3-7.7) k/uL Lymphocytes # 0.6 L (1.0-4.8) k/uL Monocytes # 0.4 (0-1.0) k/uL Eosinophils # 0.0 (0-0.7) k/uL Basophils # 0.0 (0-0.2) k/uL Anisocytosis Slight Sodium 140 (137-145) mmol/L Potassium 4.9 (3.5-5.1) mmol/L Chloride 106 (98-107) mmol/L Carbon Dioxide 17 L (22-30) mmol/L Anion Gap 17 mmol/L BUN 18 (9-20) mg/dL Creatinine 1.30 H (0.66-1.25) mg/dL Est GFR (MDRD) Af Amer >60 (>60 ml/min/1.73 sqM) Est GFR (MDRD) Non-Af 56 (>60 ml/min/1.73 sqM) Glucose 95 (74-99) mg/dL Calcium 9.7 (8.4-10.2) mg/dL Total Bilirubin 1.8 H (0.2-1.3) mg/dL AST 73 H (17-59) U/L ALT 86 H (21-72) U/L Alkaline Phosphatase 429 H (38-126) U/L Total Protein 6.5 (6.3-8.2) g/dL Albumin 3.6 (3.5-5.0) g/dL Amylase 38 (30-110) U/L Lipase 61 (23-300) U/L - Radiology Data Radiology results: image reviewed (Chest x-ray shows interval improvement of right para Tracheal mass. No acute abnormality.) Disposition Clinical Impression: Lung cancer, Nausea and vomiting Disposition: HOME SELF-CARE Condition: Stable Instructions: Acute Nausea and Vomiting (ED) Additional Instructions: Please follow-up today with her radiation oncologist as planned. Please also follow-up with your regular oncologist and primary care physician this week. Return for uncontrolled vomiting, pain, fevers, weakness, worsening symptoms or other concerns. Referrals: Luisana Klein MD [Primary Care Provider] - 1-2 days
[2016-08-28 03:31] LABS: Anisocytosis Slight; Basophils % (A) 1 %; CH 31.1; CHCM 33.7; Eosinophils % (A) 0 %; HCT 40.9 % (39.0-53.0); HDW 2.35; HGB 13.6 gm/dL (13.0-17.5); Luc # (Auto) 0.18; Luc % (Auto) 3; Lymphocytes # (A) 0.6 k/uL (1.0-4.8); Lymphocytes % (A) 11 %; MCH 30.8 pg (25.0-35.0); MCHC 33.2 g/dL (31.0-37.0); MCV 92.6 fL (80.0-100.0); Monocytes # (A) 0.4 k/uL (0-1.0); Monocytes % (A) 8 %; Neutrophils # (A) 4.2 k/uL (1.3-7.7); Neutrophils % (A) 78 %; RBC 4.42 m/uL (4.30-5.90); RDW 17.4 % (11.5-15.5); WBC 5.4 k/uL (3.8-10.6); WBC (Perox) 5.36
[2016-08-28 03:43] LABS: ALT 86 U/L (21-72); AST 73 U/L (17-59); Alkaline Phosphatase 429 U/L (38-126); Amylase 38 U/L (30-110); Anion Gap 17 mmol/L; Blood Urea Nitrogen 18 mg/dL (9-20); Calcium 9.7 mg/dL (8.4-10.2); Carbon Dioxide 17 mmol/L (22-30); Chloride 106 mmol/L (98-107); Glucose 95 mg/dL (74-99); Non-African American GFR(MDRD) 56 (>60 ml/min/1.73 sqM); Potassium 4.9 mmol/L (3.5-5.1); Sodium 140 mmol/L (137-145); Total Bilirubin 1.8 mg/dL (0.2-1.3); Total Protein 6.5 g/dL (6.3-8.2)
[2016-08-28] MEDS ORDERED: ONDANSETRON 4 MG/2 ML VIAL IVP STA (04:45)
[2016-08-28] MEDS ORDERED: SODIUM CHLORIDE 0.9% 250 ML IV STA (04:45)
[2016-08-28] MEDS ORDERED: FAMOTIDINE 20 MG/2 ML VIAL IV STA (04:45)
[2016-08-28] MEDS ORDERED: MORPHINE SULFATE 2 MG/ML SYRINGE IVP STA (04:45)
[2016-08-28 05:03] VITALS: PULSE 97; RESP 18
[2016-08-28 05:52] VITALS: BP 114/78; TEMP 98
--- NOTE | 2016-08-28 14:18 | XR ---
EXAM: XR Chest, 2 Views. CLINICAL HISTORY: Reason: pain. There is a reported history of lung carcinoma. TECHNIQUE: Frontal and lateral views of the chest. COMPARISON: 07/09/16 two-view exam. FINDINGS: Lungs: No new defined parenchymal infiltrate. Pleural spaces: No pleural effusion or pneumothorax. Heart: Cardiopericardial silhouette is stable. Mediastinum: When compared to the prior study, the previously seen right paratracheal mass has decreased in size and conspicuity as has the previously noted mass effect upon the right lateral tracheal wall and leftward deviation of the trachea. Bones: Stable in appearance including degenerative changes within the spine and shoulders. IMPRESSION: 1. Interval improvement in previous right paratracheal mass, presumably related to the patient's history of lung carcinoma, and associated mass effect. 2. No new acute intrathoracic abnormality is seen.
== END 2016-08-28 05:53 | disposition home or self-care (01) ==
LOC: EC 02:20
DX: C34.90 Malignant neoplasm of unspecified part of unspecified bronchus or lung (principal); R11.2 Nausea with vomiting, unspecified; R07.9 Chest pain, unspecified; I10 Essential (primary) hypertension; J44.9 Chronic obstructive pulmonary disease, unspecified; E78.5 Hyperlipidemia, unspecified; Z87.891 Personal history of nicotine dependence; Z79.899 Other long term (current) drug therapy; Z88.0 Allergy status to penicillin; Z85.05 Personal history of malignant neoplasm of liver; Z85.841 Personal history of malignant neoplasm of brain; Z87.11 Personal history of peptic ulcer disease; Z87.09 Personal history of other diseases of the respiratory system; Z87.442 Personal history of urinary calculi; Z80.9 Family history of malignant neoplasm, unspecified; Z98.890 Other specified postprocedural states
CPT/HCPCS: 99284; 96374; 96375 ×3; 96376; 96361 ×2; 36415; 80053; 82150; 83690; 85025; 71020; J2270 ×2; J2765; J2405; 77336; 77387; 77412; 93005

== ENCOUNTER 2016-09-03 13:05 | Inpatient (IN) | payer OTHER ==
[2016-09-03] MEDS ORDERED: SODIUM CHLORIDE 0.9% 1,000 ML IV STA ×3 (13:27→18:39)
[2016-09-03] MEDS ORDERED: SODIUM CHLORIDE 0.9% 500 ML IV STA ×2 (13:27→14:49)
[2016-09-03] MEDS ORDERED: ONDANSETRON 4 MG/2 ML VIAL IVP STA ×2 (13:27→16:29)
[2016-09-03 14:11] LABS: Anisocytosis Slight; Basophils % (A) 1 %; CH 31.1; CHCM 32.6; Eosinophils % (A) 0 %; HCT 42.5 % (39.0-53.0); HDW 2.67; HGB 13.9 gm/dL (13.0-17.5); Luc % (Auto) 2; Lymphocytes # (A) 0.4 k/uL (1.0-4.8); Lymphocytes % (A) 4 %; MCH 31.5 pg (25.0-35.0); MCHC 32.7 g/dL (31.0-37.0); MCV 96.1 fL (80.0-100.0); Macrocytosis Slight; Mean Platelet Volume 8.6; Monocytes # (A) 0.4 k/uL (0-1.0); Monocytes % (A) 5 %; Neutrophils # (A) 7.6 k/uL (1.3-7.7); Neutrophils % (A) 88 %; RBC 4.42 m/uL (4.30-5.90); RDW 18.1 % (11.5-15.5); WBC 8.7 k/uL (3.8-10.6); WBC (Perox) 8.24
[2016-09-03 14:24] LABS: ALT 63 U/L (21-72); AST 73 U/L (17-59); Alkaline Phosphatase 433 U/L (38-126); Blood Urea Nitrogen 19 mg/dL (9-20); Calcium 9.4 mg/dL (8.4-10.2); Chloride 106 mmol/L (98-107); Glucose 81 mg/dL (74-99); Magnesium 1.8 mg/dL (1.6-2.3); Non-African American GFR(MDRD) >60 (>60 ml/min/1.73 sqM); Phosphorous 3.2 mg/dL (2.5-4.5); Potassium 4.8 mmol/L (3.5-5.1); Sodium 142 mmol/L (137-145); Total Bilirubin 2.6 mg/dL (0.2-1.3); Total Protein 6.3 g/dL (6.3-8.2)
[2016-09-03 14:30] LABS: Anion Gap 25 mmol/L; Carbon Dioxide 11 mmol/L (22-30)
[2016-09-03 14:32] LABS: Creatine Kinase 91 U/L (55-170)
[2016-09-03 14:33] LABS: INR 1.3 (<1.1); Prothrombin Time 12.7 sec (9.0-12.0)
[2016-09-03 14:38] LABS: Partial Thromboplastin Time 21.3 sec (22.0-30.0)
--- NOTE | 2016-09-03 14:40 | ED ---
General Adult HPI - General Chief complaint: Nausea/Vomiting/Diarrhea Stated complaint: Vomiting Time Seen by Provider: 09/03/16 13:27 Source: patient, RN notes reviewed, old records reviewed Mode of arrival: wheelchair Limitations: no limitations - History of Present Illness Initial comments: This is a 6-year-old male here for evaluation. Patient coming in the ER today for evaluation of weakness, not feeling well, persistent nausea vomiting. Patient has small cell lung cancer going to chemoradiation, patient was getting IV fluid less weak over the week and was unable to get IV fluid and symptoms of progressively worsening, increased weakness, increased nausea and decreased ability to eat swallow or drink. Patient denies any pain no chest pain shortness with abdominal pain, no diarrhea no fevers. - Related Data Home Medications Medication Instructions Recorded Confirmed amLODIPine BESYLATE [Norvasc] 10 mg PO DAILY 09/08/15 09/03/16 ALPRAZolam [Xanax] 0.25 mg PO Q8H PRN 07/09/16 09/03/16 Atorvastatin [Lipitor] 20 mg PO HS 07/09/16 09/03/16 Budesonide-Formot 160-4.5 Mcg 2 puff INHALATION RT-BID 07/26/16 09/03/16 [Symbicort 160-4.5 Mcg Inhaler] Ipratropium-Albuterol Nebulize 3 ml INHALATION RT-QID 07/26/16 09/03/16 [Duoneb 0.5 mg-3 mg/3 ml Soln] HYDROcodone/APAP 10-325MG [[place] 1 tab PO Q4H PRN 08/18/16 09/03/16 10-325] Previous Rx's Medication Instructions Recorded Morphine Sulfate ER [Ms Contin] 15 mg PO Q12HR #30 tablet 08/01/16 Ondansetron Odt [Zofran Odt] 4 mg PO Q8HR PRN #30 tab 08/19/16 Allergies Allergy/AdvReac Type Severity Reaction Status Date / Time Penicillins AdvReac SEE COMMENT Verified 09/03/16 14:49 Review of Systems ROS Statement: Those systems with pertinent positive or pertinent negative responses have been documented in the HPI. ROS Other: All systems not noted in ROS Statement are negative. 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, masses in abdomen that have been causing pain 2 primary tumors in abdomen, tumor pushes on heart, radiation ?5 weeks ago, chemo 07-08-16, short term memory loss since radiation History of Any Multi-Drug Resistant Organisms: None Reported Past Surgical History: Orthopedic Surgery Additional Past Surgical History / Comment(s): cystocopy and KIDNEY STONE REMOVED, ORIF Lt tibia, left knee arthroscopy x 2, rey cataracts,brochoscopy/bx , bx supraclavicular mass Past Anesthesia/Blood Transfusion Reactions: Postoperative Nausea & Vomiting ( PONV) Past Psychological History: No Psychological Hx Reported Smoking Status: Former smoker Past Alcohol Use History: None Reported, Heavy Additional Past Alcohol Use History / Comment(s): quit november 2015 Past Drug Use History: None Reported - Past Family History Mother Family Medical History: Cancer Father Additional Family Medical History / Comment(s): ALS General Exam Limitations: no limitations General appearance: alert, in no apparent distress Head exam: Present: atraumatic, normocephalic, normal inspection Eye exam: Present: normal appearance, PERRL, EOMI. Absent: scleral icterus, conjunctival injection, periorbital swelling ENT exam: Present: normal exam, mucous membranes moist Neck exam: Present: normal inspection. Absent: tenderness, meningismus, lymphadenopathy Respiratory exam: Present: normal lung sounds bilaterally. Absent: respiratory distress, wheezes, rales, rhonchi, stridor Cardiovascular Exam: Present: regular rate, normal rhythm, normal heart sounds. Absent: systolic murmur, diastolic murmur, rubs, gallop, clicks GI/Abdominal exam: Present: soft, normal bowel sounds. Absent: distended, tenderness, guarding, rebound, rigid Extremities exam: Present: normal inspection, full ROM, normal capillary refill. Absent: tenderness, pedal edema, joint swelling, calf tenderness Back exam: Present: normal inspection Neurological exam: Present: alert, oriented X3, CN II-XII intact Psychiatric exam: Present: normal affect, normal mood Skin exam: Present: warm, dry, intact, normal color. Absent: rash Course Vital Signs 09/03/16 13:20 Pulse Rate 107 H Respiratory 18 Rate Blood Pressure 115/75 O2 Sat by Pulse 94 L Oximetry - Reevaluation(s) Reevaluation #1: 09/03/16 15:26 Patient is starting to improve with IV fluid and IV resuscitation EKG Findings - EKG Comments: EKG Findings:: EKG shows sinus tachycardia rate 103, MI 168, QRS 98, QTC 484 Medical Decision Making - Medical Decision Making 60 male in the ER with persistent nausea vomiting diarrhea, profuse or persistent dehydration, symptoms are improved with IV resuscitation, patient would like to trial for discharge discharged - Lab Data Result diagrams: 09/03/16 14:00 09/03/16 14:00 Lab Results 09/03/16 09/03/16 09/03/16 Range/Units 14:00 14:00 14:00 WBC 8.7 (3.8-10.6) k/uL RBC 4.42 (4.30-5.90) m/uL Hgb 13.9 (13.0-17.5) gm/dL Hct 42.5 (39.0-53.0) % MCV 96.1 (80.0-100.0) fL MCH 31.5 (25.0-35.0) pg MCHC 32.7 (31.0-37.0) g/dL RDW 18.1 H (11.5-15.5) % Plt Count 230 (150-450) k/uL Neutrophils % 88 % Lymphocytes % 4 % Monocytes % 5 % Eosinophils % 0 % Basophils % 1 % Neutrophils # 7.6 (1.3-7.7) k/uL Lymphocytes # 0.4 L (1.0-4.8) k/uL Monocytes # 0.4 (0-1.0) k/uL Eosinophils # 0.0 (0-0.7) k/uL Basophils # 0.0 (0-0.2) k/uL Anisocytosis Slight Macrocytosis Slight PT (9.0-12.0) sec INR (<1.1) APTT (22.0-30.0) sec Sodium 142 (137-145) mmol/L Potassium 4.8 (3.5-5.1) mmol/L Chloride 106 (98-107) mmol/L Carbon Dioxide 11 L (22-30) mmol/L Anion Gap 25 mmol/L BUN 19 (9-20) mg/dL Creatinine 1.00 (0.66-1.25) mg/dL Est GFR (MDRD) Af Amer >60 (>60 ml/min/1.73 sqM) Est GFR (MDRD) Non-Af >60 (>60 ml/min/1.73 sqM) Glucose 81 (74-99) mg/dL Calcium 9.4 (8.4-10.2) mg/dL Phosphorus 3.2 (2.5-4.5) mg/dL Magnesium 1.8 (1.6-2.3) mg/dL Total Bilirubin 2.6 H (0.2-1.3) mg/dL AST 73 H (17-59) U/L ALT 63 (21-72) U/L Alkaline Phosphatase 433 H (38-126) U/L Total Creatine Kinase 91 (55-170) U/L CK-MB (CK-2) 1.2 (0.0-2.4) ng/mL CK-MB (CK-2) Rel Index 1.3 Troponin I <0.012 (0.000-0.034) ng/mL Total Protein 6.3 (6.3-8.2) g/dL Albumin 3.5 (3.5-5.0) g/dL 09/03/16 Range/Units 14:00 WBC (3.8-10.6) k/uL RBC (4.30-5.90) m/uL Hgb (13.0-17.5) gm/dL Hct (39.0-53.0) % MCV (80.0-100.0) fL MCH (25.0-35.0) pg MCHC (31.0-37.0) g/dL RDW (11.5-15.5) % Plt Count (150-450) k/uL Neutrophils % % Lymphocytes % % Monocytes % % Eosinophils % % Basophils % % Neutrophils # (1.3-7.7) k/uL Lymphocytes # (1.0-4.8) k/uL Monocytes # (0-1.0) k/uL Eosinophils # (0-0.7) k/uL Basophils # (0-0.2) k/uL Anisocytosis Macrocytosis PT 12.7 H (9.0-12.0) sec INR 1.3 (<1.1) APTT 21.3 L (22.0-30.0) sec Sodium (137-145) mmol/L Potassium (3.5-5.1) mmol/L Chloride (98-107) mmol/L Carbon Dioxide (22-30) mmol/L Anion Gap mmol/L BUN (9-20) mg/dL Creatinine (0.66-1.25) mg/dL Est GFR (MDRD) Af Amer (>60 ml/min/1.73 sqM) Est GFR (MDRD) Non-Af (>60 ml/min/1.73 sqM) Glucose (74-99) mg/dL Calcium (8.4-10.2) mg/dL Phosphorus (2.5-4.5) mg/dL Magnesium (1.6-2.3) mg/dL Total Bilirubin (0.2-1.3) mg/dL AST (17-59) U/L ALT (21-72) U/L Alkaline Phosphatase (38-126) U/L Total Creatine Kinase (55-170) U/L CK-MB (CK-2) (0.0-2.4) ng/mL CK-MB (CK-2) Rel Index Troponin I (0.000-0.034) ng/mL Total Protein (6.3-8.2) g/dL Albumin (3.5-5.0) g/dL Disposition Clinical Impression: Nausea and vomiting, Small cell lung cancer Disposition: HOME SELF-CARE Condition: Good Instructions: Acute Nausea and Vomiting (ED) Referrals: Luisana Klein MD [Primary Care Provider] - 1-2 days
[2016-09-03 14:44] LABS: Creatine Kinase MB 1.2 ng/mL (0.0-2.4); Troponin I <0.012 ng/mL (0.000-0.034)
[2016-09-03] MEDS ORDERED: PANTOPRAZOLE 40 MG/10 ML VIAL IVP STA ×2 (14:50→16:29)
[2016-09-03] MEDS ORDERED: METOCLOPRAMIDE 5 MG/ML 2 ML VIAL IVP STA (16:29)
[2016-09-03] MEDS ORDERED: diphenhydrAMINE 50 MG/ML 1 ML VIAL IVP STA (16:29)
[2016-09-03] MEDS ORDERED: FAMOTIDINE 20 MG/2 ML VIAL IV STA (16:51)
[2016-09-03] MEDS ORDERED: methylPREDNISolone SOD SUCCI 125 MG/2 ML VIAL IV STA (16:51)
[2016-09-03] MEDS ORDERED: EPINEPHrine 1 MG/ML 1 ML AMP SQ ONE (16:51)
[2016-09-03] MEDS ORDERED: SODIUM CHLORIDE 0.9% 1,000 ML IV ONE (18:39)
[2016-09-03] MEDS ORDERED: ONDANSETRON 4 MG/2 ML VIAL IVP PRN (18:39)
[2016-09-03] MEDS ORDERED: LORazepam 2 MG/ML SYRINGE IV STA (18:39)
[2016-09-03] MEDS ORDERED: LORazepam 2 MG/ML SYRINGE IV PRN (18:39)
--- NOTE | 2016-09-03 18:41 | ED ---
Medical Decision Making - Medical Decision Making 16 ER with intractable nausea vomiting agitation. Patient with continued nausea vomiting despite therapy, patient will be admitted for IV resuscitation, symptomatically therapy - Lab Data Result diagrams: 09/03/16 14:00 09/03/16 14:00 Lab Results 09/03/16 09/03/16 09/03/16 Range/Units 14:00 14:00 14:00 WBC 8.7 (3.8-10.6) k/uL RBC 4.42 (4.30-5.90) m/uL Hgb 13.9 (13.0-17.5) gm/dL Hct 42.5 (39.0-53.0) % MCV 96.1 (80.0-100.0) fL MCH 31.5 (25.0-35.0) pg MCHC 32.7 (31.0-37.0) g/dL RDW 18.1 H (11.5-15.5) % Plt Count 230 (150-450) k/uL Neutrophils % 88 % Lymphocytes % 4 % Monocytes % 5 % Eosinophils % 0 % Basophils % 1 % Neutrophils # 7.6 (1.3-7.7) k/uL Lymphocytes # 0.4 L (1.0-4.8) k/uL Monocytes # 0.4 (0-1.0) k/uL Eosinophils # 0.0 (0-0.7) k/uL Basophils # 0.0 (0-0.2) k/uL Anisocytosis Slight Macrocytosis Slight PT (9.0-12.0) sec INR (<1.1) APTT (22.0-30.0) sec Sodium 142 (137-145) mmol/L Potassium 4.8 (3.5-5.1) mmol/L Chloride 106 (98-107) mmol/L Carbon Dioxide 11 L (22-30) mmol/L Anion Gap 25 mmol/L BUN 19 (9-20) mg/dL Creatinine 1.00 (0.66-1.25) mg/dL Est GFR (MDRD) Af Amer >60 (>60 ml/min/1.73 sqM) Est GFR (MDRD) Non-Af >60 (>60 ml/min/1.73 sqM) Glucose 81 (74-99) mg/dL Calcium 9.4 (8.4-10.2) mg/dL Phosphorus 3.2 (2.5-4.5) mg/dL Magnesium 1.8 (1.6-2.3) mg/dL Total Bilirubin 2.6 H (0.2-1.3) mg/dL AST 73 H (17-59) U/L ALT 63 (21-72) U/L Alkaline Phosphatase 433 H (38-126) U/L Total Creatine Kinase 91 (55-170) U/L CK-MB (CK-2) 1.2 (0.0-2.4) ng/mL CK-MB (CK-2) Rel Index 1.3 Troponin I <0.012 (0.000-0.034) ng/mL Total Protein 6.3 (6.3-8.2) g/dL Albumin 3.5 (3.5-5.0) g/dL 09/03/16 Range/Units 14:00 WBC (3.8-10.6) k/uL RBC (4.30-5.90) m/uL Hgb (13.0-17.5) gm/dL Hct (39.0-53.0) % MCV (80.0-100.0) fL MCH (25.0-35.0) pg MCHC (31.0-37.0) g/dL RDW (11.5-15.5) % Plt Count (150-450) k/uL Neutrophils % % Lymphocytes % % Monocytes % % Eosinophils % % Basophils % % Neutrophils # (1.3-7.7) k/uL Lymphocytes # (1.0-4.8) k/uL Monocytes # (0-1.0) k/uL Eosinophils # (0-0.7) k/uL Basophils # (0-0.2) k/uL Anisocytosis Macrocytosis PT 12.7 H (9.0-12.0) sec INR 1.3 (<1.1) APTT 21.3 L (22.0-30.0) sec Sodium (137-145) mmol/L Potassium (3.5-5.1) mmol/L Chloride (98-107) mmol/L Carbon Dioxide (22-30) mmol/L Anion Gap mmol/L BUN (9-20) mg/dL Creatinine (0.66-1.25) mg/dL Est GFR (MDRD) Af Amer (>60 ml/min/1.73 sqM) Est GFR (MDRD) Non-Af (>60 ml/min/1.73 sqM) Glucose (74-99) mg/dL Calcium (8.4-10.2) mg/dL Phosphorus (2.5-4.5) mg/dL Magnesium (1.6-2.3) mg/dL Total Bilirubin (0.2-1.3) mg/dL AST (17-59) U/L ALT (21-72) U/L Alkaline Phosphatase (38-126) U/L Total Creatine Kinase (55-170) U/L CK-MB (CK-2) (0.0-2.4) ng/mL CK-MB (CK-2) Rel Index Troponin I (0.000-0.034) ng/mL Total Protein (6.3-8.2) g/dL Albumin (3.5-5.0) g/dL Disposition Clinical Impression: Nausea and vomiting, Small cell lung cancer, Intractable nausea and vomiting Disposition: ADMITTED IP TO THIS HOSP Condition: Good Instructions: Acute Nausea and Vomiting (ED) Referrals: Luisana Klein MD [Primary Care Provider] - 1-2 days
[2016-09-04] MEDS: ENOXAPARIN 40 MG/0.4 ML SYRINGE SQ SCH (09:13)
[2016-09-04] MEDS: PANTOPRAZOLE 40 MG/10 ML VIAL IVP SCH (09:14)
[2016-09-04] MEDS ORDERED: ALPRAZOLAM 0.25 MG PO PRN (10:06)
[2016-09-04] MEDS: SUCRALFATE 1 GM TAB PO SCH ×3 (10:30→20:14)
[2016-09-04] MEDS: methylPREDNISolone SOD SUCCI 40 MG/ML 1 ML VIAL IV SCH ×2 (10:30→20:15)
[2016-09-04] MEDS ORDERED: SODIUM CHLORIDE 0.9% 1,000 ML IV SCH (10:45)
[2016-09-04] MEDS: SODIUM CHLORIDE 0.9% 1,000 ML IV SCH ×2 (10:47→17:45)
--- NOTE | 2016-09-04 11:32 | HP ---
DATE OF ADMISSION: Patient is a 60-year-old male with small cell lung cancer, is receiving radiation therapy, came in with uncontrollable nausea, vomiting after chemoradiation. Patient does have inflammation of the oral cavity as well and patient is complaining of odynophagia, burning sensation, unable to eat anything and has been vomiting but his vomiting improved now. These are all secondary to the radiation therapy. Patient has radiation jiménez. The esophagus and inflammation secondary to the radiation therapy for lung cancer he is receiving and patient denied and fever chills. Patient denied any abdominal pain. Patient denied any dysuria. The rest of the work-up is all negative. REVIEW OF SYSTEMS: GENERAL: As described in HPI. GASTROINTESTINAL: As described in HPI. HEENT: No recent visual problems or hearing problems. Denied any sore throat. CARDIOVASCULAR: No chest pain, orthopnea, PND, no palpitations, no syncope. PULMONARY: No shortness of breath, no cough, no hemoptysis. NEUROLOGICAL: No headaches, no weakness, no numbness. HEMATOLOGICAL: Denies any bleeding or petechiae. GENITOURINARY: Denies any burning micturition, frequency, or urgency. MUSCULOSKELETAL/RHEUMATOLOGICAL: Denies any joint pain, swelling, or any muscle pain. ENDOCRINE: Denies any polyuria or polydipsia. The rest of the 14 point review of systems is negative. Home medications include amlodipine, Xanax, atorvastatin, budesonide-formoterol, ipratropium, albuterol, hydrocodone, acetaminophen and morphine, ondansetron. Allergic to PENICILLINS. PAST MEDICAL HISTORY: Significant for COPD, lung cancer, receiving radiation therapy, diabetes mellitus, hyperlipidemia, hypertension. PAST SURGICAL HISTORY: Orthopedic surgery. SOCIAL HISTORY: Former smoker. Quit smoking in 2016. Denied any alcohol abuse or any drug abuse. FAMILY HISTORY: Father had amyotrophic lateral sclerosis. Mother had some kind of cancer. PHYSICAL EXAMINATION: VITAL SIGNS: Temperature 97.9, pulse of 93, respiratory rate of 18, blood pressure 129/76, saturating at 97% on room air. HEENT EXAMINATION: Patient has inflammation of the oral cavity and ( ) intact. Patient does not have any postnasal discharge or nasal discharge or ear pain or ear discharge. Normocephalic, atraumatic. No pharyngeal erythema. No thyromegaly. CARDIOVASCULAR: S1 and S2 present. No murmurs, rubs, or gallops. PULMONARY: Chest is clear to auscultation, no wheezing or crackles. ABDOMEN: Soft, nontender, nondistended, normoactive bowel sounds. No palpable organomegaly. MUSCULOSKELETAL: No joint swelling or deformity. EXTREMITIES: No cyanosis, clubbing, or pedal edema. NEUROLOGICAL: Gross neurological examination did not reveal any focal deficits. SKIN: No rashes. LABORATORY DATA: CBC, CMP are essentially within normal limits except for mildly elevated alkaline phosphatase, which is a nonspecific elevation. ASSESSMENT AND PLAN: 1. Nausea, vomiting and poor oral intake and dehydration secondary to poor oral intake. This is secondary to radiation-related esophagitis and mucositis and symptomatic treatment for that along with IV pain medications as he is not able to take anything orally and IV fluids. 2. Mild acute renal failure, IV fluids at 125 mL/h secondary to poor oral intake. 3. Lung cancer for which patient is actively receiving chemotherapy. 4. Diabetes mellitus, will use a sliding scale insulin. 5. Hypertension. Hold off all the other antihypertensives. Patient's blood pressure is fairly within normal limits without any of them.
[2016-09-04] MEDS: METOCLOPRAMIDE 5 MG/ML 2 ML VIAL IVP SCH ×3 (11:50→23:56)
[2016-09-04] MEDS: HYDROcodone/APAP 10-325MG 1 EACH TAB PO PRN (11:54)
[2016-09-04 11:56] VITALS: BMI 30.4
[2016-09-04] MEDS: IPRATROPIUM-ALBUTEROL 3 ML NEB INHALATION SCH ×2 (16:38→20:25)
--- NOTE | 2016-09-04 17:26 | P.CONS ---
History of Present Illness - Reason for Consult Consult date: 09/04/16 known, treatment for malignancy Requesting physician: Min Mccoy - Chief Complaint nausea and vomiting - History of Present Illness Mr. Menchaca is a pleasant male pt well known to our service. Initial consult at [facility] was on 11/25/15, when he presented with right sided upper abdominal pain radiating to the chest and lower abdomen, SOB and wt. loss of 20+ lbs, symptoms were progressive over previous few weeks. He was found to have extensive liver metastases, mediastinal adenopathy and supraclavicular mass that was biopsied and found to be positive for small cell carcinoma, CT brain was negative at that time. He received 4 cycles of PROCESS COORDINATOR 16 and Carboplatin with neulasta support. He was referred for a clinical trial at [facility] and an additional cycle was recommended while he was undergoing assessment for eligibility, so he had cycle 5. [facility] did restaging scans and MRI brain on documented a new 1 x 0.6 cm mass in the left cerebellum. There was no evidence of disease progression elsewhere. He had 10 treatments of WBRT completing that on 05/29/16. Per recommendations from [facility] he had another cycle of chemo completing that on 06/07/16. 06/28/16 CT f/u showed slight improvements and overall stability of disease. Pt subsequently had multiple admissions to [facility] for chest pressure and pain and SOB. CTA's were negative for PE, steroids and nebs helped. He was seen by Radiation Oncology in Jul and it was felt he could benefit from RT to the upper mediastinal mass. He started the same on 08/13/16, and completed RT on 08/28/16. Pt has had nausea and vomiting that is persistent since radiation, he states tongue swelling and difficulty swallowing, which makes him wretch, he has lost more weight. He was hospitalized earlier this month and has been seen in the ER for similar symptoms , he was hydrated in the office x 3 days least week for support to try and keep him out of the hospital but RUQ and LUQ pain were progressive this weekend, he could not keep anything down so he came to hospital. This AM he is stating thirst and wanting fluids orally, denies fever, chest pain, he gets SOB when anxious but compared to pre radiation his respiratory status is much improved. 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, masses in abdomen that have been causing pain 2 primary tumors in abdomen, tumor pushes on heart, radiation 1 WEEK AGO, chemo 07-08-16, short term memory loss since radiation History of Any Multi-Drug Resistant Organisms: None Reported Past Surgical History: Orthopedic Surgery Additional Past Surgical History / Comment(s): cystocopy and KIDNEY STONE REMOVED, ORIF Lt tibia, left knee arthroscopy x 2, rey cataracts,brochoscopy/bx , bx supraclavicular mass Past Anesthesia/Blood Transfusion Reactions: Postoperative Nausea & Vomiting ( PONV) Past Psychological History: No Psychological Hx Reported Smoking Status: Former smoker Past Alcohol Use History: Heavy Additional Past Alcohol Use History / Comment(s): quit november 2015 Past Drug Use History: None Reported - Past Family History Mother Family Medical History: Cancer Father Additional Family Medical History / Comment(s): ALS Medications and Allergies Home Medications Medication Instructions Recorded Confirmed Type ALPRAZolam [Xanax] 0.25 mg PO Q8H PRN 07/09/16 09/03/16 History Budesonide-Formot 160-4.5 Mcg 2 puff INHALATION RT-BID 07/26/16 09/03/16 History [Symbicort 160-4.5 Mcg Inhaler] Ipratropium-Albuterol Nebulize 3 ml INHALATION RT-QID 07/26/16 09/03/16 History [Duoneb 0.5 mg-3 mg/3 ml Soln] HYDROcodone/APAP 10-325MG [Shirley 1 tab PO Q4H PRN 08/18/16 09/03/16 History 10-325] Allergies Allergy/AdvReac Type Severity Reaction Status Date / Time Penicillins AdvReac SEE COMMENT Verified 09/03/16 14:49 Physical Exam Vitals: Vital Signs Temp Pulse Pulse Resp BP Pulse Ox 09/04/16 16:39 88 09/04/16 15:38 97.6 F 89 18 129/81 91 L - Constitutional General appearance: cooperative, no acute distress, obese - EENT Eyes: anicteric sclerae, edentulous, normal appearance ENT: normal oropharynx - Neck Neck: no lymphadenopathy - Respiratory Respiratory: bilateral: CTA - Cardiovascular Rhythm: regular Heart sounds: normal: S1, S2 Abnormal Heart Sounds: no systolic murmur, no diastolic murmur, no rub, no S3 Gallop, no S4 Gallop, no click, no other leg Peripheral Edema: bilateral: 1+ - Gastrointestinal General gastrointestinal: hepatomegaly Localized gastrointestinal: tender: RUQ, LUQ - Integumentary Integumentary: pale - Neurologic Neurologic: CNII-XII intact - Musculoskeletal Musculoskeletal: generalized weakness, strength equal bilaterally - Psychiatric anxious Psychiatric: A&O x's 3 Results CBC & Chem 7: 09/03/16 14:00 09/03/16 14:00 Assessment and Plan (1) Nausea and vomiting Narrative/Plan: Caused by esophageal irritation from radiation, antiemetics have been adjusted and will be titrated for pt comfort, IV fluids and IV meds ordered, clear liquid diet for now. Status: Acute (2) Small cell lung cancer Narrative/Plan: Pt has had recent restaging images, brain lesion has resolved, disease is stable and treatment will be resumed once pt has recovered from radiation. He will be reevaluated in the office prior to initiation of any treatment. Status: Chronic (3) Hepatic metastasis Narrative/Plan: LFTs reviewed, he has had similar values in the past when he has been dehydrated , cont hydration, will monitor LFTs and pt condition. Status: Chronic Plan: Spoke with pt on phone and she stated that pt was confused when she brought him to ER, not making sense and his mental processing seemed off. Possibly due to hepatic encephalopathy, when I spoke with pt this AM he seemed oriented and appropriate. Will follow up on 's concern with close monitoring of pt mentation, no orders at this time.
[2016-09-04] MEDS: ONDANSETRON 4 MG/2 ML VIAL IVP PRN (17:43)
[2016-09-04] MEDS: MORPHINE SULFATE ER 15 MG TABLET PO SCH (20:14)
[2016-09-04] MEDS: SYMBICORT 160-4.5 MCG INHALER INHALATION SCH (20:25)
[2016-09-05] MEDS: ONDANSETRON 4 MG/2 ML VIAL IVP PRN ×2 (02:51→09:03)
[2016-09-05] MEDS: HYDROcodone/APAP 10-325MG 1 EACH TAB PO PRN ×3 (04:55→17:46)
[2016-09-05] MEDS: METOCLOPRAMIDE 5 MG/ML 2 ML VIAL IVP SCH ×4 (05:30→23:05)
[2016-09-05] MEDS: SODIUM CHLORIDE 0.9% 1,000 ML IV SCH (06:37)
[2016-09-05 08:05] LABS: Anisocytosis Slight; CH 30.8; CHCM 31.3; HCT 39.8 % (39.0-53.0); HDW 2.65; HGB 12.4 gm/dL (13.0-17.5); MCH 30.9 pg (25.0-35.0); MCHC 31.2 g/dL (31.0-37.0); MCV 99.2 fL (80.0-100.0); Macrocytosis Slight; Mean Platelet Volume 8.5; RBC 4.02 m/uL (4.30-5.90); RDW 18.4 % (11.5-15.5); WBC 12.1 k/uL (3.8-10.6)
[2016-09-05 08:14] LABS: Anion Gap 18 mmol/L; Calcium 8.7 mg/dL (8.4-10.2); Carbon Dioxide 13 mmol/L (22-30); Chloride 111 mmol/L (98-107); Glucose 83 mg/dL (74-99); Non-African American GFR(MDRD) >60 (>60 ml/min/1.73 sqM); Sodium 142 mmol/L (137-145)
[2016-09-05 08:17] LABS: Blood Urea Nitrogen 19 mg/dL (9-20); Potassium 4.7 mmol/L (3.5-5.1)
[2016-09-05] MEDS: IPRATROPIUM-ALBUTEROL 3 ML NEB INHALATION SCH ×4 (08:27→19:21)
[2016-09-05] MEDS: SYMBICORT 160-4.5 MCG INHALER INHALATION SCH ×2 (08:28→19:21)
[2016-09-05] MEDS: MORPHINE SULFATE ER 15 MG TABLET PO SCH ×2 (09:03→20:21)
[2016-09-05] MEDS: ENOXAPARIN 40 MG/0.4 ML SYRINGE SQ SCH (09:04)
[2016-09-05] MEDS: methylPREDNISolone SOD SUCCI 40 MG/ML 1 ML VIAL IV SCH ×2 (09:04→20:21)
[2016-09-05] MEDS: SUCRALFATE 1 GM TAB PO SCH ×4 (09:04→20:21)
[2016-09-05] MEDS: PANTOPRAZOLE 40 MG/10 ML VIAL IVP SCH (09:05)
--- NOTE | 2016-09-05 10:33 | PN ---
A 60-year-old admitted secondary to nausea, vomiting, unable to tolerate diet well at this time, because of mucositis and esophagitis from radiation injury for his small cell lung cancer. REVIEW OF SYSTEMS: CARDIOVASCULAR: No chest pain, no orthopnea, no PND, no palpitations. PULMONARY: Denied any shortness of breath. No cough or hemoptysis. GASTROINTESTINAL: As described in HPI. NEUROLOGIC: No headaches, no weakness, no numbness. Medications were reviewed. PHYSICAL EXAMINATION: VITAL SIGNS: Temperature 97.4, pulse of 85, respiratory rate of 18, blood pressure 122/83, saturating at 95% on room air. GENERAL: The patient is alert and oriented x3, not in any acute distress. Well developed, well nourished. HEENT: Pupils are round and equally reacting to light. EOMI. No scleral icterus. No conjunctival pallor. Normocephalic, atraumatic. No pharyngeal erythema. No thyromegaly. CARDIOVASCULAR: S1 and S2 present. No murmurs, rubs, or gallops. PULMONARY: Chest is clear to auscultation, no wheezing or crackles. ABDOMEN: Soft, nontender, nondistended, normoactive bowel sounds. No palpable organomegaly. MUSCULOSKELETAL: No joint swelling or deformity. EXTREMITIES: No cyanosis, clubbing, or pedal edema. NEUROLOGICAL: Gross neurological examination did not reveal any focal deficits. SKIN: No rashes. LABORATORY DATA: CBC, BMP are abnormal for elevated WBC count of 12,100 secondary to systemic steroids. ASSESSMENT AND PLAN: 1. Nausea, vomiting secondary to esophagitis and mucositis from radiation related mucosal injury. 2. Mild acute renal failure improved with IV fluids a little, but will continue with gentle hydration like a maintenance fluid because patient is unable to tolerate any significant oral diet very well at this point of time. Will continue with clear liquid diet for now as tolerated. 3. Lung cancer, small cell. Receiving radiation therapy at this time. 4. Type 2 diabetes mellitus. 5. Hypertension, not on any antihypertensives with well-controlled blood pressures.
[2016-09-05] MEDS: LACTATED RINGERS 1,000 ML IV SCH ×2 (10:34→20:29)
[2016-09-06] MEDS: METOCLOPRAMIDE 5 MG/ML 2 ML VIAL IVP SCH ×4 (05:49→23:21)
[2016-09-06] MEDS: LACTATED RINGERS 1,000 ML IV SCH ×2 (06:09→19:52)
[2016-09-06] MEDS: IPRATROPIUM-ALBUTEROL 3 ML NEB INHALATION SCH ×4 (07:18→20:29)
[2016-09-06] MEDS: SYMBICORT 160-4.5 MCG INHALER INHALATION SCH ×2 (07:20→20:29)
[2016-09-06] MEDS: SUCRALFATE 1 GM TAB PO SCH ×4 (08:12→19:56)
[2016-09-06] MEDS: MORPHINE SULFATE ER 15 MG TABLET PO SCH ×2 (08:13→19:56)
[2016-09-06] MEDS: PANTOPRAZOLE 40 MG/10 ML VIAL IVP SCH (08:13)
[2016-09-06] MEDS: ENOXAPARIN 40 MG/0.4 ML SYRINGE SQ SCH (08:13)
[2016-09-06] MEDS: methylPREDNISolone SOD SUCCI 40 MG/ML 1 ML VIAL IV SCH ×2 (08:13→19:57)
[2016-09-06] MEDS: ONDANSETRON 4 MG/2 ML VIAL IVP PRN (08:13)
[2016-09-06] MEDS ORDERED: LORazepam 0.5 MG TAB PO PRN (08:45)
--- NOTE | 2016-09-06 08:54 | P.PN ---
Subjective Principal diagnosis: Nausea and vomiting Pt seen in follow up, he is tolerating only water and some soda, he takes a bite of jello or a Popsicle and the taste gags him. He feels he is talking better, tongue does not feel as swollen, his breathing is stable, has some abd pain, he points to the upper abd, states small hard BM yesterday that he had to strain to pass. Objective - Vital Signs Vital signs: Vital Signs Temp 97.5 F L 09/06/16 08:27 Pulse 94 09/06/16 08:27 Resp 18 09/06/16 08:27 BP 128/82 09/06/16 08:27 Pulse Ox 94 L 09/06/16 08:27 Intake & Output 09/05/16 09/06/16 09/06/16 18:59 06:59 18:59 Intake Total 100 Balance 100 Intake: Intake, IV Titration 100 Amount Lactated Ringers 1,000 ml 100 @ 100 mls/hr IV .Q10H [facility] Rx#:[id number] Other: Voiding Method Toilet Toilet Toilet # Voids 2 2 - Constitutional General appearance: Present: cooperative, mild distress, obese - EENT EENT Comment(s): tongue is mildly swollen, reddened, dry - Respiratory Respiratory: bilateral: CTA - Cardiovascular Rhythm: regular Heart sounds: normal: S1, S2 - Gastrointestinal General gastrointestinal: Present: soft Localized gastrointestinal: tender: epigastric periumbilical - Integumentary Integumentary: Present: pale - Neurologic Neurologic: Present: CNII-XII intact - Musculoskeletal Musculoskeletal: Present: generalized weakness, strength equal bilaterally - Psychiatric Psychiatric Comment(s): flat affect Psychiatric: Present: A&O x's 3 - Labs CBC & Chem 7: 09/05/16 07:01 09/05/16 07:01 Assessment and Plan (1) Nausea and vomiting Narrative/Plan: Caused by esophageal irritation from radiation, antiemetics have been adjusted and will be titrated for pt comfort, IV fluids running. Meds have been adjusted , Dietitian consulted, cont clear liquid diet. Status: Acute (2) Small cell lung cancer Narrative/Plan: Recent imaging shows stable disease. He will be evaluated in the office after he has recovered from radiation for further treatment discussions. Status: Chronic (3) Hepatic metastasis Narrative/Plan: LFTs reviewed, he has had similar values in the past when he has been dehydrated , cont hydration, will monitor LFTs and pt condition. Status: Chronic Plan: Colace ordered for constipation PT ordered to keep pt ambulating Antianxiety meds ordered as pt is anxious about trying to consume any oral intake other then water or soda.
[2016-09-06] MEDS: HYDROcodone/APAP 10-325MG 1 EACH TAB PO PRN ×2 (09:43→15:17)
[2016-09-06] MEDS: DOCUSATE 100 MG CAP PO SCH ×2 (10:46→19:56)
[2016-09-06] MEDS: MAG HYDROX/AL HYDROX/SIMETH 30 ML, LIDOCAINE VISCOUS 30 ML, NYSTATIN 100,000 UNIT/ML SU... PO SCH ×9 (12:43→19:57)
[2016-09-06] MEDS: NYSTATIN 100,000 UNIT/ML SUSP 500,000 UNIT/5 ML CUP PO SCH (21:22)
[2016-09-07] MEDS: METOCLOPRAMIDE 5 MG/ML 2 ML VIAL IVP SCH ×4 (05:22→23:41)
[2016-09-07] MEDS: LACTATED RINGERS 1,000 ML IV SCH ×3 (05:22→16:57)
[2016-09-07] MEDS: MAG HYDROX/AL HYDROX/SIMETH 30 ML, LIDOCAINE VISCOUS 30 ML, NYSTATIN 100,000 UNIT/ML SU... PO SCH ×12 (09:12→21:42)
[2016-09-07] MEDS: DOCUSATE 100 MG CAP PO SCH ×2 (09:13→21:42)
[2016-09-07] MEDS: SUCRALFATE 1 GM TAB PO SCH ×4 (09:13→21:42)
[2016-09-07] MEDS: ENOXAPARIN 40 MG/0.4 ML SYRINGE SQ SCH (09:13)
[2016-09-07] MEDS: methylPREDNISolone SOD SUCCI 40 MG/ML 1 ML VIAL IV SCH ×2 (09:14→21:42)
[2016-09-07] MEDS: MORPHINE SULFATE ER 15 MG TABLET PO SCH ×2 (09:16→21:41)
[2016-09-07] MEDS: PANTOPRAZOLE 40 MG TABLET PO SCH (09:17)
[2016-09-07] MEDS: NYSTATIN 100,000 UNIT/ML SUSP 500,000 UNIT/5 ML CUP PO SCH ×4 (09:17→21:43)
[2016-09-07] MEDS: IPRATROPIUM-ALBUTEROL 3 ML NEB INHALATION SCH ×4 (09:33→19:24)
[2016-09-07] MEDS: SYMBICORT 160-4.5 MCG INHALER INHALATION SCH ×2 (09:33→19:24)
[2016-09-07 13:55] LABS: ALT 45 U/L (21-72); AST 56 U/L (17-59); Alkaline Phosphatase 308 U/L (38-126); Anion Gap 12 mmol/L; Blood Urea Nitrogen 21 mg/dL (9-20); Calcium 8.9 mg/dL (8.4-10.2); Carbon Dioxide 20 mmol/L (22-30); Chloride 107 mmol/L (98-107); Glucose 77 mg/dL (74-99); Non-African American GFR(MDRD) >60 (>60 ml/min/1.73 sqM); Potassium 4.7 mmol/L (3.5-5.1); Sodium 139 mmol/L (137-145); Total Bilirubin 3.3 mg/dL (0.2-1.3); Total Protein 5.9 g/dL (6.3-8.2)
--- NOTE | 2016-09-07 16:00 | P.PN ---
Subjective Principal diagnosis: Nausea and vomiting, radiation esophagitis Pt seen in follow up, he is tolerating only water, juice and some soda, he continues to be fearful to attempt anything other than a few liquids. His tongue swelling is significantly improved, breathing is stable, he is not complaining of any pain today. Objective - Vital Signs Vital signs: Vital Signs Temp 97.9 F 09/07/16 07:00 Pulse 92 09/07/16 09:43 Resp 16 09/07/16 08:00 BP 124/80 09/07/16 07:00 Pulse Ox 93 L 09/07/16 07:00 Intake & Output 09/06/16 09/07/16 09/07/16 18:59 06:59 18:59 Intake Total 800 1200 Balance 800 1200 Weight 110.223 kg Intake: IV 1200 Lactated Ringers 1,000 ml 1200 @ 100 mls/hr IV .Q10H [facility] Rx#:[id number] Intake, IV Titration 800 Amount Lactated Ringers 1,000 ml 800 @ 100 mls/hr IV .Q10H [facility] Rx#:[id number] Other: Voiding Method Toilet Toilet Toilet # Voids 1 - Constitutional General appearance: Present: cooperative, no acute distress, obese - EENT EENT Comment(s): tongue and oral mucosa red and dry - Respiratory Respiratory: bilateral: CTA - Cardiovascular Rhythm: regular Heart sounds: normal: S1, S2 - Peripheral edema leg Peripheral Edema: bilateral: 2+ - Gastrointestinal General gastrointestinal: Present: soft - Neurologic Neurologic: Present: CNII-XII intact - Musculoskeletal Musculoskeletal: Present: generalized weakness, strength equal bilaterally - Labs CBC & Chem 7: 09/05/16 07:01 09/07/16 13:26 Labs: Abnormal Lab Results - Last 24 Hours (Table) 09/07/16 Range/Units 13:26 Carbon Dioxide 20 L (22-30) mmol/L BUN 21 H (9-20) mg/dL Total Bilirubin 3.3 H (0.2-1.3) mg/dL Alkaline Phosphatase 308 H (38-126) U/L Total Protein 5.9 L (6.3-8.2) g/dL Albumin 3.0 L (3.5-5.0) g/dL Assessment and Plan (1) Nausea and vomiting Narrative/Plan: stable Status: Acute (2) Small cell lung cancer Narrative/Plan: pt has completed radiation to chest mass. He has progressive disease in the liver and does need to resume chemotherapy but he needs to be able to maintain adequate nutrition and be mobile. We touched upon the subject of a PEG tube pt will think about it and see how how much he can improve his tolerance of oral intake. If he is still unable to tolerate adequate oral intake after the weekend we will consult Surgery for tube placement. Status: Chronic (3) Hepatic metastasis Narrative/Plan: Bilirubin noted, labs will be monitored Status: Chronic Plan: Colace for constipation PT ordered Antianxiety meds
--- NOTE | 2016-09-07 16:26 | P.PN ---
Subjective Date of service 09/06/2016. Progress note being dictated for Dr. Farias. Interval history: This is 60-year-old gentleman admitted with nausea vomiting secondary to radiation esophagitis and mucositis, acute renal failure in a patient with history of lung cancer and multiple other medical issues. Maintained on IV fluid hydration with renal function improving. Continues to have minimal intake with tongue swelling improving. Denies nausea or vomiting. Complains of constipation.Alk phos and T bili elevated. Denies chest pain, palpitations or increasing shortness of breath. Objective - Vital Signs Vital signs: Vital Signs Temp 97.8 F 09/06/16 15:34 Pulse 92 09/06/16 20:42 Resp 18 09/06/16 15:34 BP 119/77 09/06/16 15:34 Pulse Ox 94 L 09/06/16 20:31 Intake & Output 09/06/16 09/06/16 09/07/16 06:59 18:59 06:59 Intake Total 100 800 Balance 100 800 Weight 110.223 kg Intake: Intake, IV Titration 100 800 Amount Lactated Ringers 1,000 ml 100 800 @ 100 mls/hr IV .Q10H [facility] Rx#:[id number] Other: Voiding Method Toilet Toilet # Voids 2 - Exam PHYSICAL EXAM: VITAL SIGNS: [As above] GENERAL: [Sitting up in chair, no acute distress] HEENT: [Pupils equal conjunctiva normal. Thrush on tongue] NECK: [Supple, no JVD] RESPIRATORY EFFORT:[Normal] LUNGS: [Clear, no crackles or rhonchi] CARDIOVASCULAR[regular S1 and S2 no murmurs rubs or gallops] GI: [Abdomen soft, nontender, positive bowel sounds.] PSYCH: [Alert and oriented -3, mood and affect normal.] NEURO: No focal deficits, moves all 4 extremities, strength and sensation grossly intact - Labs CBC & Chem 7: 09/05/16 07:01 09/07/16 13:26 Assessment and Plan Plan: 1. Nausea, vomiting secondary to radiation esophagitis and mucositis secondary to mucosal injury. 2. [Mild acute renal failure, improved with IV fluids]. 3. [Lung cancer, small cell, receiving outpatient radiation therapy]. 4. [Diabetes mellitus type 2]. 5. [Hypertension]. Plan: Continue on current medication regime ,monitoring and symptomatic treatment. As mentioned above patient has minimal intake of clear liquids, continue on IV fluid hydration. Colace, Nystatin added to med regime. Further recommendations to follow. The impression and plan of care has been dictated as directed. : I performed a H&P examination of this patient and discussed the same with the dictator. I agree with the dictator's note. Any additional findings/opinions/ etc. will be noted.
[2016-09-07] MEDS: LORazepam 1 MG TAB PO SCH (16:56)
[2016-09-07] MEDS: ONDANSETRON 4 MG/2 ML VIAL IVP PRN (17:06)
[2016-09-08] MEDS: LORazepam 1 MG TAB PO SCH ×3 (01:50→17:32)
[2016-09-08] MEDS: METOCLOPRAMIDE 5 MG/ML 2 ML VIAL IVP SCH ×3 (06:20→17:29)
[2016-09-08] MEDS: MORPHINE SULFATE ER 15 MG TABLET PO SCH (08:24)
[2016-09-08] MEDS: ENOXAPARIN 40 MG/0.4 ML SYRINGE SQ SCH (08:25)
[2016-09-08] MEDS: NYSTATIN 100,000 UNIT/ML SUSP 500,000 UNIT/5 ML CUP PO SCH ×4 (08:25→21:41)
[2016-09-08] MEDS: DOCUSATE 100 MG CAP PO SCH ×2 (08:26→21:41)
[2016-09-08] MEDS: methylPREDNISolone SOD SUCCI 40 MG/ML 1 ML VIAL IV SCH ×2 (08:26→21:42)
[2016-09-08] MEDS: SUCRALFATE 1 GM TAB PO SCH ×4 (08:26→21:41)
[2016-09-08] MEDS: PANTOPRAZOLE 40 MG TABLET PO SCH (08:26)
[2016-09-08] MEDS: MAG HYDROX/AL HYDROX/SIMETH 30 ML, LIDOCAINE VISCOUS 30 ML, NYSTATIN 100,000 UNIT/ML SU... PO SCH ×12 (08:26→21:41)
[2016-09-08] MEDS: IPRATROPIUM-ALBUTEROL 3 ML NEB INHALATION SCH ×4 (09:28→20:08)
[2016-09-08] MEDS: SYMBICORT 160-4.5 MCG INHALER INHALATION SCH ×2 (09:31→20:08)
--- NOTE | 2016-09-08 12:04 | PN ---
Patient is admitted with nausea, vomiting secondary to radiation-related esophagitis and mucositis. Patient is feeling quite weak today and patient is still not able to tolerate oral diet. Patient is on steroids for mucositis and inflammation. REVIEW OF SYSTEMS: GENERAL: As described in HPI. CARDIOVASCULAR: No chest pain, no orthopnea, no PND, no palpitations. PULMONARY: Denied any shortness of breath. No cough or hemoptysis. GASTROINTESTINAL: As described in HPI. NEUROLOGIC: No headaches, no weakness, no numbness. Medications were reviewed. PHYSICAL EXAMINATION: VITAL SIGNS: Temperature 97.0, pulse of 105, respiratory rate of 18, blood pressure is 124/84, saturating at 92% on room air. GENERAL: Patient appears to be tired and ( ), little drowsy, oriented x3. HEENT: Pupils are round and equally reacting to light. EOMI. No scleral icterus. No conjunctival pallor. Normocephalic, atraumatic. No pharyngeal erythema. No thyromegaly. CARDIOVASCULAR: S1 and S2 present. No murmurs, rubs, or gallops. PULMONARY: Chest is clear to auscultation, no wheezing or crackles. ABDOMEN: Soft, nontender, nondistended, normoactive bowel sounds. No palpable organomegaly. MUSCULOSKELETAL: No joint swelling or deformity. EXTREMITIES: No cyanosis, clubbing, or pedal edema. NEUROLOGICAL: Gross neurological examination did not reveal any focal deficits. SKIN: No rashes. LABORATORY DATA: Basic metabolic profile is essentially within normal limits. ASSESSMENT AND PLAN: 1. Nausea, vomiting secondary to radiation esophagitis. Patient is on IV fluids. Patient is awaiting PEG tube placement evaluation by Surgery. 2. Mild acute renal failure, improved with IV fluids. 3. Small cell lung cancer receiving radiation therapy as an outpatient. 4. Type 2 diabetes mellitus. 5. Hypertension. PLAN: Continue with IV fluids and evaluation by Surgery for PEG tube placement.
[2016-09-08] MEDS: LACTATED RINGERS 1,000 ML IV SCH ×2 (15:00→21:40)
--- NOTE | 2016-09-08 17:53 | P.PN ---
Subjective Date of service 09/07/2016. Progress note being dictated for Dr. Farias. Interval history: This is 60-year-old gentleman admitted with nausea vomiting secondary to radiation esophagitis and mucositis, acute renal failure in a patient with history of lung cancer and multiple other medical issues. Maintained on steroids, IV fluid hydration . Minimal intake of liquids persists. Tongue swelling slowly improving. Discussing PEG tube placement given slow clinical improvement. Denies nausea or vomiting. Evaluated by physical therapy with home care recommended at discharge. Denies chest pain, palpitations or increasing shortness of breath. Objective - Vital Signs Vital signs: Vital Signs Temp 97.9 F 09/07/16 07:00 Pulse 88 09/07/16 16:12 Resp 16 09/07/16 08:00 BP 124/80 09/07/16 07:00 Pulse Ox 93 L 09/07/16 07:00 Intake & Output 09/06/16 09/07/16 09/07/16 18:59 06:59 18:59 Intake Total 800 1200 Balance 800 1200 Weight 110.223 kg Intake: IV 1200 Lactated Ringers 1,000 ml 1200 @ 100 mls/hr IV .Q10H [facility] Rx#:[id number] Intake, IV Titration 800 Amount Lactated Ringers 1,000 ml 800 @ 100 mls/hr IV .Q10H [facility] Rx#:[id number] Other: Voiding Method Toilet Toilet Toilet # Voids 1 - Exam PHYSICAL EXAM: VITAL SIGNS: [As above] GENERAL: [Sitting up in chair, no acute distress] HEENT: [Pupils equal conjunctiva normal. Thrush on tongue] NECK: [Supple, no JVD] RESPIRATORY EFFORT:[Normal] LUNGS: [Clear, no crackles or rhonchi] CARDIOVASCULAR[regular S1 and S2 no murmurs rubs or gallops] GI: [Abdomen soft, nontender, positive bowel sounds.] PSYCH: [Alert and oriented -3, mood and affect normal.] NEURO: No focal deficits, moves all 4 extremities, strength and sensation grossly intact - Labs CBC & Chem 7: 09/05/16 07:01 09/07/16 13:26 Labs: Abnormal Lab Results - Last 24 Hours (Table) 09/07/16 Range/Units 13:26 Carbon Dioxide 20 L (22-30) mmol/L BUN 21 H (9-20) mg/dL Total Bilirubin 3.3 H (0.2-1.3) mg/dL Alkaline Phosphatase 308 H (38-126) U/L Total Protein 5.9 L (6.3-8.2) g/dL Albumin 3.0 L (3.5-5.0) g/dL Assessment and Plan Plan: 1. Nausea, vomiting secondary to radiation esophagitis and mucositis secondary to mucosal injury. 2. [Mild acute renal failure, improved with IV fluids]. 3. [Lung cancer, small cell, receiving outpatient radiation therapy]. 4. [Diabetes mellitus type 2]. 5. [Hypertension]. Plan: Continue on current medication regime , IV fluid hydration , Cools solution, steroids, monitoring and symptomatic treatment. As mentioned above, PEG tube placement now being considered given slow clinical response. Further recommendations to follow. The impression and plan of care has been dictated as directed. : I performed a H&P examination of this patient and discussed the same with the dictator. I agree with the dictator's note. Any additional findings/opinions/ etc. will be noted.
[2016-09-09] MEDS: LORazepam 1 MG TAB PO SCH ×5 (00:56→21:56)
[2016-09-09] MEDS: MORPHINE SULFATE ER 15 MG TABLET PO SCH ×3 (00:56→21:56)
[2016-09-09] MEDS: METOCLOPRAMIDE 5 MG/ML 2 ML VIAL IVP SCH ×5 (01:43→23:37)
[2016-09-09] MEDS: HYDROcodone/APAP 10-325MG 1 EACH TAB PO PRN ×2 (03:52→13:19)
[2016-09-09] MEDS: LACTATED RINGERS 1,000 ML IV SCH ×3 (05:49→23:37)
[2016-09-09] MEDS: SUCRALFATE 1 GM TAB PO SCH ×4 (08:05→21:57)
[2016-09-09] MEDS: PANTOPRAZOLE 40 MG TABLET PO SCH (08:05)
[2016-09-09] MEDS: ENOXAPARIN 40 MG/0.4 ML SYRINGE SQ SCH (08:05)
[2016-09-09] MEDS: NYSTATIN 100,000 UNIT/ML SUSP 500,000 UNIT/5 ML CUP PO SCH ×4 (08:06→21:57)
[2016-09-09] MEDS: DOCUSATE 100 MG CAP PO SCH ×2 (08:06→21:57)
[2016-09-09] MEDS: MAG HYDROX/AL HYDROX/SIMETH 30 ML, LIDOCAINE VISCOUS 30 ML, NYSTATIN 100,000 UNIT/ML SU... PO SCH ×12 (08:06→21:57)
[2016-09-09] MEDS: methylPREDNISolone SOD SUCCI 40 MG/ML 1 ML VIAL IV SCH ×2 (08:07→21:58)
[2016-09-09] MEDS: IPRATROPIUM-ALBUTEROL 3 ML NEB INHALATION SCH ×4 (08:18→21:41)
[2016-09-09] MEDS: SYMBICORT 160-4.5 MCG INHALER INHALATION SCH ×2 (08:18→21:41)
[2016-09-09] MEDS: ONDANSETRON 4 MG/2 ML VIAL IVP PRN (08:52)
--- NOTE | 2016-09-09 10:02 | P.GSCN ---
History of Present Illness Consult date: 09/09/16 Reason for Consult: Malnutrition, PEG tube History of present illness: This is a 60-year-old male who has a history of metastatic small cell lung cancer. The patient apparently has had poor oral intake. The family is requesting a possible PEG tube to be placed. 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, masses in abdomen that have been causing pain 2 primary tumors in abdomen, tumor pushes on heart, radiation 1 WEEK AGO, chemo 07-08-16, short term memory loss since radiation History of Any Multi-Drug Resistant Organisms: None Reported Past Surgical History: Orthopedic Surgery Additional Past Surgical History / Comment(s): cystocopy and KIDNEY STONE REMOVED, ORIF Lt tibia, left knee arthroscopy x 2, rey cataracts,brochoscopy/bx , bx supraclavicular mass Past Anesthesia/Blood Transfusion Reactions: Postoperative Nausea & Vomiting ( PONV) Past Psychological History: No Psychological Hx Reported Smoking Status: Former smoker Past Alcohol Use History: Heavy Additional Past Alcohol Use History / Comment(s): quit november 2015 Past Drug Use History: None Reported - Past Family History Mother Family Medical History: Cancer Father Additional Family Medical History / Comment(s): ALS Medications and Allergies Home Medications Medication Instructions Recorded Confirmed Type ALPRAZolam [Xanax] 0.25 mg PO Q8H PRN 07/09/16 09/03/16 History Budesonide-Formot 160-4.5 Mcg 2 puff INHALATION RT-BID 07/26/16 09/03/16 History [Symbicort 160-4.5 Mcg Inhaler] Ipratropium-Albuterol Nebulize 3 ml INHALATION RT-QID 07/26/16 09/03/16 History [Duoneb 0.5 mg-3 mg/3 ml Soln] HYDROcodone/APAP 10-325MG [[place] 1 tab PO Q4H PRN 08/18/16 09/03/16 History 10-325] Allergies Allergy/AdvReac Type Severity Reaction Status Date / Time Penicillins AdvReac SEE COMMENT Verified 09/03/16 14:49 Surgical - Exam Vital Signs Pulse Resp BP Pulse Ox 107 H 18 115/75 94 L 09/03/16 13:20 09/03/16 13:20 09/03/16 13:20 09/03/16 13:20 - General no distress - Eyes PERRL - Abdomen Abdomen: soft, non tender Results - Labs 09/05/16 07:01 09/07/16 13:26 Assessment and Plan Plan: 60-year-old male with metastatic small cell lung cancer. The patient has had malnutrition due to poor oral intake. PEG tube will replace by Dr. Holly
--- NOTE | 2016-09-09 11:18 | PN ---
Patient is admitted with nausea, vomiting secondary to radiation-related mucositis and esophagitis. Overall, his clinical condition is progressively getting worse because of his poor nutritional status. Patient is getting quite weak. I believe it is mostly related to his cancer and partly nutritional status and Surgery was consulted for PEG tube placement. REVIEW OF SYSTEMS: CARDIOVASCULAR: No chest pain, no orthopnea, no PND, no palpitations. PULMONARY: Denied any shortness of breath. No cough or hemoptysis. GASTROINTESTINAL: No diarrhea, nausea or vomiting. No abdominal pain. Normoactive bowel sounds. NEUROLOGIC: No headaches, no weakness, no numbness. PHYSICAL EXAMINATION: Temperature 97.5, pulse of 95, respiratory rate of 17, blood pressure is 120/85, saturating at 93% on room air. GENERAL: Patient is quite weak, drowsy as he received Ativan when I evaluated the patient and oriented x3. HEENT: Pupils are round and equally reacting to light. EOMI. No scleral icterus. No conjunctival pallor. Normocephalic, atraumatic. No pharyngeal erythema. No thyromegaly. CARDIOVASCULAR: S1 and S2 present. No murmurs, rubs, or gallops. PULMONARY: Chest is clear to auscultation, no wheezing or crackles. ABDOMEN: Soft, nontender, nondistended, normoactive bowel sounds. No palpable organomegaly. MUSCULOSKELETAL: No joint swelling or deformity. EXTREMITIES: No cyanosis, clubbing, or pedal edema. NEUROLOGICAL: Gross neurological examination did not reveal any focal deficits. SKIN: No rashes. LABORATORY DATA: Basic metabolic profile is essentially within normal limits. ASSESSMENT AND PLAN: 1. Nausea, vomiting secondary to radiation esophagitis. 2. Generalized weakness, deconditioning, malaise secondary to poor worsening nutritional status and malnutrition from poor oral intake. PEG tube evaluation by Surgery. 3. Mild acute renal failure, which resolved at this point of time. 4. Small cell lung cancer receiving radiation therapy as an outpatient. Patient has significant cancer-related weakness and cachexia. 5. Type 2 diabetes mellitus. 6. Hypertension. Continue with IV fluids, evaluation for PEG tube.
[2016-09-10] MEDS: METOCLOPRAMIDE 5 MG/ML 2 ML VIAL IVP SCH ×3 (06:26→18:32)
[2016-09-10] MEDS: SYMBICORT 160-4.5 MCG INHALER INHALATION SCH ×2 (08:32→19:28)
[2016-09-10] MEDS: IPRATROPIUM-ALBUTEROL 3 ML NEB INHALATION SCH ×4 (08:32→19:28)
[2016-09-10] MEDS: NYSTATIN 100,000 UNIT/ML SUSP 500,000 UNIT/5 ML CUP PO SCH ×4 (09:21→20:51)
[2016-09-10] MEDS: MAG HYDROX/AL HYDROX/SIMETH 30 ML, LIDOCAINE VISCOUS 30 ML, NYSTATIN 100,000 UNIT/ML SU... PO SCH ×12 (09:21→20:51)
[2016-09-10] MEDS: SUCRALFATE 1 GM TAB PO SCH ×5 (09:22→22:38)
[2016-09-10] MEDS: methylPREDNISolone SOD SUCCI 40 MG/ML 1 ML VIAL IV SCH ×2 (09:22→20:51)
[2016-09-10] MEDS: MORPHINE SULFATE ER 15 MG TABLET PO SCH ×2 (09:23→20:52)
[2016-09-10] MEDS: DOCUSATE 100 MG CAP PO SCH ×2 (09:23→20:51)
[2016-09-10] MEDS: PANTOPRAZOLE 40 MG TABLET PO SCH (09:23)
[2016-09-10] MEDS: ENOXAPARIN 40 MG/0.4 ML SYRINGE SQ SCH (09:23)
[2016-09-10] MEDS: LORazepam 1 MG TAB PO SCH ×3 (09:23→20:52)
[2016-09-10] MEDS: LACTATED RINGERS 1,000 ML IV SCH ×2 (13:27→20:54)
--- NOTE | 2016-09-10 16:17 | P.PN ---
Subjective Date of service 09/10/2016. Progress note being dictated for Dr. Farias. Interval history: This is 60-year-old gentleman admitted with nausea vomiting secondary to radiation esophagitis and mucositis, acute renal failure in a patient with history of lung cancer and multiple other medical issues. Minimal intake of clear liquids persisted and patient scheduled for PEG tube placement.NPO. Objective - Vital Signs Vital signs: Vital Signs Temp 97.8 F 09/10/16 07:00 Pulse 96 09/10/16 08:45 Resp 16 09/10/16 07:00 BP 129/81 09/10/16 07:00 Pulse Ox 94 L 09/10/16 07:00 Intake & Output 09/09/16 09/10/16 09/10/16 18:59 06:59 18:59 Intake Total 800 1200 800 Balance 800 1200 800 Weight 110.223 kg Intake: IV 800 1200 800 Lactated Ringers 1,000 ml 800 1200 800 @ 100 mls/hr IV .Q10H [facility] Rx#:[id number] Other: Voiding Method Toilet Toilet Toilet # Voids 3 2 1 - Exam PHYSICAL EXAM: VITAL SIGNS: [As above] GENERAL: [Lying in bed, drowsy HEENT: [Pupils equal conjunctiva normal. Tongue edema mildly improved] NECK: [Supple, no JVD] RESPIRATORY EFFORT:[Normal] LUNGS: [Clear, no crackles or rhonchi] CARDIOVASCULAR[regular S1 and S2 no murmurs rubs or gallops] GI: [Abdomen soft, nontender, positive bowel sounds.] PSYCH: [Alert and oriented -2, confused.] NEURO: No focal deficits, - Labs CBC & Chem 7: 09/05/16 07:01 09/07/16 13:26 Assessment and Plan Plan: 1. Nausea, vomiting secondary to radiation esophagitis and mucositis secondary to mucosal injury. 2. [Mild acute renal failure, improved with IV fluids]. 3. [Lung cancer, small cell, receiving outpatient radiation therapy]. 4. [Diabetes mellitus type 2]. 5. [Hypertension]. 6. Generalized weakness, deconditioning, malaise secondary to worsening nutritional status. 7. Malnutrition secondary to poor oral intake, Plan: Continue on current medication regime , IV fluid hydration , Cools solution, steroids, monitoring, and symptomatic treatment. PEG tube placement pending. Prognosis guarded, Further recommendations to follow. The impression and plan of care has been dictated as directed. : I performed a H&P examination of this patient and discussed the same with the dictator. I agree with the dictator's note. Any additional findings/opinions/ etc. will be noted.
[2016-09-11] MEDS: METOCLOPRAMIDE 5 MG/ML 2 ML VIAL IVP SCH ×4 (00:47→17:30)
[2016-09-11] MEDS: LACTATED RINGERS 1,000 ML IV SCH ×2 (06:14→17:30)
--- NOTE | 2016-09-11 07:54 | P.PN ---
Subjective Principal diagnosis: Malnutrition Patient was seen over the weekend by Dr. Armstrong for a consult regarding PEG tube placement. Per the nursing staff yesterday the patient's family was not ready to consent for that procedure. The patient himself is somewhat confused and unable to have an appropriate discussion regarding the risks and benefits of a feeding tube at this time. He is having some pain in his right hip. The chart was reviewed as it pertains to the metastatic small cell lung cancer. Objective - Vital Signs Vital signs: Vital Signs Temp 97.9 F 09/10/16 22:12 Pulse 119 H 09/10/16 22:12 Resp 18 09/11/16 07:24 BP 129/85 09/10/16 22:12 Pulse Ox 89 L 09/10/16 22:12 Intake & Output 09/10/16 09/11/16 09/11/16 18:59 06:59 18:59 Intake Total 800 400 Balance 800 400 Weight 110.223 kg Intake: IV 800 400 Lactated Ringers 1,000 ml 800 400 @ 100 mls/hr IV .Q10H [facility] Rx#:[id number] Other: Voiding Method Toilet Toilet Urinal Urinal Incontinent Incontinent # Voids 1 4 - Exam Abdomen: Soft, firm masses in the upper abdomen consistent with metastatic disease, nontender - Labs CBC & Chem 7: 09/05/16 07:01 09/07/16 13:26 Assessment and Plan (1) Nausea and vomiting Narrative/Plan: Continue discussions with the family regarding extent of care. Will remain on surgical standby for PEG tube if needed. Status: Acute
[2016-09-11] MEDS: IPRATROPIUM-ALBUTEROL 3 ML NEB INHALATION SCH ×4 (08:01→20:34)
[2016-09-11] MEDS: SYMBICORT 160-4.5 MCG INHALER INHALATION SCH ×2 (08:01→20:34)
[2016-09-11] MEDS ORDERED: RX INFO: IV CONTRAST WAS GIVEN 1 EACH MISC MISCELLANE PRN ×2 (08:32→08:34)
[2016-09-11] MEDS: SUCRALFATE 1 GM TAB PO SCH ×4 (09:11→19:51)
[2016-09-11] MEDS: MAG HYDROX/AL HYDROX/SIMETH 30 ML, LIDOCAINE VISCOUS 30 ML, NYSTATIN 100,000 UNIT/ML SU... PO SCH ×12 (09:11→19:51)
[2016-09-11 09:12] LABS: Anisocytosis Slight; Basophils % (A) 0 %; CH 30.7; CHCM 31.6; Eosinophils % (A) 0 %; HCT 41.1 % (39.0-53.0); HDW 2.84; HGB 13.4 gm/dL (13.0-17.5); Luc % (Auto) 2; Lymphocytes # (A) 0.6 k/uL (1.0-4.8); Lymphocytes % (A) 5 %; MCH 31.9 pg (25.0-35.0); MCHC 32.5 g/dL (31.0-37.0); Macrocytosis Slight; Mean Platelet Volume 8.4; Monocytes # (A) 0.7 k/uL (0-1.0); Monocytes % (A) 6 %; Neutrophils # (A) 10.1 k/uL (1.3-7.7); Neutrophils % (A) 87 %; RDW 18.5 % (11.5-15.5); WBC 11.7 k/uL (3.8-10.6); WBC (Perox) 11.72
[2016-09-11] MEDS: NYSTATIN 100,000 UNIT/ML SUSP 500,000 UNIT/5 ML CUP PO SCH ×4 (09:12→19:51)
[2016-09-11 09:19] LABS: INR 2.1 (<1.1); Partial Thromboplastin Time 22.1 sec (22.0-30.0); Prothrombin Time 20.1 sec (9.0-12.0)
[2016-09-11] MEDS: DOCUSATE 100 MG CAP PO SCH ×2 (09:23→19:50)
[2016-09-11] MEDS: MORPHINE SULFATE ER 15 MG TABLET PO SCH (09:24)
[2016-09-11] MEDS: PANTOPRAZOLE 40 MG TABLET PO SCH (09:24)
[2016-09-11 09:29] LABS: Anion Gap 19 mmol/L; Blood Urea Nitrogen 34 mg/dL (9-20); Calcium 9.1 mg/dL (8.4-10.2); Carbon Dioxide 12 mmol/L (22-30); Chloride 111 mmol/L (98-107); Glucose 76 mg/dL (74-99); Non-African American GFR(MDRD) >60 (>60 ml/min/1.73 sqM); Potassium 4.9 mmol/L (3.5-5.1); Sodium 142 mmol/L (137-145)
[2016-09-11] MEDS: LORazepam 2 MG/ML SYRINGE IV STA ×2 (10:09→11:28)
[2016-09-11] MEDS: methylPREDNISolone SOD SUCCI 40 MG/ML 1 ML VIAL IV SCH ×2 (10:10→21:26)
[2016-09-11] MEDS: ENOXAPARIN 40 MG/0.4 ML SYRINGE SQ SCH (10:10)
--- NOTE | 2016-09-11 12:42 | P.PN ---
Subjective Principal diagnosis: Nausea and vomiting, radiation esophagitis Pt seen in follow up today. Pt has progressively declined over the weekend, he is now requiring 4L NC to maintain O2 sat >90%, he is lethargic, confused when awake and staff reports urinary incontinence. Pt opened his eyes to voice and soft touch, he did not answer any questions or speak, he went right back to sleep. Objective - Vital Signs Vital signs: Vital Signs Temp 99.0 F 09/11/16 07:00 Pulse 80 09/11/16 08:22 Resp 18 09/11/16 07:24 BP 126/80 09/11/16 07:00 Pulse Ox 95 09/11/16 08:01 Intake & Output 09/10/16 09/11/16 09/11/16 18:59 06:59 18:59 Intake Total 800 400 Balance 800 400 Weight 110.223 kg Intake: IV 800 400 Lactated Ringers 1,000 ml 800 400 @ 100 mls/hr IV .Q10H [facility] Rx#:[id number] Other: Voiding Method Toilet Toilet Urinal Urinal Incontinent Incontinent # Voids 1 4 - Constitutional General appearance: Present: no acute distress, obese - EENT Eyes: Present: scleral icterus - Respiratory Respiratory: bilateral: diminished ( pt not following commands for deep breathing for assessment) - Cardiovascular Heart sounds: normal: S1, S2 - Peripheral edema leg Peripheral Edema: bilateral: 2+ (non pitting), Other (anasarca) - Gastrointestinal Gastrointestinal Comment(s): hepatomegaly 4 FB below costal margin General gastrointestinal: Present: distended, hepatomegaly - Integumentary Integumentary: Present: jaundiced - Musculoskeletal Musculoskeletal: Present: generalized weakness - Psychiatric Psychiatric: Absent: A&O x's 3, appropriate affect, intact judgment & insight - Labs CBC & Chem 7: 09/11/16 08:55 09/11/16 08:55 Labs: Abnormal Lab Results - Last 24 Hours (Table) 09/11/16 09/11/16 09/11/16 Range/Units 08:55 08:55 08:55 WBC 11.7 H (3.8-10.6) k/uL RBC 4.20 L (4.30-5.90) m/uL RDW 18.5 H (11.5-15.5) % Neutrophils # 10.1 H (1.3-7.7) k/uL Lymphocytes # 0.6 L (1.0-4.8) k/uL PT 20.1 H (9.0-12.0) sec Chloride 111 H (98-107) mmol/L Carbon Dioxide 12 L (22-30) mmol/L BUN 34 H (9-20) mg/dL Assessment and Plan (1) Nausea and vomiting Status: Acute (2) Small cell lung cancer Status: Chronic (3) Hepatic metastasis Narrative/Plan: Pt has declined rapidly over the last 24 hours. CMP and coags ordered to evaluate liver as concern is for fulminant hepatic failure. Pain meds adjusted for liver dysfunction and poor metabolism. Status: Chronic (4) Coagulopathy Narrative/Plan: DVT prophylaxis discontinued as pt is auto anticoagulated secondary to liver compromise Status: Acute (5) Altered mental status Narrative/Plan: This may either be r/t hepatic encephalopathy or metastatic disease, CT brain ordered. Status: Acute Plan: Family meeting has been scheduled for the AM to discuss results of todays testing and options for care.
--- NOTE | 2016-09-11 12:57 | CT ---
EXAMINATION TYPE: CT brain wo/w con DATE OF EXAM: 09/11/2016 12:06 PM COMPARISON: NONE HISTORY: Confusion, history of lung cancer with brain metastases. CT DLP: 2377.2 mGycm, Automated exposure control for dose reduction was used. CONTRAST: Patient injected with 100 mL of Omnipaque 350. CT of the brain is performed utilizing 3 mm thick sections through the posterior fossa and 3 mm thick sections through the remaining calvarium. Study is performed within 24 hours of arrival to the hospital. No abnormal hyperdensity is present to suggest an acute intracranial hemorrhage. No mass lesion is evident. No obvious brain metastases evident. No acute infarcts are evident. There is periventricular white matter hypodensity, likely on the basi s of chronic white matter ischemic changes Ventricles and sulci are appropriate for the patient age. Minimal fluid is within a few mastoid air cells. No septal destruction is evident. Paranasal sinuses appear clear. Some motion artifact is present. IMPRESSIONS: 1. Atrophy with periventricular white matter ischemic changes. 2. No suspicious changes to suggest metastatic lesions are evident. CT cervical spine. COMPARISON: None CT of the cervical spine is performed in the axial plane at 2 mm thick sections. Reconstructed image s in the coronal, and sagittal plane are reviewed on the computer. No acute fractures are evident. Vertebral body alignment is normal. Disc heights are preserved. Vertebral body heights are preserved. No spinal canal stenosis is evident. No neural foraminal stenosis is evident. IMPRESSIONS: 1. Normal CT cervical spine.
[2016-09-11] MEDS: HYDROmorphone 1 MG/ML 1 ML SYRINGE IVP PRN ×3 (13:02→21:26)
--- NOTE | 2016-09-11 13:05 | CT ---
CT CHEST FOR PULMONARY EMBOLISM. EXAMINATION TYPE: CT angio chest DATE OF EXAM: 09/11/2016 12:07 PM INDICATION: SOB CT DLP: 829.5 mGycm, Automated exposure control for dose reduction was used. CONTRAST: Patient injected with 100 mL of Omnipaque 350. COMPARISON: 07/26/2016 TECHNIQUE: CT of the chest is performed on a spiral scan at 2 mm thick sections. Study is performed with intravenous contrast timed for evaluation for pulmonary embolism. This will limit additional po rtions of the evaluation. 3-D MIP images reconstructed by the technologist are reviewed on the compu ter in the coronal and sagittal planes. FINDINGS: No persistent filling defects are evident to suggest an acute pulmonary embolism. There is a 2.4 cm soft tissue density anterior to the geri compatible with a large lymph node. This could be the mass present previously. This may extend as a mass into the right superior mediastinal region with a transverse dimension of 2.5 cm. The ascending aorta diameter at the level of the main pulmonary artery is 4.3 cm. The main pulmonary artery diameter at the bifurcation is 3.6 cm. There is a 2.8 x 2.4 cm area of pneumonitis in the posterior lateral right apex. A 2.3 cm area of pne umonitis is within the anterior medial right apex. A 1.3 cm area of pneumonitis is in the right upper lobe. Series 5 image 39. A 1.1 cm area of pneumonitis within the left lung. Some pneumonitis changes within the right perihilar region. Small left and minimal right pleural effusions are present. Limited CT section through the upper abdomen are unremarkable. IMPRESSIONS: 1. Interval development of small bilateral pleural effusions. 2. Areas of pneumonitis within the right lung apex and to a mild degree within the left upper lung. F indings are nonspecific. Residual carcinoma or postradiation changes could be considered. 3. The mediastinal mass has largely resolved with some residual areas suspicious for enlarged lymphad enopathy. 4. No acute pulmonary embolism.
--- NOTE | 2016-09-11 13:34 | CDI ---
In responding to this query, please exercise your independent professional judgment. The [facility] Coding Staff and Clinical Documentation Specialists appreciate your assistance in clarifying documentation, maintaining compliance with coding guidelines, accurately documenting patients condition and capturing severity of illness. The fact that a question is asked does not imply that any particular answer is desired or expected. Communication forms are a method of clarifying documentation and are not made part of the Legal Health Record. Thank you in advance for your clarification. Last Revision, May 2015 William Schmitt [address] [facility] [place] [address] Documentation Clarification Form Date: 09/11/2016 1:23:00 PM From: Nadia Cristina CCS, CCDS Admit Date: 09/04/2016 2:54:00 PM Patient Name: Reynadlo Menchaca Visit Number: [id number] Discharge Date: Dr. Tristan Farias: Malnutrition has been documented in Surgical Consult and also progress notes dated 09/09, 09/10 & 09/11 by the attending, oncologist & surgeon. History/Risk Factors: 60 yo male, admitted with nausea & vomiting secondary to radiation esophagitis & mucositis Clinical Indicators: Patient has Non Small Cell Lung CA with liver, brain & possibly abdominal metastasis currently receiving radiation therapy with progressive decline & inability to tolerate oral intake, pending discussion & decision regarding PEG tube placement. Labs: Total Protein 6.3 - 5.9; Albumin 3.5 - 3.0. Current BMI: 30.4 Documented 16% involuntary weight loss. Nutritional Assessment: Poor intake: 0-25% meals (clear liquid diet), red/ swollen tongue. Treatment: IV Antiemetic, PPI, IV Steroids, IV Reglan, IV fluids, Supplements: Ensure clear. Consults: Dietary, Surgery (possible PEG placement ) & Oncology In your professional opinion, can you please clarify if these findings signify one of the following conditions? Mild Protein Malnutrition Mild Protein-Calorie Malnutrition Moderate Protein Malnutrition Moderate Protein-Calorie Malnutrition Severe Protein Malnutrition Severe Protein-Calorie Malnutrition Malnutrition following GI surgery Malnutrition Other condition, please specify Unable to determine Please document in your progress notes and discharge summary in order to capture severity of illness and risk of mortality. Include clinical findings that support your diagnosis. FYI: Press F11 to launch patient chart. __x___ Place X here if this finding has no clinical significance, is not applicable or if you are not able to provide any additional documentation. Thank You. [place]
[2016-09-11 14:01] LABS: ALT 57 U/L (21-72); AST 88 U/L (17-59); Alkaline Phosphatase 272 U/L (38-126); Total Bilirubin 4.8 mg/dL (0.2-1.3); Total Protein 5.5 g/dL (6.3-8.2)
--- NOTE | 2016-09-11 17:58 | P.PN ---
Subjective Date of service 09/11/2016. Progress note being dictated for Dr. Farias. Interval history: This is 60-year-old gentleman admitted with nausea vomiting secondary to radiation esophagitis and mucositis, acute renal failure in a patient with history of lung cancer and multiple other medical issues. PEG tube procedure on hold. Condition continues to decline, more confused today, answering only yes and no questions, worsening respiratory function, now requiring oxygen. Maintaining O2 sats of 94% on 4 L nasal cannula. Chest CT reporting interval development of small bilateral pleural effusions, area of pneumonitis within the right lung apex and left upper lung, possible residual carcinoma or post radiation changes, mediastinal mass largely resolved with some residual areas suspicious for enlarged lymphadenopathy, no acute PE. CT of brain reporting atrophy with periventricular white matter ischemic changes, no metastatic lesions reported. INR 2.1, T bili worsening, up to 4.8. Objective - Vital Signs Vital signs: Vital Signs Temp 99.0 F 09/11/16 07:00 Pulse 80 09/11/16 08:22 Resp 18 09/11/16 07:24 BP 126/80 09/11/16 07:00 Pulse Ox 95 09/11/16 08:01 Intake & Output 09/10/16 09/11/16 09/11/16 18:59 06:59 18:59 Intake Total 800 400 Balance 800 400 Weight 110.223 kg Intake: IV 800 400 Lactated Ringers 1,000 ml 800 400 @ 100 mls/hr IV .Q10H [facility] Rx#:[id number] Other: Voiding Method Toilet Toilet Urinal Urinal Incontinent Incontinent # Voids 1 4 - Exam PHYSICAL EXAM: VITAL SIGNS: [As above] GENERAL: [Lying in bed, drowsy, jaundiced HEENT: [Pupils equal conjunctiva normal. NECK: [Supple, no JVD] RESPIRATORY EFFORT:[Normal] LUNGS: Bilaterally Diminished, no crackles or rhonchi] CARDIOVASCULAR[regular S1 and S2 no murmurs rubs or gallops, positive edema] GI: [Abdomen soft, nontender, distended, hepatomegaly, positive bowel sounds.] PSYCH: [Alert and oriented -2, confused.] NEURO: No focal deficits, - Labs CBC & Chem 7: 09/11/16 08:55 09/11/16 08:55 Assessment and Plan Plan: 1. Nausea, vomiting secondary to radiation esophagitis and mucositis secondary to mucosal injury. 2. [Mild acute renal failure, improved with IV fluids]. 3. [Lung cancer, small cell, receiving outpatient radiation therapy]. 4. [Diabetes mellitus type 2]. 5. [Hypertension]. 6. Generalized weakness, deconditioning, malaise secondary to worsening nutritional status. 7. Moderate protein Malnutrition secondary to poor oral intake, stemming from from radiation esophagitis and mucositis. 8. Extensive Liver metastasis, worsening bilirubin, INR 9. Change in mental status, metabolic encephalopathy, multifactorial, including hepatic encephalopathy Plan: Continue on current medication regime , IV fluid hydration , Cools solution, steroids, monitoring, and symptomatic treatment. Family Meeting scheduled tomorrow with Dr. Jerez. Prognosis guarded given multiple complex medical issues. Further recommendations to follow. The impression and plan of care has been dictated as directed. : I performed a H&P examination of this patient and discussed the same with the dictator. I agree with the dictator's note. Any additional findings/opinions/ etc. will be noted.
[2016-09-11] MEDS ORDERED: VANCOMYCIN 1,000 MG in SODIUM CHLORIDE 0.9% 250 ML IVPB STA (18:26)
[2016-09-11] MEDS: PIPERACILLIN-TAZOBACTAM 3.375 GM in DEXTROSE/WATER 1 50ML.BAG IVPB SCH (19:36)
--- NOTE | 2016-09-11 21:56 | P.PN ---
Progress Note - Text The patient has steadily declined, especially over the last 24 hours, but decreased alertness as well as progressive hypoxia. This morning, multiple tests were ordered. CT of the brain was negative for any bleed or evidence of ischemia or edema. CT of the chest was negative for pulmonary embolus. Areas of pneumonitis were seen in the right and left lung, but these were in the radiation field, and are felt to be more likely due to radiation-induced changes rather than infection. His labs showed the continued worsening of the liver, with significant increase in bilirubin, and development of coagulopathy or period of few days. This is in association with the physical exam showing fairly rapid increase in the size of his liver. This is consistent with developing hepatic failure due to rapid cancer progression in liver. Given this condition, and the decline in the patient's performance status, it is highly unlikely that he would benefit in any way from a second line chemotherapy or even be able to tolerate it. On the above clinical impression was discussed with the admitting service. A family meeting is planned for tomorrow, during which the plan would be to discuss comfort care. Given the patient's current situation, rapid deterioration is certainly possible. In that situation, based on the above, it would be most appropriate to proceed with the comfort care other than attempt CPR and intubation. I discussed the same with his over the telephone. I strongly recommended that changing his CODE STATUS to DO NOT RESUSCITATE. She was in agreement. Orders for the same been replaced. The above was discussed with nursing
[2016-09-11 23:24] VITALS: TEMP 98.1
[2016-09-12] MEDS: HYDROmorphone 1 MG/ML 1 ML SYRINGE IVP PRN ×2 (01:02→05:19)
[2016-09-12] MEDS: METOCLOPRAMIDE 5 MG/ML 2 ML VIAL IVP SCH ×2 (01:06→05:20)
[2016-09-12] MEDS: PIPERACILLIN-TAZOBACTAM 3.375 GM in DEXTROSE/WATER 1 50ML.BAG IVPB SCH ×2 (01:07→07:53)
[2016-09-12 02:49] LABS: Glucose,Whole Blood 76 mg/dL (75-99)
[2016-09-12] MEDS: LACTATED RINGERS 1,000 ML IV SCH ×2 (04:38→07:57)
[2016-09-12 07:42] LABS: ALT 66 U/L (21-72); AST 106 U/L (17-59); Alkaline Phosphatase 233 U/L (38-126); Anion Gap 17 mmol/L; Blood Urea Nitrogen 36 mg/dL (9-20); Carbon Dioxide 16 mmol/L (22-30); Chloride 113 mmol/L (98-107); Glucose 75 mg/dL (74-99); Non-African American GFR(MDRD) >60 (>60 ml/min/1.73 sqM); Potassium 4.5 mmol/L (3.5-5.1); Sodium 146 mmol/L (137-145); Total Bilirubin 5.1 mg/dL (0.2-1.3); Total Protein 5.2 g/dL (6.3-8.2)
[2016-09-12] MEDS: MAG HYDROX/AL HYDROX/SIMETH 30 ML, LIDOCAINE VISCOUS 30 ML, NYSTATIN 100,000 UNIT/ML SU... PO SCH ×6 (07:51→11:59)
[2016-09-12] MEDS: SUCRALFATE 1 GM TAB PO SCH (07:51)
[2016-09-12] MEDS: PANTOPRAZOLE 40 MG TABLET PO SCH (07:52)
[2016-09-12] MEDS: NYSTATIN 100,000 UNIT/ML SUSP 500,000 UNIT/5 ML CUP PO SCH (07:52)
[2016-09-12] MEDS: MORPHINE SULFATE ER 15 MG TABLET PO SCH (07:53)
[2016-09-12] MEDS: methylPREDNISolone SOD SUCCI 40 MG/ML 1 ML VIAL IV SCH (07:54)
[2016-09-12] MEDS: DOCUSATE 100 MG CAP PO SCH (07:55)
[2016-09-12 08:52] VITALS: PULSE 100; RESP 18
[2016-09-12 08:55] LABS: Prothrombin Time 19.3 sec (9.0-12.0)
[2016-09-12] MEDS: IPRATROPIUM-ALBUTEROL 3 ML NEB INHALATION SCH ×3 (09:20→15:51)
[2016-09-12] MEDS: SYMBICORT 160-4.5 MCG INHALER INHALATION SCH (09:20)
[2016-09-12] MEDS: LORazepam 2 MG/ML SYRINGE IV PRN ×3 (09:39→16:16)
[2016-09-12] MEDS: MORPHINE SULFATE 2 MG/ML SYRINGE IVP PRN ×3 (12:01→16:16)
[2016-09-12 15:58] VITALS: BP 135/94
[2016-09-12] MEDS ORDERED: MORPHINE SULFATE 100 MG in SODIUM CHLORIDE 0.9% 100 ML IV SCH (17:15)
--- NOTE | 2016-09-12 17:42 | P.PN ---
Subjective Date of service 09/12/2016. Progress note being dictated for Dr. Farias. Interval history: This is 60-year-old gentleman admitted with nausea vomiting secondary to radiation esophagitis and mucositis, acute renal failure in a patient with history of lung cancer and multiple other medical issues. Condition continued to decline, worsening hypoxia, worsening bili and coagulopathy: Liver failure, worsening mentation. Last night, Dr. Jerez discussed with and patient was made and code, no CPR, no intubation, comfort care. This morning hospice has been consulted. Objective - Vital Signs Vital signs: Vital Signs Temp 98.1 F 09/12/16 15:00 Pulse 100 09/12/16 15:00 Resp 18 09/12/16 15:00 BP 135/94 09/12/16 15:00 Pulse Ox 94 L 09/12/16 15:00 Intake & Output 09/11/16 09/12/16 09/12/16 18:59 06:59 18:59 Intake Total 805 1050 850 Balance 805 1050 850 Intake: IV 800 1050 850 Lactated Ringers 1,000 ml 800 700 800 @ 100 mls/hr IV .Q10H [facility] Rx#:[id number] Piperacillin-Tazobactam 3 100 50 .375 gm In Dextrose/Water 1 50ml.bag @ 12.5 mls/hr IVPB Q8HR [facility] Rx#: [id number] Vancomycin 1,000 mg In 250 Sodium Chloride 0.9% 250 ml @ 125 mls/hr IVPB ONCE STA Rx#:[id number] Oral 5 Other: Voiding Method Urinal Urinal Urinal Incontinent Incontinent Incontinent # Voids 3 1 - Exam PHYSICAL EXAM: VITAL SIGNS: [As above] GENERAL: [Lying in bed, obtunded, jaundiced HEENT: [Pupils equal conjunctiva normal. NECK: [Supple, no JVD] RESPIRATORY EFFORT:[Normal] LUNGS: Bilaterally Diminished, scattered rhonchi] CARDIOVASCULAR[regular S1 and S2 no murmurs rubs or gallops, positive edema] GI: [Abdomen soft, nontender, distended, hepatomegaly, positive bowel sounds.] - Labs CBC & Chem 7: 09/11/16 08:55 09/12/16 07:13 Labs: Abnormal Lab Results - Last 24 Hours (Table) 09/11/16 09/12/16 09/12/16 Range/Units 18:42 07:13 07:13 PT 19.3 H (9.0-12.0) sec Sodium 146 H (137-145) mmol/L Chloride 113 H (98-107) mmol/L Carbon Dioxide 16 L (22-30) mmol/L BUN 36 H (9-20) mg/dL Total Bilirubin 5.1 H (0.2-1.3) mg/dL AST 106 H (17-59) U/L Alkaline Phosphatase 233 H (38-126) U/L Ammonia 71 H (<30) umol/L Total Protein 5.2 L (6.3-8.2) g/dL Albumin 2.7 L (3.5-5.0) g/dL Assessment and Plan Plan: 1. Nausea, vomiting secondary to radiation esophagitis and mucositis secondary to mucosal injury. 2. [Mild acute renal failure, improved with IV fluids]. 3. [Lung cancer, small cell, receiving outpatient radiation therapy]. 4. [Diabetes mellitus type 2]. 5. [Hypertension]. 6. Generalized weakness, deconditioning, malaise secondary to worsening nutritional status. 7. Moderate protein Malnutrition secondary to poor oral intake, stemming from from radiation esophagitis and mucositis. 8. Extensive Liver metastasis, worsening bilirubin, INR; hepatic failure 9. Change in mental status, metabolic encephalopathy, multifactorial, including hepatic encephalopathy 10. No code, no CPR, no intubation 11. Comfort care. Plan: Patient has been made no code, no CPR, no intubation with comfort care. Hospice consulted. Comfort care protocol initiated. Family at bedside. Questions and concerns addressed. Support given. Prognosis poor. The impression and plan of care has been dictated as directed. : I performed a H&P examination of this patient and discussed the same with the dictator. I agree with the dictator's note. Any additional findings/opinions/ etc. will be noted.
[2016-09-12] MEDS ORDERED: LORazepam 2 MG/ML SYRINGE IV SCH (19:15)
== END 2016-09-12 19:33 | disposition still patient (30) | DRG 157 ==
LOC: EC 13:05 → OBSVTOIN 18:39 → 5MS5E 18:39 → 5ONC 19:41 → OBSVTOIN 09-04 14:54 → INTOOBSV 09-04 14:54 → UNDODISIN 09-12 19:33
PROVIDERS: ADMIT Hospitalist; ATTEND Hospitalist
DX: K12.31 Oral mucositis (ulcerative) due to antineoplastic therapy (principal); G93.41 Metabolic encephalopathy; N17.9 Acute kidney failure, unspecified; C78.7 Secondary malignant neoplasm of liver and intrahepatic bile duct; C79.31 Secondary malignant neoplasm of brain; D68.9 Coagulation defect, unspecified; E86.0 Dehydration; E46 Unspecified protein-calorie malnutrition; C34.90 Malignant neoplasm of unspecified part of unspecified bronchus or lung; E11.9 Type 2 diabetes mellitus without complications; E78.5 Hyperlipidemia, unspecified; I10 Essential (primary) hypertension; K20.8 Other esophagitis; K59.00 Constipation, unspecified; K72.90 Hepatic failure, unspecified without coma; R09.02 Hypoxemia; R59.0 Localized enlarged lymph nodes; J44.9 Chronic obstructive pulmonary disease, unspecified; K57.90 Diverticulosis of intestine, part unspecified, without perforation or abscess without bleeding; M19.90 Unspecified osteoarthritis, unspecified site; R32 Unspecified urinary incontinence; Z51.5 Encounter for palliative care; Z66 Do not resuscitate; Z79.899 Other long term (current) drug therapy; Z87.891 Personal history of nicotine dependence; Z88.0 Allergy status to penicillin; Y84.2 Radiological procedure and radiotherapy as the cause of abnormal reaction of the patient, or of later complication, without mention of misadventure at the time of the procedure
CPT/HCPCS: 36415; 70470; 71275; 80048; 80053; 82140; 82550; 82553; 83735; 84100; 84484; 85025; 85027; 85610; 85730; 93005; 94640; 94760; 96361; 96372; 96374; 96375; 96376; 99212; 99285

== ENCOUNTER 2016-09-12 19:40 | Inpatient (IN) | payer OTHER ==
[2016-09-12] MEDS ORDERED: MORPHINE SULFATE 100 MG in SODIUM CHLORIDE 0.9% 100 ML IV SCH (23:00)
[2016-09-12] MEDS ORDERED: LORazepam 2 MG/ML SYRINGE IV PRN (23:02)
--- NOTE | 2016-09-13 13:25 | P.HPIM ---
History of Present Illness H&P Date: 09/13/16 Chief Complaint: [facility] hospice Please refer to Consult dated 09/04/16 for full malignancy history and details of clinical course of the patient. Pt is admitted [facility] to hospice. Standing orders created and signed by Dr. Jerez, pt to be stabilized and then discharged to home with family under hospice care. 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, masses in abdomen that have been causing pain 2 primary tumors in abdomen, tumor pushes on heart, radiation 1 WEEK AGO, chemo 07-08-16, short term memory loss since radiation History of Any Multi-Drug Resistant Organisms: None Reported Past Surgical History: Orthopedic Surgery Additional Past Surgical History / Comment(s): cystocopy and KIDNEY STONE REMOVED, ORIF Lt tibia, left knee arthroscopy x 2, rey cataracts,brochoscopy/bx , bx supraclavicular mass Past Anesthesia/Blood Transfusion Reactions: Postoperative Nausea & Vomiting ( PONV) Past Psychological History: No Psychological Hx Reported Smoking Status: Former smoker Past Alcohol Use History: Heavy Additional Past Alcohol Use History / Comment(s): quit november 2015 Past Drug Use History: None Reported - Past Family History Mother Family Medical History: Cancer Father Additional Family Medical History / Comment(s): ALS Medications and Allergies Home Medications Medication Instructions Recorded Confirmed Type ALPRAZolam [Xanax] 0.25 mg PO Q8H PRN 07/09/16 09/12/16 History Budesonide-Formot 160-4.5 Mcg 2 puff INHALATION RT-BID 07/26/16 09/12/16 History [Symbicort 160-4.5 Mcg Inhaler] Ipratropium-Albuterol Nebulize 3 ml INHALATION RT-QID 07/26/16 09/12/16 History [Duoneb 0.5 mg-3 mg/3 ml Soln] HYDROcodone/APAP 10-325MG [Drewsey 1 tab PO Q4H PRN 08/18/16 09/12/16 History 10-325] Allergies Allergy/AdvReac Type Severity Reaction Status Date / Time Penicillins AdvReac SEE COMMENT Verified 09/03/16 14:49 Physical Exam Vitals: Intake and Output 09/12/16 09/13/16 09/13/16 22:59 06:59 14:59 Intake Total 8 16 Balance 8 16 Intake: IV 8 16 Morphine Sulfate 100 mg 8 16 In Sodium Chloride 0.9% 100 ml @ 2 MG/HR 2.08 mls /hr IV .Q24H [facility] Rx#: [id number] Other: Voiding Method Incontinent Incontinent # Voids 1 Weight 116.5 kg Thrombosis Risk Factor Assmnt - Choose All That Apply Each Factor Represents 1 point: Abnormal pulmonary function (COPD), Age 41-60 years, Obesity (BMI >25), Swollen legs (current) Other Risk Factors: Yes Each Risk Factor Represents 2 Points: Malignancy Other congenital or acquired thrombophilia - If yes, enter type in comment: No Thrombosis Risk Factor Assessment Total Risk Factor Score: 6 Thrombosis Risk Factor Assessment Level: High Risk Assessment and Plan Plan: Hospice care, pt will be discharged to home as soon as arrangements are made and home equipment is available and in place. General inpatient orders have been signed by Dr. Jerez with parameters for titration of meds for pt comfort. Defer to hospice for management.
--- NOTE | 2016-10-05 14:06 | P.DS ---
Providers Date of admission: 09/12/16 19:40 Expected date of discharge: 09/13/16 Attending physician: Gustavo Jerez Primary care physician: Stated None Hospital Course: Pt was admitted 09/13/16 under [facility] for hospice, pt . Plan - Discharge Summary Discharge Disposition: - Preliminary Cause of Preliminary Cause of : metastatic lung cancer Pending Studies Pending Results: none
== END 2016-09-13 20:40 | disposition expired | DRG 436 ==
LOC: 5ONC 19:40
PROVIDERS: ADMIT Internal Medicine Hematology & Oncology; ATTEND Internal Medicine Hematology & Oncology
DX: C78.7 Secondary malignant neoplasm of liver and intrahepatic bile duct (principal); C79.31 Secondary malignant neoplasm of brain; C79.89 Secondary malignant neoplasm of other specified sites; E11.9 Type 2 diabetes mellitus without complications; E78.5 Hyperlipidemia, unspecified; I10 Essential (primary) hypertension; J44.9 Chronic obstructive pulmonary disease, unspecified; K57.90 Diverticulosis of intestine, part unspecified, without perforation or abscess without bleeding; M19.90 Unspecified osteoarthritis, unspecified site; R32 Unspecified urinary incontinence; R41.3 Other amnesia; Z87.891 Personal history of nicotine dependence; Z51.5 Encounter for palliative care; Z79.899 Other long term (current) drug therapy; Z88.0 Allergy status to penicillin